=== PATIENT | male | born 1950 | race Caucasian/White ===

== ENCOUNTER 2016-06-05 11:03 | Inpatient (IN) ==
[2016-06-05] MEDS ORDERED: Piperacillin/Tazobactam 3.375 GM in D5% in Water (Mini-Bag+) 100 ML IVPB ONE (11:51)
[2016-06-05] MEDS ORDERED: Vancomycin 1,000 MG in D5% in Water 250 ML IV ONE (11:51)
--- NOTE | 2016-06-05 11:55 | Emergency Department Note ---
Disposition Clinical Impression: Foot ulcer, Cellulitis, Fever Disposition: Admitted As Inpatient Condition: Good Referrals: NO,PCP [Primary Care Provider] - Forms: ED Satisfaction Letter Time of Disposition: 13:36 Lower Extremity Injury HPI - General Chief Complaint: ED Recheck/Abnormal Lab/Rx Stated Complaint: foot wound Time Seen by Provider: 06/05/16 11:40 Source: police Mode of arrival: private vehicle Limitations: no limitations Nursing Notes Reviewed: Yes Vital Signs Reviewed: Yes - History of Present Illness HPI Narrative: This is a 65-year-old male who presents with police with an injury to his right plantar foot with a nail approximately 3 weeks ago. Patient is diabetic. Patient has an ulcer to his plantar right foot and he has redness and swelling of the right foot and streaking going up his right leg. Patient did finish some oral antibiotics through the [facility]. Patient states he has gotten worse no better. Patient's not had any fevers according to him but he is running a fever here. Pt Subjective Complaint: foot injury Injury location: Right foot - Related Data Allergies Allergy/AdvReac Type Severity Reaction Status Date / Time No Known Allergies Allergy Verified 11/30/15 16:37 All systems ED: reviewed and negative except as stated. Constitutional: Reports: fever. Denies: chills, weakness, weight change Eyes: Denies: eye pain, eye discharge, vision change ENT ED: Denies: ear pain, throat pain, dental pain, hearing loss, epistaxis, congestion, dysphagia Cardiovascular: Denies: chest pain, palpitations, dyspnea on exertion, edema, syncope Respiratory: Denies: cough, dyspnea, wheezes, hemoptysis, stridor Gastrointestinal: Denies: abdominal pain, nausea, vomiting, diarrhea, constipation, hematemesis, melena, hematochezia Genitourinary: Denies: urgency, dysuria, frequency, hematuria Musculoskeletal: Reports: arthralgia (R foot pain). Denies: back pain, neck pain, myalgia Integumentary: Reports: other (redness to R foot and R leg, ulcer to R plantar foot). Denies: rash, abrasion, lesions Neurological: Denies: headache, weakness, numbness, paresthesias, confusion, abnormal gait, vertigo Psychiatric: Denies: anxiety, depression, suicidal thoughts, homicidal thoughts , auditory hallucinations, visual hallucinations Endocrine: Denies: fatigue Hematological/Lymphatic: Denies: easy bleeding, easy bruising Allergic/Immunologic: Denies: facial swelling, urticaria Past Medical History - Past Medical History Attestation: Yes The following information was validated with the patient. Source: patient Medical history: Reports: cancer, diabetes, hyperlipidemia, hypertension Psychiatric history: Reports: anxiety, depression - Social History Smoking Status: Current every day smoker Smokeless Tobacco Status: No Alcohol use: Reports: none Drug use: Reports: none Physical Exam - General Limitations: no limitations General appearance: alert, in no apparent distress - Head Head exam: atraumatic, normocephalic, normal inspection - Eye Eye exam: Present: normal appearance, PERRL, EOMI - ENT ENT exam: normal exam, normal oropharynx, mucous membranes moist - Expanded ENT Exam External ear exam: Present: normal external inspection Mouth exam: Present: normal external inspection Teeth exam: Present: normal inspection Throat exam: Present: normal inspection - Neck Neck exam: Present: normal inspection, full ROM, trachea midline - Chest Chest inspection: Present: normal inspection, symmetric chest wall rise - Respiratory Respiratory exam: Present: normal lung sounds bilaterally - Cardiovascular Cardiovascular exam: Present: regular rate, normal rhythm, normal heart sounds - Abdominal Exam Abdominal exam: Present: soft, Non-Tender. Absent: tenderness, distention, guarding, rebound, rigidity - Extremities Exam Extremities exam: Present: normal inspection, full ROM, tenderness (R foot). Absent: pedal edema - Expanded Upper Extremity Exam Shoulder exam: Present: normal inspection, full ROM Arm exam: Present: normal inspection, full ROM Elbow exam: Present: normal inspection, full ROM Forearm/Wrist exam: Present: normal inspection, full ROM Hand exam: Present: normal inspection, full ROM Vascular exam: Normal: capillary refill, radial pulse - Expanded Lower Extremity Exam Hip/Pelvis exam: Present: normal inspection, full ROM Upper leg exam: Present: normal inspection, full ROM Knee exam: Present: normal inspection, full ROM Lower leg exam: Present: normal inspection, full ROM, erythema (R) Ankle exam: Present: normal inspection, full ROM, swelling (R), erythema (R) Foot/toe exam: Present: normal inspection, full ROM, swelling (R foot), erythema (R foot), other (ulcer to plantar foot) Neurovascular/Tendon exam: Absent: motor deficit, sensory deficit, tendon deficit - Back Exam Back exam: Present: normal inspection, full ROM. Absent: tenderness - Neurological Exam Neurological exam: Present: alert, oriented X3 - Expanded Neurological Exam Patient oriented to: Present: person, place, time Coma Scale Eye Opening: Spontaneous Coma Scale Motor Response: Obeys Commands Coma Scale Verbal Response: Oriented Coma Scale Total: 15 - Psychiatric Psychiatric exam: Present: normal affect, normal mood - Skin Skin exam: Present: warm, dry, normal color, other (ulcer to plantar R foot about 2 cm x 3 cm) Course - Consultations Consultation #1: I spoke with Dr. Norah garcia to admit and wants a call to Podiatry. Time: 13:36 Consultation #2: I spoke with Dr. Smith he will consult on the pt. Time: 13:39 Vital Signs Temperature 103.1 F H 06/05/16 11:14 Pulse Rate 84 06/05/16 11:14 Respiratory Rate 16 06/05/16 11:14 Blood Pressure 124/65 06/05/16 11:14 O2 Sat by Pulse Oximetry 98 06/05/16 11:14 Temperature 103.1 F H 06/05/16 11:14 Pulse Rate 84 06/05/16 11:14 Respiratory Rate 16 06/05/16 11:14 Blood Pressure 124/65 06/05/16 11:14 O2 Sat by Pulse Oximetry 98 06/05/16 11:14 Oxygen Delivery Oxygen Delivery Room Air Extremity Injury, Lower - Medical Records Medical records reviewed: Yes I reviewed the patient's medical records. - Lab Data Lab results reviewed: Yes I reviewed the patient's lab results. Result diagrams: 06/05/16 12:26 06/05/16 12:26 Lab Results 06/05/16 06/05/16 06/05/16 Range/Units 12:26 12:26 12:26 WBC 15.5 H (4.3-11.1) K/mcL RBC 3.89 L (4.19-5.50) M/mcL Hgb 12.0 L (12.9-16.9) g/dL Hct 35.5 L (37.5-50.1) % MCV 91.3 (83.0-100.0) fL MCH 30.8 (28.0-33.3) pg MCHC 33.8 (31.6-35.5) g/dL RDW 12.7 (11.5-14.5) % Plt Count 179 (140-400) K/mcL MPV 10.4 (9.4-12.4) fL Immature Gran % 0.7 (0-4) % Seg Neutrophils % 82.5 % Lymphocytes % 8.2 % Monocytes % 8.2 % Eosinophils % 0.3 % Basophils % 0.1 % Neutrophils # 12.8 H (1.6-8.9) K/mcL Lymphocytes # 1.3 (0.6-4.6) K/mcL Monocytes # 1.3 (0.0-1.3) K/mcL Eosinophils # 0.0 (0.0-0.6) K/mcL Basophils # 0.0 (0.0-0.2) K/mcL PT 16.9 H (9.4-12.1) Seconds INR 1.5 Sodium 132 L (136-145) mEq/L Potassium 4.0 (3.5-4.5) mEq/L Chloride 98 (98-109) mEq/L Carbon Dioxide 26 (19-29) mEq/L BUN 15 (8-26) mg/dL Creatinine 1.08 (0.72-1.25) mg/dL Est GFR ( Amer) > 60 (> 60) Est GFR (Non-Af Amer) > 60 (> 60) BUN/Creatinine Ratio 14 (6-26) Glucose 53 L (70-99) mg/dL Calculated Osmolality 272 L (280-300) Calcium 9.4 (8.6-10.8) mg/dL - Radiology Data Radiology results reviewed: Yes I reviewed the patient's radiology results. - EKG Data EKG attestation: Yes I reviewed and interpreted this EKG. EKG shows normal: sinus rhythm Rate: normal Rhythm: NSR Crosby/QRS: left axis deviation Interpretation: no acute changes, normal EKG
[2016-06-05 12:46] LABS: Basophils % 0.1 %; Eosinophils % 0.3 %; Hematocrit 35.5 % (37.5-50.1); Immature Granulocytes % 0.7 % (0-4); Lymphocytes # 1.3 K/mcL (0.6-4.6); Lymphocytes % 8.2 %; Mean Corpuscular HGB Conc 33.8 g/dL (31.6-35.5); Mean Corpuscular Hemoglobin 30.8 pg (28.0-33.3); Mean Corpuscular Volume 91.3 fL (83.0-100.0); Mean Platelet Volume 10.4 fL (9.4-12.4); Monocytes # 1.3 K/mcL (0.0-1.3); Monocytes % 8.2 %; Neutrophils # 12.8 K/mcL (1.6-8.9); Platelet Count 179 K/mcL (140-400); Red Blood Count 3.89 M/mcL (4.19-5.50); Red Cell Distribution Width 12.7 % (11.5-14.5); Segmented Neutrophils % 82.5 %
[2016-06-05 13:34] LABS: BUN/Creatinine Ratio 14 (6-26); Blood Urea Nitrogen 15 mg/dL (8-26); Calcium 9.4 mg/dL (8.6-10.8); Carbon Dioxide 26 mEq/L (19-29); Chloride 98 mEq/L (98-109); Glucose 53 mg/dL (70-99); Osmolality,Calculated 272 (280-300); Sodium 132 mEq/L (136-145); eGFR For African Americans > 60 (> 60); eGFR For Non-African Americans > 60 (> 60)
[2016-06-05 13:36] LABS: INR 1.5; Prothrombin Time 16.9 Seconds (9.4-12.1)
[2016-06-05 13:39] LABS: Activated Partial Thrombo Time 34.6 Seconds (26.0-36.0)
[2016-06-05] MEDS ORDERED: Naloxone 0.4 MG/ML INJ IVP PRN (13:45)
[2016-06-05] MEDS ORDERED: Ondansetron 4 MG/2 ML VIAL IVP PRN (13:45)
[2016-06-05] MEDS: Acetaminophen 325 MG TABLET PO PRN (14:14)
[2016-06-05] MEDS ORDERED: Td (TENIVAC) Vaccine 0.5 ML VIAL IM ONE (14:19)
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
[2016-06-05 14:42] LABS: Alanine Aminotransferase 49 Units/L (0-55); Albumin 2.4 g/dL (3.5-5.0); Albumin/Globulin Ratio 0.5 (1.1-2.2); Alkaline Phosphatase 163 Units/L (38-126); Aspartate Amino Transferase 63 Units/L (5-34); BUN/Creatinine Ratio 13 (6-26); Bilirubin,Total 1.2 mg/dL (0.2-1.2); Blood Urea Nitrogen 14 mg/dL (8-26); Calcium 8.6 mg/dL (8.6-10.8); Carbon Dioxide 26 mEq/L (19-29); Chloride 97 mEq/L (98-109); Globulin 5.2 g/dL (2.4-3.5); Glucose 93 mg/dL (70-99); Osmolality,Calculated 270 (280-300); Potassium 4.1 mEq/L (3.5-4.5); Sodium 130 mEq/L (136-145); Total Protein 7.6 g/dL (6.0-8.3); eGFR For African Americans > 60 (> 60); eGFR For Non-African Americans > 60 (> 60)
--- NOTE | 2016-06-05 15:15 | Event Note ---
Date of Encounter: 06/05/16 Time of Encounter: 14:30 I examined this patient and my medical decision-making was reviewed with Dr. Torres. I agree with the documented findings, disposition and treatment plan as described except to the extent set forth below. 65-year-old male presented [facility] emergency [facility] from [facility] due to swelling of his right foot with redness. Apparently, patient stepped on a nail one month ago before he was arrested and went to the [facility]. He was given 1 week course of by mouth antibiotics. He was incarcerated and states that he has been receiving care of the right foot also by podiatry while he was incarcerated. He states that he is currently on an antibiotic. Complains of 10 /10 pain in his right foot. Examination reveals erythema and edema over the right foot. A 1 cm unstageable ulcers present on the plantar aspect of the head of the second metatarsal. Probe test probes to the bone. Reduced sensation over both the lower extremities up to the knees. Clear to aspiration bilaterally. First and second heart sounds present. Regular rate and rhythm. Labs reviewed. 1. Sepsis due to diabetic foot ulcer-etiology is from stepping on a nail. Exam reveals ulcer which probes to the bone. High suspicion for osteomyelitis. Will obtain MRI. Podiatry consult. Broad-spectrum antibiotics. Intravenous fluids. Blood cultures have been obtained in the emergency room. Further management to depend on the results of MRI and based on recommendations by podiatry. Patient will be admitted to inpatient status. Expect the patient to stay in the hospital at least 2 midnights. Expected discharge disposition is back to the [facility]. High risk due to possible osteomyelitis which will require surgical intervention and possible long-term intravenous antibiotic therapy. 2. Diabetes mellitus type 2 on insulin at home completed by diabetic neuropathy -Hold insulin for now due to hypoglycemia. Sliding scale insulin. Resume gabapentin for his neuropathy. 3. Hypertension-monitor. Resume clonidine at a reduced dose to avoid rebound hypertension. 4. Patient reported history of liver cancer-we will obtain outpatient records for further information on the same. 5. Hyponatremia 6. Chronic anemia GINA Dominguez
[2016-06-05] MEDS: *HR* Heparin 5,000 UNIT/ML VIAL SQ SCH (15:45)
[2016-06-05] MEDS: cloNIDine HCl 0.1 MG TABLET PO SCH (15:55)
[2016-06-05] MEDS: 0.9 % Sodium Chloride 1,000 ML IVC SCH (15:59)
[2016-06-05] MEDS: Gabapentin 400 MG CAPSULE PO SCH (21:21)
[2016-06-05] MEDS: Lactulose Oral Soln 20 GM/30 ML UDC PO SCH (21:21)
[2016-06-05] MEDS: Piperacillin/Tazobactam 3.375 GM in D5% in Water (Mini-Bag+) 100 ML IVPB SCH (21:22)
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
[2016-06-06] MEDS: Acetaminophen 325 MG TABLET PO PRN ×3 (00:17→14:15)
[2016-06-06] MEDS: *HR* Heparin 5,000 UNIT/ML VIAL SQ SCH ×3 (00:18→14:06)
[2016-06-06] MEDS: Vancomycin 1,250 MG in D5% in Water 250 ML IVPB SCH ×2 (00:18→12:31)
[2016-06-06] MEDS ORDERED: Vancomycin 1,250 MG in D5% in Water 250 ML IVPB SCH (03:00)
[2016-06-06] MEDS ORDERED: Albuterol 2.5 MG/3 ML NEBULIZER IH PRN (04:09)
[2016-06-06] MEDS ORDERED: Nicotine 21 MG PATCH.TD24 TD PRN (04:09)
[2016-06-06] MEDS: Ipratropium/Albuterol Neb 3 ML IH SCH ×4 (04:58→21:43)
[2016-06-06 05:24] LABS: ABG Base Excess 5.4 mEq/L (-2.0 to 3.0); ABG HCO3 28.9 mEQ/L (21-27); ABG Oxygen Saturation 98 % (95-98); ABG PCO2 37 mmHg (35-45); ABG PO2 99 mmHg (85-104)
[2016-06-06] MEDS: Piperacillin/Tazobactam 3.375 GM in D5% in Water (Mini-Bag+) 100 ML IVPB SCH (05:25)
[2016-06-06 05:26] LABS: Blood Gas FiO2 28 %; Blood Gas Liter Flow 2 L/MIN
[2016-06-06 06:19] LABS: Hematocrit 30.5 % (37.5-50.1); Lymphocytes # 0.5 K/mcL (0.6-4.6); Mean Corpuscular HGB Conc 32.8 g/dL (31.6-35.5); Mean Corpuscular Hemoglobin 29.9 pg (28.0-33.3); Mean Platelet Volume 10.7 fL (9.4-12.4); Platelet Count 147 K/mcL (140-400); Red Blood Count 3.35 M/mcL (4.19-5.50); Red Cell Distribution Width 12.6 % (11.5-14.5)
[2016-06-06 06:30] LABS: Acinetobacter baumannii by PCR Not Detected (Not Detect); Candida albicans by PCR Not Detected (Not Detect); Candida glabrata by PCR Not Detected (Not Detect); Candida krusei by PCR Not Detected (Not Detect); Candida parapsilosis by PCR Not Detected (Not Detect); Candida tropicalis by PCR Not Detected (Not Detect); Enterococcus by PCR Not Detected (Not Detect); Escherichia coli by PCR Not Detected (Not Detect); Klebsiella oxytoca by PCR Not Detected (Not Detect); Klebsiella pneumoniae by PCR Not Detected (Not Detect); Pseudomonas aeruginosa by PCR Not Detected (Not Detect); Serratia marcescens by PCR Not Detected (Not Detect); Staphylococcus aureus by PCR ***DETECTED*** (Not Detect); Streptococcus agalactiae(B)PCR Not Detected (Not Detect); Streptococcus by PCR Not Detected (Not Detect); Streptococcus pneumoniae PCR Not Detected (Not Detect); Streptococcus pyogenes (A) PCR Not Detected (Not Detect); mecA Methicillin-Resist Gene ***DETECTED*** (Not Detect)
[2016-06-06 06:32] LABS: Alanine Aminotransferase 42 Units/L (0-55); Albumin 2.2 g/dL (3.5-5.0); Albumin/Globulin Ratio 0.4 (1.1-2.2); Alkaline Phosphatase 154 Units/L (38-126); Aspartate Amino Transferase 44 Units/L (5-34); BUN/Creatinine Ratio 18 (6-26); Bilirubin,Total 1.3 mg/dL (0.2-1.2); Blood Urea Nitrogen 20 mg/dL (8-26); Calcium 8.7 mg/dL (8.6-10.8); Carbon Dioxide 25 mEq/L (19-29); Chloride 99 mEq/L (98-109); Globulin 5.3 g/dL (2.4-3.5); Glucose 187 mg/dL (70-99); Osmolality,Calculated 282 (280-300); Potassium 4.2 mEq/L (3.5-4.5); Sodium 132 mEq/L (136-145); Total Protein 7.5 g/dL (6.0-8.3); eGFR For African Americans > 60 (> 60); eGFR For Non-African Americans > 60 (> 60)
[2016-06-06 06:49] LABS: Monocytes # 1.5 K/mcL (0.0-1.3); Neutrophils # 10.4 K/mcL (1.6-8.9); Platelet Estimate Normal (Normal)
[2016-06-06] MEDS: 0.9 % Sodium Chloride 1,000 ML IVC SCH ×4 (07:54→22:06)
[2016-06-06] MEDS: Gabapentin 400 MG CAPSULE PO SCH ×3 (08:06→21:33)
[2016-06-06] MEDS: cloNIDine HCl 0.1 MG TABLET PO SCH ×2 (08:06→08:14)
[2016-06-06] MEDS: Lactulose Oral Soln 20 GM/30 ML UDC PO SCH ×2 (08:06→21:34)
[2016-06-06] MEDS ORDERED: Aspirin Enteric Coated 81 MG Tablet PO SCH (09:00)
[2016-06-06] MEDS: Ampicillin/Sulbactam 3,000 MG in 0.9 % Sodium Chloride Mini Bag 100 ML IVPB SCH ×2 (12:31→21:33)
--- NOTE | 2016-06-06 13:20 | Event Note ---
Date of Encounter: 06/06/16 Time of Encounter: 12:00 I examined this patient and my medical decision-making was reviewed with Dr. Torres. I agree with the documented findings, disposition and treatment plan as described except to the extent set forth below. Patient had MRI performed yesterday. Currently, he is awaiting surgery by podiatry. Reports the pain is better controlled with medications. Examination reveals erythema and swelling over the extremity with dressing over it. Tenderness to palpation. One set of blood cultures positive for gram-positive cocci-PCR positive for MRSA. MRI reveals bony changes consistent with early osteomyelitis. 1. Sepsis on admission-improving. Etiology is osteomyelitis of the right foot. Podiatry on board. Surgical amputation of the second toe today by podiatry. Etiological organism is likely MRSA. Will obtain echocardiogram to evaluate for infective endocarditis as the patient has MRSA septicemia. 2. Diabetes mellitus type 2 on insulin, complicated by diabetic neuropathy- sliding-scale insulin. 3. Hypertension 4. Chronic anemia 5. Hyponatremia Garett Almazan MD
[2016-06-06] MEDS ORDERED: Bupivacaine/Clonidine Syringe 1 EACH SYRINGE ONE (14:55)
--- NOTE | 2016-06-06 15:02 | Anesthesia Evaluation PreOp ---
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 BARBER History: Denies Any Significant HX Other Medical History: Hepatic (liver CA S/P chemo), Diabetes Type II, Other ( anxiety/depression/PTSD) Anesthesia History: No Prior Anesthetic Complications, Past Anesthesia Alcohol Use: none Drug use: none Medications and Allergies Aspirin [Lo-Dose Aspirin EC] 162 mg PO DAILY 06/05/16 [History] CloNIDine HCl [Kapvay] 0.1 mg PO TID 06/05/16 [History] Escitalopram [Lexapro] 20 mg PO DAILY 06/05/16 [History] Gabapentin [Neurontin] 800 mg PO TID 06/05/16 [History] Insulin ASPART [Novolog] 10 unit SQ TIDWM 06/05/16 [History] Insulin Glargine,Hum.rec.anlog [Lantus Solostar] 30 unit SQ HS 06/05/16 [History ] Insulin Glargine,Hum.rec.anlog [Lantus Solostar] 40 unit SQ QAM 06/05/16 [ History] Lactulose 15 ml PO BID 06/05/16 [History] Prazosin [Minipress] 1 mg PO HS 06/05/16 [History] Allergies No Known Allergies Allergy (Verified 11/30/15 16:37) - Meds/Allergy Pre-op Review Medications Reviewed: Yes Allergies Reviewed: Yes Beta Blockers on Current Med List: No Anesthesia Results - Labs 06/06/16 06:01 06/06/16 06:01 Anesthesia Exam Vital Signs/O2 Sat/Glucose, Most Recent Temp Pulse Resp BP Pulse Ox 98.3 F 82 18 132/78 98 06/06/16 14:55 06/06/16 14:55 06/06/16 14:55 06/06/16 14:55 06/06/16 14:55 Blood Glucose* 190 Height: 6'4''/1.93 m Weight: 179 lbs/81.193 kg NPO (# of Hours): 8 Pain Scale: 8 (right foot) Pain Scale Used: Numeric (1 - 10) - HEENT Pupil (Motor): EOMI Mallampati: II Teeth: Edentulous Oral Opening: Greater than 3 - DOG BARBER LOC: Oriented DOG BARBER Motor: Normal RUE, Normal LUE, Normal RLE, Normal LLE, Normal Face DOG BARBER Sensory: Normal: LUE, Face, Deficit: RUE, RLE, LLE - Cardiac Rhythm: Regular Murmur: None - Pulmonary Breath Sounds: bilateral Clear Respiratory Effort: Symmetrical Anesthesia Assess/Plan ASA Score: 3 Modified Tad Scale for Level of Consciousness: Cooperative, oriented, and tranquil Anesthetic Plan: MAC Monitoring Plan: Standard Monitors Recovery Plan: PACU
[2016-06-06] MEDS ORDERED: *HR* Propofol 200 MG/20 ML VIAL IVP ONE ×2 (15:33→15:56)
[2016-06-06] MEDS ORDERED: Lidocaine -MPF 2% 2 ML VIAL ONE (15:34)
--- NOTE | 2016-06-06 15:43 | Electrocardiograph Report ---
[facility] Test Date: 2016-06-05 Pat Name: Clement Mcneil Department: 102 Room: [facility] Gender: M Rn Community: [place] : 1950 Requested By: Edward Arteaga Order Number: [id number] Reading MD: Merary Mckeon Measurements Intervals [place] Rate: 88 P: 71 NV: 168 QRS: -31 QRSD: 90 T: 33 QT: 311 QTc: 357 Interpretive Statements SINUS RHYTHM MARKED LEFT AXIS DEVIATION [QRS AXIS < -30] Electronically Signed On 06-06-16 15:41:58 EST by Merary Mckeon
--- NOTE | 2016-06-06 16:54 | Internal Med Progress Note ---
Date of Encounter: 06/06/16 Time of Encounter: 10:00 - Assessment and plan (1) Sepsis Current Visit: Yes Status: Acute Assessment and plan: Blood cultures positive for MRSA. Will continue Vancomycin. PCR negative for pseudomonas. Will deescalate abx to unaysn. Patient is afebirle and wbc has decreased to 13. Continue IVF. Patient is NPO for surgery. Qualifiers: Sepsis type: methicillin resistant Staphylococcus aureus Qualified Code(s) : A41.02 - Sepsis due to Methicillin resistant Staphylococcus aureus (2) Osteomyelitis Current Visit: Yes Status: Suspected Assessment and plan: MRI is indicative of R. 2nd metatarsal osteomyelitis. Qualifiers: Osteomyelitis location: foot Laterality: right Chronicity: acute Qualified Code(s): M86.171 - Other acute osteomyelitis, right ankle and foot (3) Foot ulcer Current Visit: Yes Status: Acute Qualifiers: Laterality: right Non-pressure ulcer stage: with necrosis of muscle Qualified Code(s): L97.513 - Non-pressure chronic ulcer of other part of right foot with necrosis of muscle (4) Cellulitis Current Visit: Yes Status: Acute Qualifiers: Site of cellulitis: extremity Site of cellulitis of extremity: lower extremity Laterality: right Qualified Code(s): L03.115 - Cellulitis of right lower limb (5) HTN (hypertension) Current Visit: Yes Status: Acute Assessment and plan: BP is under control. Continue clonidine and prazosin. Qualifiers: Hypertension type: essential hypertension Qualified Code(s): I10 - Essential (primary) hypertension (6) Diabetes mellitus Current Visit: Yes Status: Chronic Assessment and plan: Blood glucose 197 in the morning. We will start patient on his night insulin of 30units levamir. NPO for surgery. Q6h accuchecks. Qualifiers: Diabetes mellitus type: type 1 Diabetes mellitus complication status: with skin complications Diabetes mellitus complication detail: with foot ulcer Qualified Code(s): E10.621 - Type 1 diabetes mellitus with foot ulcer; L97.509 - Non-pressure chronic ulcer of other part of unspecified foot with unspecified severity (7) DVT prophylaxis Current Visit: Yes Status: Acute Assessment and plan: heaprin SQ (8) History of liver cancer Current Visit: Yes Status: Chronic Assessment and plan: Records are being requested. Denies abdominal pain, nasuea, vomiting. Patient admits to hx of alcoholism. He states he quit drinking four years back. AST, Alk phos and billirubin are elevated. (9) Abnormal ankle brachial index Current Visit: Yes Status: Acute Assessment and plan: LLE JOEY is .59 and RLE JOEY is .82. This indicates patient does have vascular disease. He denies leg cramps or pain with walking. He will need to be seen outpatient by vascular surgery for further work up for the abnormal results which include initial arterial dopplers of b/l extremities. - Subjective Interval history: Patient continues to have right foot pain. He will undergo surgery today w/ possible amputation of 2nd metatarsal. He denies CP, palpitations, sob, nausea, abdominal pain. - Constitutional Vitals: Temp Pulse Resp BP Pulse Ox 98.3 F 82 18 132/78 98 06/06/16 14:55 06/06/16 14:55 06/06/16 14:55 06/06/16 14:55 06/06/16 14:55 General appearance: Present: mild distress, A&O X 3 - Respiratory Respiratory exam: Present: CTAB. Absent: rales, rhonchi, wheezes - Cardiovascular Cardiovascular exam: Present: RRR, +S1, +S2 - GI/Abdominal GI/Abdominal exam: Present: normal bowel sounds, soft. Absent: distended, tenderness - Extremities Exam Additional comments: Right lower extremity erythema and warmth up to mid calf. Right ankle swollen. Stage IV diabetic foot ulcer on plantar aspect of right foot. Purple discoloration of right 2nd toe. Dorsalis pedis and posterior tibial pulse 2/4 on LLE and difficult to palpate due to swelling on RLE. Internal Medicine: Result - Labs CBC & Chem 7: 06/06/16 06:01 06/06/16 06:01 Labs: Short CBC 06/06/16 Range/Units 06:01 WBC 12.4 H (4.3-11.1) K/mcL Hgb 10.0 L D (12.9-16.9) g/dL Hct 30.5 L (37.5-50.1) % Plt Count 147 (140-400) K/mcL Neutrophils # 10.4 H (1.6-8.9) K/mcL BMP 06/06/16 06:01 Sodium 132 L Potassium 4.2 Chloride 99 Carbon Dioxide 25 BUN 20 Creatinine 1.10 Glucose 187 H Calcium 8.7 Liver Function 06/06/16 Range/Units 06:01 Total Bilirubin 1.3 H (0.2-1.2) mg/dL AST 44 H (5-34) Units/L ALT 42 (0-55) Units/L Alkaline Phosphatase 154 H (38-126) Units/L Albumin 2.2 L (3.5-5.0) g/dL - ABG Interpretation ABG results: ABG ABG pH 7.50 pH Units (7.32-7.45) H 06/06/16 05:14 ABG pCO2 37 mmHg (35-45) 06/06/16 05:14 ABG pO2 99 mmHg (85-104) 06/06/16 05:14 ABG O2 Saturation 98 % (95-98) 06/06/16 05:14 PT/INR, D-dimer PT 16.9 Seconds (9.4-12.1) H 06/05/16 12:26 - Impressions Impressions Foot MRI 06/05/16 15:09 IMPRESSION: 1. Soft tissue ulceration along the base of the 2nd toe with underlying marrow signal abnormality concerning for early osteomyelitis. 2. Diffuse soft tissue and muscular edema with subcutaneous fluid seen focally involving the 2nd toe compatible with blistering. Correlate clinically for cellulitis. D/ / Jesus Avila MD / Jesus Avila MD Interpreting Provider: Jesus Avila MD Chest X-Ray 06/06/16 04:09 IMPRESSION: Negative portable chest. D/ / Osmar Valero MD / Osmar Valero MD Interpreting Provider: Osmar Valero MD Consult Discharge Plan - Plan Referrals: NO,PCP [Primary Care Provider] -
--- NOTE | 2016-06-06 17:40 | Arterial Study Report ---
LE Arterial Physiologic Study Patient Name:Clement Mcneil Order Number:[id number] Procedure Date:06/05/2016 Date:1950ge:65 yrs Gender:Male Lt BP:124 / mmHg Rt.BP:85 / mmHgHeart Rate: Location:[facility] Room #: [facility] Nurse Reviewer:Kierra Flaherty Referring MD:Wesley Torres DO rn tele:None Reading MD:Jordan Solorio MD , FACS Primary Indications:Right Foot Cyanosis Risk Factors Yes/No Hypertension Yes Diabetes Yes Hypercholesterolemia Yes Smoking Current Yes Impressions: 1) Right lower extremity waveform demonstrates mildly diminished hemodynamics. 2) Right Ankle Brachial Index demonstrates mildly occlusive disease. 1) Left lower extremity waveform demonstrates mildly diminished hemodynamics. 2) Left Ankle Brachial Index demonstrates moderately occlusive disease. Recommendations: Preliminary given to Pt RNLudy, at bedside. Test completed on 07/06/2015 at 4:10:00 pm. Findings There was a 39 mmHg difference between the right and left brachial pressures. LE Arterial Physiologic Exam: PVR: Right: The PVR waveforms are mildly diminished in the right ankle. Left: The PVR waveforms are mildly diminished in the left ankle. Prior Study: No prior study available for comparison. Segmental Pressures Side Location Pressure Index Result Right Posterior Tibial 102 0.82 Mildly Diminished Right Dorsalis Pedis 85 0.69 Mildly Diminished Left Posterior Tibial 73 0.59 Moderately Diminished Left Dorsalis Pedis 70 0.56 Moderately Diminished Ankle Brachial Index Right Systolic Diastolic JOEY Brachial 85 0.82 Dorsalis Pedis 85 0.69 Posterior Tibial 102 0.82 Left Systolic Diastolic JOEY Brachial 124 0.59 Dorsalis Pedis 70 0.56 Posterior Tibial 73 0.59 Updated by Jordan Solorio MD, FACS on 06/06/2016 5:35:55 PM with Status of Final Jordan Solorio MD electronically signed on 06/06/2016 5:36:47 PM with status of Final
[2016-06-06] MEDS: Insulin DETEMIR 100 UNIT/ML X5UNITS SQ SCH (21:35)
[2016-06-06] MEDS: *HR* HYDROcodone/Acet 7.5/325 mg TABLET PO PRN (22:06)
[2016-06-07] MEDS: *HR* Heparin 5,000 UNIT/ML VIAL SQ SCH ×3 (00:38→15:47)
[2016-06-07] MEDS: Vancomycin 1,250 MG in D5% in Water 250 ML IVPB SCH ×2 (00:38→13:52)
[2016-06-07] MEDS: *HR* Morphine 2 MG/ML SYRINGE IVP PRN ×4 (00:39→15:47)
[2016-06-07] MEDS: Acetaminophen 325 MG TABLET PO PRN (00:48)
[2016-06-07] MEDS: Ampicillin/Sulbactam 3,000 MG in 0.9 % Sodium Chloride Mini Bag 100 ML IVPB SCH ×4 (01:55→18:48)
[2016-06-07 05:13] LABS: Basophils % 0.2 %; Eosinophils # 0.1 K/mcL (0.0-0.6); Eosinophils % 0.5 %; Hematocrit 30.2 % (37.5-50.1); Hemoglobin 9.7 g/dL (12.9-16.9); Immature Granulocytes % 0.4 % (0-4); Lymphocytes # 0.7 K/mcL (0.6-4.6); Lymphocytes % 6.2 %; Mean Corpuscular HGB Conc 32.1 g/dL (31.6-35.5); Mean Corpuscular Hemoglobin 29.6 pg (28.0-33.3); Mean Corpuscular Volume 92.1 fL (83.0-100.0); Mean Platelet Volume 10.7 fL (9.4-12.4); Monocytes % 9.7 %; Neutrophils # 8.8 K/mcL (1.6-8.9); Platelet Count 158 K/mcL (140-400); Red Blood Count 3.28 M/mcL (4.19-5.50); Red Cell Distribution Width 12.7 % (11.5-14.5)
[2016-06-07 05:44] LABS: BUN/Creatinine Ratio 17 (6-26); Blood Urea Nitrogen 17 mg/dL (8-26); Calcium 8.5 mg/dL (8.6-10.8); Carbon Dioxide 27 mEq/L (19-29); Chloride 98 mEq/L (98-109); Glucose 285 mg/dL (70-99); Magnesium 2.2 mg/dL (1.6-2.6); Osmolality,Calculated 284 (280-300); Sodium 131 mEq/L (136-145); eGFR For African Americans > 60 (> 60); eGFR For Non-African Americans > 60 (> 60)
[2016-06-07] MEDS: *HR* HYDROcodone/Acet 7.5/325 mg TABLET PO PRN ×3 (06:02→20:47)
[2016-06-07] MEDS: Ipratropium/Albuterol Neb 3 ML IH SCH ×3 (06:02→16:32)
--- NOTE | 2016-06-07 07:42 | Operative Note ---
Date of procedure: 06/06/16 Pre-op diagnosis: Right second digit gangrene, right foot infection Post-op diagnosis: same Procedure: Incision and drainage right foot. Amputation of the entire second digit right foot. Excision of ulceration plantar aspect right foot. Partial resection of second metatarsal, right foot. Bone biopsy. Flap advancement right foot. Application of wound VAC. Implants: Wound VAC Complications: None Anesthesia: MAC Surgeon: Pranav Smith Estimated blood loss (cc): 10 Specimen: Second digit right foot, second metatarsal right foot Condition: stable Disposition: PACU Procedure in Detail: Patient was transferred to the operating room and placed on the operating table in the supine position. Following Mac anesthesia with local the patient's foot was scrubbed prepped and draped in the usual aseptic fashion. A timeout was performed. Incision and drainage right foot was performed circumferentially around the significantly malodorous, ischemic, second digit. Purulence was expressed and cultured. Amputation of the entire second digit right foot was then performed by extending the circumferential incision and drainage through deeper layers of tissue and disarticulating the second digit at the metatarsal phalangeal joint. After the second digit was amputated the site was inspected and necrotic tissue was noted around the plantar ulceration. Excision of ulceration plantar aspect right foot was then performed. Skin was excised circumferentially around the ulceration until healthy bleeding borders were noted. Partial resection of second metatarsal, right foot was then performed due to inability to close the site without resection and due to the purulence which tracked up the second metatarsal. A sagittal saw was utilized to partially resect the distal aspect of the second metatarsal. The bone/soft tissue was sent for biopsy. Flap advancement right foot was then performed by advancing flaps on either side of the wound near the great toe and third digit. The flaps allowed for partial closure of the wound. The proximal aspect of the flap advancement was left open slightly to allow for wound VAC placement. A wound VAC was placed in the interspace dorsally and along the proximal most aspect of the incision. Additional dressings consisting of cast padding were applied around the wound VAC. The patient tolerated the procedure well and was transported to the floor. The patient will need at least 6 weeks of antibiotics as well as wound VAC changes on Sunday and Sunday or at least every 72 hours. Patient will need to remain nonweightbearing. Patient will follow-up within a week of discharge.
[2016-06-07] MEDS: cloNIDine HCl 0.1 MG TABLET PO SCH (08:16)
[2016-06-07] MEDS: Gabapentin 400 MG CAPSULE PO SCH ×3 (08:16→20:47)
[2016-06-07] MEDS: Lactulose Oral Soln 20 GM/30 ML UDC PO SCH ×2 (08:17→20:46)
--- NOTE | 2016-06-07 10:05 | ECHO - Doppler Report ---
Echocardiogram Name: Clement Mcneil Date of Study: 06/06/2016 Date: 1950 Ht: 76.0 in Medical Record#: [id number] Age: 65 Wt: 179.0 lb Gender: Male BSA: 2.11 Order #: [id number] Location: [facility] Room #: [facility] Reading Physician: Lila Jon DO Net Developer Software Engineer C: Reena Servin Ordering Physician: Lamont Wallace DO Primary Physician: [facility] Indications: MRSA bacteremia , Evaluate for endocarditis Impressions: LVEF 45%. Mild LV systolic dysfunction with regional wall motion abnormality. There is evidence of mild diastolic dysfunction of the left ventricle. Normal right ventricular size and function. Mild mitral regurgitation. Mild tricuspid regurgitation. Estimated RVSP was 48 mmHg. Mild pulmonary hypertension. No identifiable valvular vegetations on this study. Left Ventricular Wall Motion: Rest Echo Findings The apical septal, mid inferior septal, basal inferior septal, mid anterior septal and basal anterior septal hartman were hypokinetic. All other wall segments showed normal motion. Findings: Study Quality * Technically adequate exam. ECG Findings * Normal sinus rhythm. Probable first degree AVB. Left Ventricle * LVEF 45%. * Normal LV size. * Mild left ventricular diastolic dysfunction. Left Atrium * Mildly dilated left atrium. Mitral Valve * Mild mitral annular calcification * Mild mitral regurgitation. * Mildly calcified mitral valve leaflets. * No mitral stenosis. Aortic Valve * No aortic regurgitation. * Aortic valve not well visualized. * No aortic stenosis. Tricuspid Valve * Normal tricuspid valve structure. * Mild tricuspid regurgitation. * Estimated RA pressure is 3 mmHg. * Estimated RVSP is 48 mmHg. * Mild pulmonary hypertension. Pulmonic Valve * Pulmonic valve is not well visualized. * No pulmonic stenosis. * No pulmonic regurgitation. Pulmonary Artery * Pulmonary artery not well visualized. Right Atrium * Normal right atrial size. Right Ventricle * Normal right ventricular structure and function. Interatrial Septum * No evidence of PFO by color Doppler. IVC * Normal IVC dimensions and inspiratory collapse. Aorta * Normally sized aortic root. Pericardium * There is no pericardial effusion present. History Hypertension Diabetes Years 40 Packs 2 Measurements: BP: 137/ 80 2D Normal Values IVSd: 1.10 cm 0.6 - 1.0 cm LVIDd: 5.20 cm 3.7 - 5.6 cm LVPWd: 1.10 cm 0.6 - 1.1 cm LVIDs: 3.70 cm 1.5 - 3.6 cm AO: 3.30 cm < 4.0 cm LA: 4.80 cm 2.0 - 4.0cm %FS: 28.80 cm >25 % LA volume: 89 Mitral Valve Peak E:1.20 m/sec Peak A:1.20 m/sec E/A Ratio:1 Peak E' Lat Gavin:17.3 cm/s Peak E' Med Gavin:12.7 cm/s Tricuspid Valve TV Regurg Peak Grad: 45.00mmHg Updated by Lila Jon on 06/07/2016 9:55:37 AM electronically signed on 06/07/2016 9:57:03 AM with status of Final Wall Motion Watkins: 1=Normal, 2=Hypokinesis, 3=Akinesis, 4=Dyskinesis, 5=Aneurysmal, 6=Hyperkinetic, X=Not Visualized (Blank)=Missing
[2016-06-07] MEDS: 0.9 % Sodium Chloride 1,000 ML IVC SCH (13:52)
--- NOTE | 2016-06-07 17:26 | Internal Med Progress Note ---
<Wesley Torres - Last Filed: 06/07/16 17:23> Date of Encounter: 06/07/16 Time of Encounter: 11:00 - Assessment and plan (1) Sepsis Current Visit: Yes Status: Acute Assessment and plan: Blood cultures positive for MRSA. Patients would culture is positive for MRSA and strep viridans. Will continue vanc and unaysn. Patient is NPO after midnight for EMELY. Will redraw blood cultures tomorrow to see if mRSA bacteremia is persistent. Patient will need outpatient abx for up to 6 weeks. Will need to be d/c with picc line. Qualifiers: Sepsis type: methicillin resistant Staphylococcus aureus Qualified Code(s) : A41.02 - Sepsis due to Methicillin resistant Staphylococcus aureus (2) Endocarditis Current Visit: Yes Status: Suspected Assessment and plan: Patient has MRSA bacteremia and wound cultures positive for strep viridans. We have ordered a TTE: LVEF 45%, mild LV systolic dysfunction and apical septal, mid inferior septal , basal inferior septal, mid anterior and basal anterior septal wall motion abnormalities. There is also mild tricuspid and mitral regurg. On this study there were no valvular vegetations. He is at high risk for endocarditis so EMELY will be ordered for better evaluation. Continue vancomycin. Qualifiers: Endocarditis type: infective Infective endocarditis organism: bacterial Chronicity: acute Qualified Code(s): I33.0 - Acute and subacute infective endocarditis (3) Osteomyelitis Current Visit: Yes Status: Suspected Assessment and plan: MRI is indicative of R. 2nd metatarsal osteomyelitis. 2nd to MRSA and strep viridans. Qualifiers: Osteomyelitis location: foot Laterality: right Chronicity: acute Qualified Code(s): M86.171 - Other acute osteomyelitis, right ankle and foot (4) Foot ulcer Current Visit: Yes Status: Acute Qualifiers: Laterality: right Non-pressure ulcer stage: with necrosis of muscle Qualified Code(s): L97.513 - Non-pressure chronic ulcer of other part of right foot with necrosis of muscle (5) Cellulitis Current Visit: Yes Status: Acute Qualifiers: Site of cellulitis: extremity Site of cellulitis of extremity: lower extremity Laterality: right Qualified Code(s): L03.115 - Cellulitis of right lower limb (6) HTN (hypertension) Current Visit: Yes Status: Acute Assessment and plan: BP is under control. Continue clonidine and prazosin. Qualifiers: Hypertension type: essential hypertension Qualified Code(s): I10 - Essential (primary) hypertension (7) Diabetes mellitus Current Visit: Yes Status: Chronic Assessment and plan: Blood glucose 197 in the morning. We will start patient on his night insulin of 30units levamir. Have added morning 20units of levamir as he remains hyperglycemic. He is NPO for EMELY. Q6h accuchecks. Qualifiers: Diabetes mellitus type: type 1 Diabetes mellitus complication status: with skin complications Diabetes mellitus complication detail: with foot ulcer Qualified Code(s): E10.621 - Type 1 diabetes mellitus with foot ulcer; L97.509 - Non-pressure chronic ulcer of other part of unspecified foot with unspecified severity (8) DVT prophylaxis Current Visit: Yes Status: Acute Assessment and plan: heaprin SQ (9) History of liver cancer Current Visit: Yes Status: Chronic Assessment and plan: Records are being requested. Denies abdominal pain, nasuea, vomiting. Patient admits to hx of alcoholism. He states he quit drinking four years back. AST, Alk phos and billirubin are elevated. (10) Abnormal ankle brachial index Current Visit: Yes Status: Acute Assessment and plan: LLE JOEY is .59 and RLE JOEY is .82. This indicates patient does have vascular disease. He denies leg cramps or pain with walking. He will need to be seen outpatient by vascular surgery for further work up for the abnormal results which include initial arterial dopplers of b/l extremities. (11) Ischemic cardiomyopathy Current Visit: Yes Status: Chronic Assessment and plan: As noted above in echo patient has low EF and wall motion abnormalities, with LV systolic dysfunction. Patient will need stress test in the future for evaluation of CAD. Have ordered TSH and lipid panel. - Subjective Interval history: POD 1 s/p R. 2nd metatarsal amputation with I&D. Patient's wound is drained with wound vac. He complains of diaphoresis, and right foot pain. He denies chest pain, sob, abdominal pain, dysuria, lower extremity swelling. - Constitutional Vitals: Temp Pulse Resp BP Pulse Ox 98.4 F 97 14 144/75 85 L 06/07/16 15:28 06/07/16 15:28 06/07/16 16:32 06/07/16 15:28 06/07/16 16:32 General appearance: Present: mild distress, A&O X 3 - Respiratory Respiratory exam: Present: CTAB. Absent: rales, rhonchi, wheezes - Cardiovascular Cardiovascular exam: Present: RRR, +S1, +S2 - Extremities Exam Additional comments: R. foot swollen and erythematous. 2nd toe is amputated. There is a wound vac inserted between first and second metatarsal. Patients r. foot is clean dry and bandaged in kerlex. Wound vac is draining minimal purulent fluid of 5cc. - Incison Incision: Present: clean and dry, intact, erythema. Absent: purulent Internal Medicine: Result - Labs CBC & Chem 7: 06/07/16 04:51 06/07/16 04:51 Labs: Short CBC 06/07/16 Range/Units 04:51 WBC 10.6 (4.3-11.1) K/mcL Hgb 9.7 L (12.9-16.9) g/dL Hct 30.2 L (37.5-50.1) % Plt Count 158 (140-400) K/mcL Neutrophils # 8.8 (1.6-8.9) K/mcL BMP 06/07/16 04:51 Sodium 131 L Potassium 4.0 Chloride 98 Carbon Dioxide 27 BUN 17 Creatinine 1.03 Glucose 285 H Calcium 8.5 L - ABG Interpretation ABG results: ABG ABG pH 7.50 pH Units (7.32-7.45) H 06/06/16 05:14 ABG pCO2 37 mmHg (35-45) 06/06/16 05:14 ABG pO2 99 mmHg (85-104) 06/06/16 05:14 ABG O2 Saturation 98 % (95-98) 06/06/16 05:14 PT/INR, D-dimer PT 16.9 Seconds (9.4-12.1) H 06/05/16 12:26 Consult Discharge Plan - Plan Referrals: NO,PCP [Primary Care Provider] - <Garett Almazan - Last Filed: 06/07/16 18:09> - Constitutional Vitals: Temp Pulse Resp BP Pulse Ox 98.4 F 97 14 144/75 85 L 06/07/16 15:28 06/07/16 15:28 06/07/16 16:32 06/07/16 15:28 06/07/16 16:32 Internal Medicine: Result - Labs CBC & Chem 7: 06/07/16 04:51 06/07/16 04:51 Labs: Short CBC 06/07/16 Range/Units 04:51 WBC 10.6 (4.3-11.1) K/mcL Hgb 9.7 L (12.9-16.9) g/dL Hct 30.2 L (37.5-50.1) % Plt Count 158 (140-400) K/mcL Neutrophils # 8.8 (1.6-8.9) K/mcL BMP 06/07/16 04:51 Sodium 131 L Potassium 4.0 Chloride 98 Carbon Dioxide 27 BUN 17 Creatinine 1.03 Glucose 285 H Calcium 8.5 L - ABG Interpretation ABG results: ABG ABG pH 7.50 pH Units (7.32-7.45) H 06/06/16 05:14 ABG pCO2 37 mmHg (35-45) 06/06/16 05:14 ABG pO2 99 mmHg (85-104) 06/06/16 05:14 ABG O2 Saturation 98 % (95-98) 06/06/16 05:14 PT/INR, D-dimer PT 16.9 Seconds (9.4-12.1) H 06/05/16 12:26 - Attending Attestation I examined this patient and my medical decision-making was reviewed with Dr. Torres. I agree with the documented findings, disposition and treatment plan as described except to the extent set forth below. Patient seen today. Reports feeling better and pain well controlled. Denies SOB , cough. Exam reveals wound vac on right LE. CTAB. No new murmurs auscultated. ECHO with 45% EF and multiple WMAs. No vegetations seen. 1. Sepsis on presentation due to MRSA osteomyelitis and septicemia - Continue vanco. S/p surgery with bone biopsy. Follow cultures. ECHO does not show vegetations. Repeat Blood cultures tomorrow for checking for bacterial clearance. DC fluids. Isolation. Will need total 6 weeks antibiotics. Check ESR & CRP. High risk due to osteomyelitis, need for IV abx, new CHF and need for further workup and may require interventions for the same. 2. Diabetic foot ulcer with osteomyelitis - as above 3. DM-2 with neuropathy - Insulin. SSI. 4. Systolic CHF - Chronic. Euvolemic now. New diagnosis. Has multiple WMAs on ECHO. Suspicious for recent cardiac event. Will request cardiology consult. May need eventual LHC. Start BB, statin. ASA when okay per podiatry. DC clonidine. Eventual ACEI/ARB prior to DC. DANNY DominguezBS
[2016-06-07] MEDS: Insulin DETEMIR 100 UNIT/ML X5UNITS SQ SCH (20:49)
[2016-06-07] MEDS ORDERED: D5% in Water 1,000 ML IV PRN (23:56)
[2016-06-07] MEDS ORDERED: Dextrose Gel 15 GM PO PRN ×2 (23:56)
[2016-06-07] MEDS ORDERED: *HR* Dextrose 50 % in Water (Syg) 50 ML SYRINGE IVP PRN (23:56)
[2016-06-08] MEDS: Ipratropium/Albuterol Neb 3 ML IH SCH ×5 (00:22→20:38)
[2016-06-08] MEDS: Ampicillin/Sulbactam 3,000 MG in 0.9 % Sodium Chloride Mini Bag 100 ML IVPB SCH ×2 (00:40→05:05)
[2016-06-08] MEDS: *HR* Heparin 5,000 UNIT/ML VIAL SQ SCH ×3 (00:44→16:02)
[2016-06-08] MEDS: Insulin LISPRO 300 UNITS/3 ML VIAL SQ SCH ×5 (00:53→20:31)
[2016-06-08] MEDS: Acetaminophen 325 MG TABLET PO PRN (00:56)
[2016-06-08] MEDS: Vancomycin 1,250 MG in D5% in Water 250 ML IVPB SCH ×2 (01:15→14:04)
[2016-06-08] MEDS: *HR* Morphine 2 MG/ML SYRINGE IVP PRN ×4 (01:19→23:03)
[2016-06-08 04:53] LABS: Basophils % 0.2 %; Eosinophils # 0.2 K/mcL (0.0-0.6); Eosinophils % 2.5 %; Hematocrit 27.2 % (37.5-50.1); Hemoglobin 8.7 g/dL (12.9-16.9); Immature Granulocytes % 0.6 % (0-4); Lymphocytes % 11.2 %; Mean Corpuscular Hemoglobin 29.4 pg (28.0-33.3); Mean Corpuscular Volume 91.9 fL (83.0-100.0); Mean Platelet Volume 10.7 fL (9.4-12.4); Monocytes # 0.9 K/mcL (0.0-1.3); Monocytes % 9.8 %; Neutrophils # 6.7 K/mcL (1.6-8.9); Platelet Count 162 K/mcL (140-400); Red Blood Count 2.96 M/mcL (4.19-5.50); Red Cell Distribution Width 12.9 % (11.5-14.5); Segmented Neutrophils % 75.7 %
[2016-06-08 05:06] LABS: Chol/HDL Ratio 6.1 (0-4.9)
[2016-06-08 05:09] LABS: BUN/Creatinine Ratio 18 (6-26); Blood Urea Nitrogen 15 mg/dL (8-26); Calcium 8.5 mg/dL (8.6-10.8); Carbon Dioxide 26 mEq/L (19-29); Chloride 106 mEq/L (98-109); Glucose 122 mg/dL (70-99); Osmolality,Calculated 282 (280-300); Potassium 3.6 mEq/L (3.5-4.5); Sodium 135 mEq/L (136-145); eGFR For African Americans > 60 (> 60); eGFR For Non-African Americans > 60 (> 60)
[2016-06-08 05:27] LABS: Thyroid Stimulating Hormone 1.199 mcIU/mL (0.350-4.840)
[2016-06-08 05:36] LABS: C-Reactive Protein 178 mg/L (Less than 5)
[2016-06-08] MEDS: Gabapentin 400 MG CAPSULE PO SCH ×3 (09:25→20:29)
[2016-06-08] MEDS: Metoprolol XL (24 HR) Succ 25 MG TAB.ER.24H PO SCH ×2 (09:25→14:04)
[2016-06-08] MEDS: Insulin DETEMIR 100 UNIT/ML X5UNITS SQ SCH ×2 (09:25→20:30)
[2016-06-08] MEDS: Lactulose Oral Soln 20 GM/30 ML UDC PO SCH ×3 (09:25→20:31)
--- NOTE | 2016-06-08 09:39 | Event Note ---
Date of Encounter: 06/08/16 Time of Encounter: 09:00 I examined this patient and my medical decision-making was reviewed with Dr. Torres. I agree with the documented findings, disposition and treatment plan as described except to the extent set forth below. Patient states he is feeling well. Denies any pain in his legs. Denies shortness of breath, cough or wheezing. Results of the echo. Discussed with him. Possibility of coronary artery disease discussed with him. Patient mentioned that about 6-8 months ago he had left-sided chest pain associated with shortness of breath and dry cough. He also reports that he had left heart catheterization performed at [facility] about one year ago. His admission reveals patient in no acute distress sitting in a chair. Wound VAC connected to right foot. Clear breath sounds bilaterally. First and second heart sounds present. No new murmurs. Echocardiogram reveals ejection fraction that is reduced with wall motion abnormalities. Labs reviewed. Elevated ESR and CRP. 1. Sepsis present on admission due to MRSA osteomyelitis and septicemia- vancomycin. Repeat blood cultures. Needs total of 6 weeks intravenous antibiotics. PICC line placement after repeat blood cultures are negative for MRSA bacteremia. ESR and CRP are elevated. Patient is high risk due to MRSA osteomyelitis and septicemia and need for intravenous antibiotic therapy and need for further cardiac workup for his newly diagnosed systolic CHF. 2. Newly diagnosed systolic CHF-euvolemic. Chronic likely. May be related to a coronary event about 6 or 8 months ago given his history. Cardiac consult. Will obtain records from [facility] regarding his left heart catheterization. 3. Diabetes mellitus type 2 with [id number] insulin. Adjust insulin dose accordingly. Garett Almazan MD
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
--- NOTE | 2016-06-08 09:41 | Podiatry Progress Note ---
Date of Encounter: 06/07/16 Time of Encounter: 09:38 - Assessment and Plan (1) Foot ulcer Current Visit: Yes Status: Acute Due to the severity of the infection the patient will need 6 weeks of IV antibiotic therapy. Due to the culture results vancomycin will likely be needed with pharmacy dosing. PICC line will need to be placed. Patient will need to remain nonweightbearing to the right lower extremity. Dispense a surgical shoe although patient should remain nonweightbearing. Patient will follow-up one week after discharge. Patient will continue the wound VAC. Qualifiers: Qualified Code(s): L97.513 - Non-pressure chronic ulcer of other part of right foot with necrosis of muscle Subjective Principal diagnosis: Osteomyelitis/bacteremia Interval history: Patient relates very little pain. Patient relates that he is feeling better since his surgery. Patient denies any other pedal complaints Objective - Vital Signs Vital Signs: Vital Signs Temp Pulse Resp BP Pulse Ox 06/08/16 06:51 97.6 F 97 17 127/85 96 06/08/16 04:41 17 94 L 06/08/16 01:20 99.9 F H 92 16 134/75 97 06/07/16 22:11 97.4 F L 90 17 183/83 94 L 06/07/16 16:32 14 85 L 06/07/16 15:28 98.4 F 97 17 144/75 95 06/07/16 11:28 16 141/81 96 06/07/16 11:11 98.6 F 89 16 141/81 96 Intake and Output 06/07/16 06/08/16 06/08/16 23:59 07:59 15:59 Intake Total 500 / 500 100 / 100 Output Total 680 / 680 300 / 300 Balance -180 / -180 -200 / -200 Intake: IV Fluids 100 / 100 100 / 100 Unasyn 3,000 MG In 0.9 % 100 / 100 100 / 100 Sodium Chloride (Mini-Bag +) 100 ML @ 200 mls/hr IVPB Q6HR [facility] Rx#: [id number] Oral 400 / 400 Output: Urine 680 / 680 300 / 300 Other: Blood Glucose* 386 93 - Exam Exam: The wound VAC is intact and there are no signs of dehiscence. Decreased erythema is noted. Pedal pulses palpable 1/4 bilaterally. Capillary fill time intact to the remaining digits. Sensation continues to be significantly decreased secondary to peripheral neuropathy. Culture results are back which show resistance to multiple drugs with the exception of vancomycin. Incision: Present: healing Capillary Refill: less than 3 seconds - Lab Result Diagrams: 06/08/16 04:24 06/08/16 04:24 Labs: Abnormal lab results RBC 2.96 M/mcL (4.19-5.50) L 06/08/16 04:24 Hgb 8.7 g/dL (12.9-16.9) L 06/08/16 04:24 Hct 27.2 % (37.5-50.1) L 06/08/16 04:24 Band Neutrophils % 8.0 % (0-4) H 06/06/16 06:01 ESR 107 mm/hr (0-10) H 06/08/16 04:24 PT 16.9 Seconds (9.4-12.1) H 06/05/16 12:26 ABG pH 7.50 pH Units (7.32-7.45) H 06/06/16 05:14 ABG HCO3 28.9 mEQ/L (21-27) H 06/06/16 05:14 ABG Total CO2 30.0 mEq/L (20-26) H 06/06/16 05:14 ABG Base Excess 5.4 mEq/L (-2.0 to 3.0) H 06/06/16 05:14 Sodium 135 mEq/L (136-145) L 06/08/16 04:24 Glucose 122 mg/dL (70-99) H 06/08/16 04:24 POC Glucose 325 (58-89) H 06/08/16 00:50 Calcium 8.5 mg/dL (8.6-10.8) L 06/08/16 04:24 Total Bilirubin 1.3 mg/dL (0.2-1.2) H 06/06/16 06:01 AST 44 Units/L (5-34) H 06/06/16 06:01 Alkaline Phosphatase 154 Units/L (38-126) H 06/06/16 06:01 C-Reactive Protein 178 mg/L (Less than 5) H 06/08/16 04:24 Albumin 2.2 g/dL (3.5-5.0) L 06/06/16 06:01 Globulin 5.3 g/dL (2.4-3.5) H 06/06/16 06:01 Albumin/Globulin Ratio 0.4 (1.1-2.2) L 06/06/16 06:01 HDL Cholesterol 16 mg/dL (40-59) L 06/08/16 04:24 Cholesterol/HDL Ratio 6.1 (0-4.9) H 06/08/16 04:24 Staphylococcus sp PCR DETECTED (Not Detect) A 06/05/16 12:29 Staph aureus (PCR) DETECTED (Not Detect) A 06/05/16 12:29 MRS (TEM-PCR) DETECTED (Not Detect) A 06/05/16 12:29 Microbiology, Last 48 Hours 06/05/16 16:17 Wound Culture - Final Right Foot Methicillin Resistant S.aureus Enterococcus faecalis Streptococcus viridans group Consult Discharge Plan - Plan Referrals: NO,PCP [Primary Care Provider] -
--- NOTE | 2016-06-08 09:59 | Internal Med Progress Note ---
Date of Encounter: 06/08/16 Time of Encounter: 08:00 - Assessment and plan (1) Sepsis Current Visit: Yes Status: Acute Assessment and plan: Blood cultures positive for MRSA. Patients would culture is positive for MRSA and strep viridans. Will continue vanc and d/c unasyn. Awaiting blood cultures to see if mRSA bacteremia is persistent. Once blood cultures are clear will place order or picc line. Patient will need outpatient abx for up to 6 weeks. Qualifiers: Sepsis type: methicillin resistant Staphylococcus aureus Qualified Code(s) : A41.02 - Sepsis due to Methicillin resistant Staphylococcus aureus (2) Ischemic cardiomyopathy Current Visit: Yes Status: Suspected Assessment and plan: As noted above in echo patient has low EF and wall motion abnormalities, with LV systolic dysfunction. Patient will need stress test in the future for evaluation of CAD. Cardiology was consulted for recommendations. As patient had workup in [facility] with [facility], we will request records. Patient is anemic at the moment and cardiology does not recommend further workup until anemia has resolved. He should follow up out patient with [place] cardiology. (3) Anemia Current Visit: Yes Status: Acute Assessment and plan: Patients hgb dropped from 9.7 to 8.7 in the past 24 hours and from 12 on admission. During his visit he has a positive fluid balance of 4000, therefore this can be dilutional however his platelets have not decreased in the same manner. We will order repeat CBC and stool guaiac. Patients MCV and RDW are wnl. Patients vitals are stable. He denies chest pain, sob, light headedness. Qualifiers: Anemia type: unspecified type Qualified Code(s): D64.9 - Anemia, unspecified (4) Endocarditis Current Visit: Yes Status: Suspected Assessment and plan: Patient has MRSA bacteremia and wound cultures positive for strep viridans. We have ordered a TTE: LVEF 45%, mild LV systolic dysfunction and apical septal, mid inferior septal , basal inferior septal, mid anterior and basal anterior septal wall motion abnormalities. There is also mild tricuspid and mitral regurg. On this study there were no valvular vegetations. Continue vancomycin. Awaiting repeat blood cultures. IF blood cultures persistent with MRSA bacteremia than EMELY will be considered. Qualifiers: Endocarditis type: infective Infective endocarditis organism: bacterial Chronicity: acute Qualified Code(s): I33.0 - Acute and subacute infective endocarditis (5) Osteomyelitis Current Visit: Yes Status: Suspected Assessment and plan: MRI is indicative of R. 2nd metatarsal osteomyelitis. 2nd to MRSA, strep viridans, and enterococcus. COntinue vancomycin. Renal function is intact. Qualifiers: Osteomyelitis location: foot Laterality: right Chronicity: acute Qualified Code(s): M86.171 - Other acute osteomyelitis, right ankle and foot (6) Foot ulcer Current Visit: Yes Status: Acute Qualifiers: Laterality: right Non-pressure ulcer stage: with necrosis of muscle Qualified Code(s): L97.513 - Non-pressure chronic ulcer of other part of right foot with necrosis of muscle (7) Cellulitis Current Visit: Yes Status: Acute Qualifiers: Site of cellulitis: extremity Site of cellulitis of extremity: lower extremity Laterality: right Qualified Code(s): L03.115 - Cellulitis of right lower limb (8) HTN (hypertension) Current Visit: Yes Status: Acute Assessment and plan: BP is under control. Continue clonidine and prazosin. Qualifiers: Hypertension type: essential hypertension Qualified Code(s): I10 - Essential (primary) hypertension (9) Diabetes mellitus Current Visit: Yes Status: Chronic Assessment and plan: Blood glucose controlled. Continue insulin regimen. ACHS accuchecks. Qualifiers: Diabetes mellitus type: type 1 Diabetes mellitus complication status: with skin complications Diabetes mellitus complication detail: with foot ulcer Qualified Code(s): E10.621 - Type 1 diabetes mellitus with foot ulcer; L97.509 - Non-pressure chronic ulcer of other part of unspecified foot with unspecified severity (10) DVT prophylaxis Current Visit: Yes Status: Acute Assessment and plan: heaprin SQ. (11) History of liver cancer Current Visit: Yes Status: Chronic Assessment and plan: Records are being requested. Denies abdominal pain, nasuea, vomiting. Patient admits to hx of alcoholism. He states he quit drinking four years back. AST, Alk phos and billirubin are elevated. (12) Abnormal ankle brachial index Current Visit: Yes Status: Acute Assessment and plan: LLE JOEY is .59 and RLE JOEY is .82. This indicates patient does have vascular disease. He denies leg cramps or pain with walking. He will need to be seen outpatient by vascular surgery for further work up for the abnormal results which include initial arterial dopplers of b/l extremities. - Subjective Interval history: POD 2 s/p R. 2nd metatarsal amputation with I&D. Patient states his right foot pain is under control. He was told about his echocardiogram results indicating LV systolic dysfunction and LVEF of 45%. He understands the need of further cardiac workup. - Constitutional Vitals: Temp Pulse Resp BP Pulse Ox 97.6 F 97 17 127/85 96 06/08/16 06:51 06/08/16 06:51 06/08/16 06:51 06/08/16 06:51 06/08/16 06:51 General appearance: Present: mild distress, A&O X 3 - Respiratory Respiratory exam: Present: CTAB. Absent: rales, rhonchi, wheezes - Cardiovascular Cardiovascular exam: Present: RRR, +S1, +S2 - GI/Abdominal GI/Abdominal exam: Present: normal bowel sounds. Absent: distended, tenderness - Extremities Exam Extremities exam: Present: pedal edema (LLE. ). Absent: calf tenderness Additional comments: Lfoot clean and dry. wrapped in kerlex and patients wound is drained with VAC. - Skin Skin exam: Present: dry, intact Additional comments: Erythema of LLE. Internal Medicine: Result - Labs CBC & Chem 7: 06/08/16 04:24 06/08/16 04:24 Labs: Short CBC 06/08/16 Range/Units 04:24 WBC 8.8 (4.3-11.1) K/mcL Hgb 8.7 L (12.9-16.9) g/dL Hct 27.2 L (37.5-50.1) % Plt Count 162 (140-400) K/mcL Neutrophils # 6.7 (1.6-8.9) K/mcL BMP 06/08/16 04:24 Sodium 135 L Potassium 3.6 Chloride 106 Carbon Dioxide 26 BUN 15 Creatinine 0.83 Glucose 122 H Calcium 8.5 L - ABG Interpretation ABG results: ABG ABG pH 7.50 pH Units (7.32-7.45) H 06/06/16 05:14 ABG pCO2 37 mmHg (35-45) 06/06/16 05:14 ABG pO2 99 mmHg (85-104) 06/06/16 05:14 ABG O2 Saturation 98 % (95-98) 06/06/16 05:14 PT/INR, D-dimer PT 16.9 Seconds (9.4-12.1) H 06/05/16 12:26 Consult Discharge Plan - Plan Referrals: NO,PCP [Primary Care Provider] -
[2016-06-08] MEDS: *HR* HYDROcodone/Acet 7.5/325 mg TABLET PO PRN ×2 (14:15→20:30)
[2016-06-09] MEDS: Vancomycin 1,250 MG in D5% in Water 250 ML IVPB SCH ×2 (00:56→13:00)
[2016-06-09] MEDS: *HR* Heparin 5,000 UNIT/ML VIAL SQ SCH ×4 (00:56→23:53)
[2016-06-09] MEDS: *HR* HYDROcodone/Acet 7.5/325 mg TABLET PO PRN ×3 (02:45→17:42)
[2016-06-09] MEDS: Ipratropium/Albuterol Neb 3 ML IH SCH ×4 (04:18→18:34)
[2016-06-09 06:40] LABS: Basophils % 0.4 %; Eosinophils # 0.2 K/mcL (0.0-0.6); Hematocrit 27.5 % (37.5-50.1); Hemoglobin 8.9 g/dL (12.9-16.9); Immature Granulocytes % 1.4 % (0-4); Lymphocytes # 1.1 K/mcL (0.6-4.6); Lymphocytes % 14.4 %; Mean Corpuscular HGB Conc 32.4 g/dL (31.6-35.5); Mean Corpuscular Hemoglobin 29.7 pg (28.0-33.3); Mean Corpuscular Volume 91.7 fL (83.0-100.0); Mean Platelet Volume 10.3 fL (9.4-12.4); Monocytes # 0.8 K/mcL (0.0-1.3); Monocytes % 9.9 %; Neutrophils # 5.6 K/mcL (1.6-8.9); Platelet Count 179 K/mcL (140-400); Red Cell Distribution Width 13.2 % (11.5-14.5); Segmented Neutrophils % 70.9 %
[2016-06-09 06:45] LABS: BUN/Creatinine Ratio 14 (6-26); Blood Urea Nitrogen 11 mg/dL (8-26); Calcium 8.7 mg/dL (8.6-10.8); Carbon Dioxide 27 mEq/L (19-29); Chloride 102 mEq/L (98-109); Glucose 108 mg/dL (70-99); Osmolality,Calculated 276 (280-300); Potassium 3.5 mEq/L (3.5-4.5); Sodium 133 mEq/L (136-145); eGFR For African Americans > 60 (> 60); eGFR For Non-African Americans > 60 (> 60)
[2016-06-09] MEDS: Insulin LISPRO 300 UNITS/3 ML VIAL SQ SCH ×4 (08:26→21:56)
[2016-06-09] MEDS: Lactulose Oral Soln 20 GM/30 ML UDC PO SCH ×2 (09:35→21:48)
[2016-06-09] MEDS: Gabapentin 400 MG CAPSULE PO SCH ×3 (09:36→21:48)
[2016-06-09] MEDS: Insulin DETEMIR 100 UNIT/ML X5UNITS SQ SCH ×2 (09:36→21:48)
[2016-06-09] MEDS: Metoprolol XL (24 HR) Succ 25 MG TAB.ER.24H PO SCH (09:36)
--- NOTE | 2016-06-09 09:58 | Event Note ---
Date of Encounter: 06/09/16 Time of Encounter: 09:15 I examined this patient and my medical decision-making was reviewed with Dr. Torres. I agree with the documented findings, disposition and treatment plan as described except to the extent set forth below. Pt. feeling better today. Exam CTAB. No new murmurs. 1. MRSA osteomyelitis and septicemia - IV vanco. Unasyn DC yesterday. Follow repeat cultures. [facility]3 per note. May not need PICC line if he will get 6 weeks [facility]x [facility] prior to [facility]. High risk due to need for IV vanco for his osteomyelitis. 2. CHF - Systolic; chronic. Appreciate cardio input. ACEI and BB. Eventual out patient CAD work up. Garett Almazan MD
[2016-06-09] MEDS ORDERED: Lidocaine -MPF 1% 5 ML AMPUL INFILT ONE (12:14)
--- NOTE | 2016-06-09 12:57 | Internal Med Progress Note ---
Date of Encounter: 06/09/16 Time of Encounter: 10:00 - Assessment and plan (1) Sepsis Current Visit: Yes Status: Resolved Assessment and plan: 2nd to MRSA osteomylitis Will continue vanc. Dr. Smith has ordered PICC line for patient. Preliminary repeat blood cultures negative for bacteremia. We have discussed with Dr. Smith that patient will need at least 2 weeks of IV vancomycin as bone cultures from surgical procedure were negative. He will be d/ c to [facility] for futher care on Sunday. Patient will follow up with Dr. Smith outpatient. Qualifiers: Sepsis type: methicillin resistant Staphylococcus aureus Qualified Code(s) : A41.02 - Sepsis due to Methicillin resistant Staphylococcus aureus (2) Ischemic cardiomyopathy Current Visit: Yes Status: Suspected Assessment and plan: As noted above in echo patient has low EF and wall motion abnormalities, with LV systolic dysfunction. Patient will need stress test in the future for evaluation of CAD. Cardiology was consulted for recommendations. As patient had workup in [facility] with [facility], we will request records. Patient is anemic at the moment and cardiology does not recommend further workup until anemia has resolved. He should follow up out patient with [place] cardiology. (3) Anemia Current Visit: Yes Status: Suspected Assessment and plan: Patients hgb dropped from 9.7 to 8.7 and from 12 on admission. During his visit he has a positive fluid balance of 4000, therefore this can be dilutional however his platelets have not decreased in the same manner. Hgb stable in the past 24 hours. Qualifiers: Anemia type: unspecified type Qualified Code(s): D64.9 - Anemia, unspecified (4) Endocarditis Current Visit: Yes Status: Suspected Assessment and plan: Patient has MRSA bacteremia and wound cultures positive for strep viridans. We ordered TTE: LVEF 45%, mild LV systolic dysfunction and apical septal, mid inferior septal , basal inferior septal, mid anterior and basal anterior septal wall motion abnormalities. There is also mild tricuspid and mitral regurg. On this study there were no valvular vegetations. Continue vancomycin. Awaiting repeat blood cultures. IF blood cultures persistent with MRSA bacteremia than EMELY will be considered. Qualifiers: Endocarditis type: infective Infective endocarditis organism: bacterial Chronicity: acute Qualified Code(s): I33.0 - Acute and subacute infective endocarditis (5) Osteomyelitis Current Visit: Yes Status: Suspected Assessment and plan: MRI is indicative of R. 2nd metatarsal osteomyelitis. 2nd to MRSA, strep viridans, and enterococcus. COntinue vancomycin. Renal function is intact. Qualifiers: Osteomyelitis location: foot Laterality: right Chronicity: acute Qualified Code(s): M86.171 - Other acute osteomyelitis, right ankle and foot (6) Foot ulcer Current Visit: Yes Status: Acute Qualifiers: Laterality: right Non-pressure ulcer stage: with necrosis of muscle Qualified Code(s): L97.513 - Non-pressure chronic ulcer of other part of right foot with necrosis of muscle (7) Cellulitis Current Visit: Yes Status: Acute Qualifiers: Site of cellulitis: extremity Site of cellulitis of extremity: lower extremity Laterality: right Qualified Code(s): L03.115 - Cellulitis of right lower limb (8) HTN (hypertension) Current Visit: Yes Status: Acute Qualifiers: Hypertension type: essential hypertension Qualified Code(s): I10 - Essential (primary) hypertension (9) Diabetes mellitus Current Visit: Yes Status: Chronic Assessment and plan: Blood glucose controlled. Continue insulin regimen. ACHS accuchecks. Qualifiers: Diabetes mellitus type: type 1 Diabetes mellitus complication status: with skin complications Diabetes mellitus complication detail: with foot ulcer Qualified Code(s): E10.621 - Type 1 diabetes mellitus with foot ulcer; L97.509 - Non-pressure chronic ulcer of other part of unspecified foot with unspecified severity (10) DVT prophylaxis Current Visit: Yes Status: Acute Assessment and plan: heaprin SQ. (11) History of liver cancer Current Visit: Yes Status: Chronic Assessment and plan: Records are being requested. Denies abdominal pain, nasuea, vomiting. Patient admits to hx of alcoholism. He states he quit drinking four years back. AST, Alk phos and billirubin are elevated. (12) Abnormal ankle brachial index Current Visit: Yes Status: Acute Assessment and plan: LLE JOEY is .59 and RLE JOEY is .82. This indicates patient does have vascular disease. He denies leg cramps or pain with walking. He will need to be seen outpatient by vascular surgery for further work up for the abnormal results which include initial arterial dopplers of b/l extremities. - Subjective Interval history: POD 3 s/p R. 2nd metatarsal amputation with I&D. Patient states his right foot pain is under control. Patient will be d/c on sunday to [facility]. - Constitutional Vitals: Temp Pulse Resp BP Pulse Ox 98.7 F 95 18 161/77 97 06/09/16 11:29 06/09/16 11:29 06/09/16 11:29 06/09/16 11:29 06/09/16 11:29 General appearance: Present: mild distress, A&O X 3 - Respiratory Respiratory exam: Present: CTAB. Absent: rales, rhonchi, wheezes - Cardiovascular Cardiovascular exam: Present: RRR, +S1, +S2 - GI/Abdominal GI/Abdominal exam: Present: normal bowel sounds, soft, no peritoneal signs. Absent: distended, tenderness - Extremities Exam Extremities exam: Present: tenderness (r. leg), radial pulses palpable and symetrical Additional comments: Decrease R. Leg swelling compared to yesterday. Wound vacc draining serosanguinous fluid. Internal Medicine: Result - Labs CBC & Chem 7: 06/09/16 06:06 06/09/16 06:06 Labs: Short CBC 06/09/16 Range/Units 06:06 WBC 7.9 (4.3-11.1) K/mcL Hgb 8.9 L (12.9-16.9) g/dL Hct 27.5 L (37.5-50.1) % Plt Count 179 (140-400) K/mcL Neutrophils # 5.6 (1.6-8.9) K/mcL BMP 06/09/16 06:06 Sodium 133 L Potassium 3.5 Chloride 102 Carbon Dioxide 27 BUN 11 Creatinine 0.81 Glucose 108 H Calcium 8.7 - ABG Interpretation ABG results: ABG ABG pH 7.50 pH Units (7.32-7.45) H 06/06/16 05:14 ABG pCO2 37 mmHg (35-45) 06/06/16 05:14 ABG pO2 99 mmHg (85-104) 06/06/16 05:14 ABG O2 Saturation 98 % (95-98) 06/06/16 05:14 PT/INR, D-dimer PT 16.9 Seconds (9.4-12.1) H 06/05/16 12:26 Consult Discharge Plan - Plan Referrals: NO,PCP [Primary Care Provider] -
[2016-06-09] MEDS: *HR* Morphine 2 MG/ML SYRINGE IVP PRN (21:57)
[2016-06-10] MEDS: Vancomycin 1,250 MG in D5% in Water 250 ML IVPB SCH ×2 (01:59→12:13)
[2016-06-10] MEDS: *HR* HYDROcodone/Acet 7.5/325 mg TABLET PO PRN ×3 (02:08→15:33)
[2016-06-10] MEDS: Ipratropium/Albuterol Neb 3 ML IH SCH ×2 (04:26)
[2016-06-10] MEDS: *HR* Morphine 2 MG/ML SYRINGE IVP PRN ×3 (05:54→19:27)
[2016-06-10 06:15] LABS: Basophils % 0.3 %; Eosinophils # 0.3 K/mcL (0.0-0.6); Eosinophils % 3.7 %; Hemoglobin 8.9 g/dL (12.9-16.9); Immature Granulocytes % 1.8 % (0-4); Lymphocytes # 1.1 K/mcL (0.6-4.6); Lymphocytes % 15.8 %; Mean Corpuscular Hemoglobin 30.7 pg (28.0-33.3); Mean Corpuscular Volume 93.1 fL (83.0-100.0); Mean Platelet Volume 10.2 fL (9.4-12.4); Monocytes # 0.8 K/mcL (0.0-1.3); Monocytes % 10.6 %; Neutrophils # 4.8 K/mcL (1.6-8.9); Platelet Count 189 K/mcL (140-400); Red Cell Distribution Width 13.3 % (11.5-14.5); Segmented Neutrophils % 67.8 %
[2016-06-10 06:24] LABS: BUN/Creatinine Ratio 14 (6-26); Blood Urea Nitrogen 11 mg/dL (8-26); Calcium 8.7 mg/dL (8.6-10.8); Carbon Dioxide 29 mEq/L (19-29); Chloride 99 mEq/L (98-109); Glucose 256 mg/dL (70-99); Osmolality,Calculated 284 (280-300); Potassium 3.6 mEq/L (3.5-4.5); Sodium 133 mEq/L (136-145); eGFR For African Americans > 60 (> 60); eGFR For Non-African Americans > 60 (> 60)
[2016-06-10] MEDS: Insulin LISPRO 300 UNITS/3 ML VIAL SQ SCH ×4 (08:56→21:03)
[2016-06-10] MEDS: *HR* Heparin 5,000 UNIT/ML VIAL SQ SCH ×2 (08:58→15:33)
[2016-06-10] MEDS: Metoprolol XL (24 HR) Succ 25 MG TAB.ER.24H PO SCH (09:00)
[2016-06-10] MEDS: Lactulose Oral Soln 20 GM/30 ML UDC PO SCH ×2 (09:01→21:02)
[2016-06-10] MEDS: Gabapentin 400 MG CAPSULE PO SCH ×3 (09:02→21:02)
[2016-06-10] MEDS: Insulin DETEMIR 100 UNIT/ML X5UNITS SQ SCH ×2 (09:10→21:02)
--- NOTE | 2016-06-10 13:08 | Internal Med Progress Note ---
Date of Encounter: 06/10/16 Time of Encounter: 10:30 (0) - Assessment and plan (1) Sepsis Current Visit: Yes Status: Acute Assessment and plan: 2nd to MRSA osteomylitis s/p amputation of the infected bone Will continue vanc. PICC line placed yesterday Will need at least 2 weeks of antibiotics from the date of surgery with a tentative end date of June 21, 2016. Rifampin started today. 1 month of rifampin. He will follow up with Dr. Smith in 2 weeks at which time IV vancomycin may be prolonged depending on his clinical progression. Repeat blood cultures obtained on 06/08/2016. Awaiting final cultures to determine bacterial clearance. If repeat blood cultures are negative, he can be discharged home (as he will not need to go to long-term as the is dropping charges) with vancomycin set up at home through the [place]. Patient is currently high risk due to need for intravenous vancomycin which requires level monitoring and is at risk of acute tubular necrosis from vancomycin. Outpatient weekly CBC, BMP, ESR and CRP. Qualifiers: Sepsis type: methicillin resistant Staphylococcus aureus Qualified Code(s) : A41.02 - Sepsis due to Methicillin resistant Staphylococcus aureus (2) HTN (hypertension) Current Visit: Yes Status: Chronic Assessment and plan: BP is under control. Continue current medications. Qualifiers: Hypertension type: essential hypertension Qualified Code(s): I10 - Essential (primary) hypertension (3) Diabetes mellitus Current Visit: Yes Status: Chronic Assessment and plan: Blood glucose controlled. Continue the current insulin regimen. ACHS accuchecks. Management of diabetic foot ulcer by podiatry. Status post amputation of right second toe and part of the second metatarsal. Wound VAC in place that needs to be changed 3 times a week. Outpatient follow-up with podiatry in 2 weeks of discharge. Qualifiers: Diabetes mellitus type: type 2 Diabetes mellitus complication status: with skin complications Diabetes mellitus complication detail: with foot ulcer Diabetes mellitus mcc insulin use: with terminal supervisor use Qualified Code(s) : E11.621 - Type 2 diabetes mellitus with foot ulcer; L97.509 - Non-pressure chronic ulcer of other part of unspecified foot with unspecified severity; Z79.4 - senior living (current) use of insulin (4) CHF (congestive heart failure) Current Visit: Yes Status: Chronic Assessment and plan: Cardiomyopathy with ejection fraction of 45%. Unknown if this is new or old. Patient apparently has had a left heart catheterization and since I deviate over a year ago. [facility]. Appreciate cardiology input. No further acute inpatient cardiac workup according to cardiology. Patient is on Toprol-XL and SILVIA inhibitor Qualifiers: Congestive heart failure type: combined Congestive heart failure chronicity : chronic Qualified Code(s): I50.42 - Chronic combined systolic (congestive) and diastolic (congestive) heart failure (5) Ischemic cardiomyopathy Current Visit: Yes Status: Chronic Assessment and plan: As above - Subjective Interval history: Patient denies any pain. States that he will not need to go back to the long-term. He states that he was in long-term due to complaint 5 by his . However, the is currently complaining the patient states that she would drop the charges on Sunday when she will go to court. The patient had a PICC line placed yesterday. He is currently receiving vancomycin. He has a wound VAC in place. He denies any difficulty breathing, chest pain or cough or wheezing. - Constitutional Vitals: Temp Pulse Resp BP Pulse Ox 98.1 F 91 16 148/76 97 06/10/16 10:19 06/10/16 10:19 06/10/16 10:19 06/10/16 10:19 06/10/16 10:19 Exam: Gen.: Lying in bed. No acute distress. Chest: Clear to auscultation bilaterally. No adventitious sounds present. CVS: First and second heart sounds present. No murmurs, rubs or gallops. Abdomen: Soft, nontender, nondistended. Bowel sounds present. Internal Medicine: Result - Labs CBC & Chem 7: 06/10/16 05:50 06/10/16 05:50 Labs: Short CBC 06/10/16 Range/Units 05:50 WBC 7.1 (4.3-11.1) K/mcL Hgb 8.9 L (12.9-16.9) g/dL Hct 27.0 L (37.5-50.1) % Plt Count 189 (140-400) K/mcL Neutrophils # 4.8 (1.6-8.9) K/mcL BMP 06/10/16 05:50 Sodium 133 L Potassium 3.6 Chloride 99 Carbon Dioxide 29 BUN 11 Creatinine 0.79 Glucose 256 H Calcium 8.7 - ABG Interpretation ABG results: ABG ABG pH 7.50 pH Units (7.32-7.45) H 06/06/16 05:14 ABG pCO2 37 mmHg (35-45) 06/06/16 05:14 ABG pO2 99 mmHg (85-104) 06/06/16 05:14 ABG O2 Saturation 98 % (95-98) 06/06/16 05:14 PT/INR, D-dimer PT 16.9 Seconds (9.4-12.1) H 06/05/16 12:26 Consult Discharge Plan - Plan Referrals: NO,PCP [Primary Care Provider] -
[2016-06-10] MEDS: rifAMPin 150 MG CAPSULE PO SCH (15:34)
[2016-06-10] MEDS: Ipratropium/Albuterol Neb 3 ML IH PRN (20:23)
[2016-06-11] MEDS: Vancomycin 1,250 MG in D5% in Water 250 ML IVPB SCH ×2 (00:31→11:55)
[2016-06-11] MEDS: *HR* Heparin 5,000 UNIT/ML VIAL SQ SCH ×3 (00:32→16:23)
[2016-06-11] MEDS: *HR* Morphine 2 MG/ML SYRINGE IVP PRN ×4 (01:42→22:42)
[2016-06-11] MEDS: Ipratropium/Albuterol Neb 3 ML IH PRN ×2 (04:27→21:04)
[2016-06-11] MEDS: rifAMPin 150 MG CAPSULE PO SCH ×2 (08:27→16:24)
[2016-06-11] MEDS: Gabapentin 400 MG CAPSULE PO SCH ×3 (08:28→22:40)
[2016-06-11] MEDS: Lactulose Oral Soln 20 GM/30 ML UDC PO SCH ×2 (08:28→22:40)
[2016-06-11] MEDS: Insulin LISPRO 300 UNITS/3 ML VIAL SQ SCH ×4 (08:34→22:38)
[2016-06-11] MEDS: Insulin DETEMIR 100 UNIT/ML X5UNITS SQ SCH ×2 (08:38→22:47)
[2016-06-11] MEDS ORDERED: Metoprolol XL (24 HR) Succ 25 MG TAB.ER.24H PO SCH (09:00)
[2016-06-11 15:48] LABS: Hematocrit 32.6 % (37.5-50.1); Hemoglobin 10.4 g/dL (12.9-16.9)
[2016-06-11 16:02] LABS: Magnesium 1.7 mg/dL (1.6-2.6); Phosphorous 4.7 mg/dL (2.3-4.7)
--- NOTE | 2016-06-11 17:23 | Event Note ---
Date of Encounter: 06/11/16 Time of Encounter: 03:15 Internal medicine Progress note - Assessment and plan (1) Cellulitis Current Visit: Yes Status: Acute Qualifiers: Site of cellulitis: extremity Site of cellulitis of extremity: lower extremity Laterality: right Qualified Code(s): L03.115 - Cellulitis of right lower limb (2) Foot ulcer Current Visit: Yes Status: Acute Assessment and plan: Continue current antibiotic , Podiatry on board Qualifiers: Laterality: right Non-pressure ulcer stage: with necrosis of muscle Qualified Code(s): L97.513 - Non-pressure chronic ulcer of other part of right foot with necrosis of muscle (3) Sepsis Current Visit: Yes Status: Acute Assessment and plan: 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 need at least 2 weeks of antibiotics from the date of surgery with a tentative end date of June 21, 2016.Rifampin started today. 1 month of rifampin.He will follow up with Dr. Smith in 2 weeks at which time IV vancomycin may be prolonged depending on his clinical progression.Repeat blood cultures obtained on 06/08/2016. Awaiting final cultures to determine bacterial clearance. If repeat blood cultures are negative, he can be discharged home Qualifiers: Sepsis type: methicillin resistant Staphylococcus aureus Qualified Code(s) : A41.02 - Sepsis due to Methicillin resistant Staphylococcus aureus (4) Anemia Current Visit: Yes Status: Suspected Assessment and plan: We will check iron study, check B12, recheck albumin. Monitor H&H Qualifiers: Anemia type: unspecified type Qualified Code(s): D64.9 - Anemia, unspecified (5) Osteomyelitis Current Visit: Yes Status: Suspected Assessment and plan: MRI is indicative of R. 2nd metatarsal osteomyelitis. 2nd to MRSA, strep viridans, and enterococcus. COntinue vancomycin. Renal function is intact. Qualifiers: Osteomyelitis location: foot Laterality: right Chronicity: acute Qualified Code(s): M86.171 - Other acute osteomyelitis, right ankle and foot (6) Hypoalbuminemia Current Visit: Yes Status: Acute Assessment and plan: Check albumin and prealbumin nutritional consult dietary supplement counseling patient about nutrition discussed with staff about supplement with meals (7) Atelectasis Current Visit: Yes Status: Acute Assessment and plan: Consent Duonep aersol treatment - Time Spent With Patient Greater than 35 minutes - Subjective Interval history: Patient denies any fever or chills, patient denies any nausea or vomiting. Complaining of shortness of breath, dry cough. - Constitutional Vitals: Temp Pulse Resp BP Pulse Ox 99.1 F 82 16 155/82 94 L 06/11/16 10:45 06/11/16 10:45 06/11/16 10:45 06/11/16 10:45 06/11/16 10:45 General appearance: Present: mild distress, A&O X 3 - Head Head exam: Present: atraumatic, normocephalic - Neck Neck exam general surgery: Present: supple, trachea midline. Absent: lymphadenopathy - Respiratory Respiratory exam: Present: decreased breath sounds, prolonged expiratory phase. Absent: accessory muscle use, rales, rhonchi, wheezes - Cardiovascular Cardiovascular exam: Present: RRR, +S1, +S2. Absent: diastolic murmur, gallop, rubs, systolic murmur - GI/Abdominal GI/Abdominal exam: Present: normal bowel sounds, soft, no peritoneal signs. Absent: distended, tenderness - Extremities Exam Extremities exam: Present: warm. Absent: cyanotic, pedal edema Internal Medicine: Result - Labs CBC & Chem 7: 06/11/16 15:38 06/10/16 05:50 - ABG Interpretation ABG results: ABG ABG pH 7.50 pH Units (7.32-7.45) H 06/06/16 05:14 ABG pCO2 37 mmHg (35-45) 06/06/16 05:14 ABG pO2 99 mmHg (85-104) 06/06/16 05:14 ABG O2 Saturation 98 % (95-98) 06/06/16 05:14 PT/INR, D-dimer PT 16.9 Seconds (9.4-12.1) H 06/05/16 12:26 Consult Discharge Plan - Plan Referrals: NO,PCP [Primary Care Provider] -
[2016-06-11] MEDS ORDERED: Nitroglycerin 0.4 MG TAB.SUBL SL PRN (18:45)
[2016-06-11] MEDS ORDERED: Aspirin 81 MG TAB.CHEW PO SCH (19:00)
[2016-06-11] MEDS ORDERED: Aspirin 81 MG TAB.CHEW PO ONE (19:00)
[2016-06-11] MEDS ORDERED: cloNIDine HCl 0.1 MG TABLET PO ONE (23:51)
[2016-06-12] MEDS: *HR* Heparin 5,000 UNIT/ML VIAL SQ SCH ×2 (00:21→10:02)
[2016-06-12] MEDS: Vancomycin 1,250 MG in D5% in Water 250 ML IVPB SCH ×2 (00:22→13:29)
[2016-06-12] MEDS: *HR* HYDROcodone/Acet 7.5/325 mg TABLET PO PRN ×3 (00:22→16:41)
[2016-06-12] MEDS: Insulin LISPRO 300 UNITS/3 ML VIAL SQ SCH ×4 (07:36→21:54)
[2016-06-12] MEDS: Ipratropium/Albuterol Neb 3 ML IH PRN (08:05)
--- NOTE | 2016-06-12 08:37 | Internal Med Progress Note ---
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 need at least 2 weeks of antibiotics from the date of surgery with a tentative end date of June 21, 2016.Rifampin started today. 1 month of rifampin.He will follow up with Dr. Smith in 2 weeks at which time IV vancomycin may be prolonged depending on his clinical progression.Repeat blood cultures obtained on 06/08/2016. Awaiting final cultures to determine bacterial clearance. If repeat blood cultures are negative, he can be discharged home. So far preliminary report for blood culture is negative. If blood culture is positive again consider transesophageal echo Qualifiers: Sepsis type: methicillin resistant Staphylococcus aureus Qualified Code(s) : A41.02 - Sepsis due to Methicillin resistant Staphylococcus aureus (4) Anemia Current Visit: Yes Status: Suspected Assessment and plan: Anemia workup reviewed consistent with iron deficiency anemia will add iron therapy Qualifiers: Anemia type: iron deficiency Iron deficiency anemia type: unspecified iron deficiency Qualified Code(s): D50.9 - Iron deficiency anemia, unspecified (5) Osteomyelitis Current Visit: Yes Status: Suspected Assessment and plan: MRI is indicative of R. 2nd metatarsal osteomyelitis. 2nd to MRSA, strep viridans, and enterococcus. Continue vancomycin Qualifiers: Osteomyelitis location: foot Laterality: right Chronicity: acute Qualified Code(s): M86.171 - Other acute osteomyelitis, right ankle and foot (6) Hypoalbuminemia Current Visit: Yes Status: Acute Assessment and plan: Albumin and prealbumin are low nutritional consult on board .Continue dietary supplement (7) Atelectasis Current Visit: Yes Status: Acute Assessment and plan: Continue Duonep aersol treatment (8) Chest pain Current Visit: Yes Status: Acute Assessment and plan: His chest pain is reproducible. Currently continue aspirin 325 continue beta kayley. His elevated troponin possibly secondary to cardiomyopathy. I called cardiology awaiting for his call back. Recheck EKG. add Nitropaste. If not better consider nitro drip. Was possible costochondritis will add steroid, check chest x-ray rule out pneumonia and pruritus (9) Cardiomyopathy Current Visit: Yes Status: Acute Assessment and plan: Continue current medication. per Cardiology recommendation Qualifiers: Cardiomyopathy type: unspecified Qualified Code(s): I42.9 - Cardiomyopathy , unspecified - Time Spent With Patient Greater than 35 minutes - Subjective Interval history: Patient denies any fever or chills, patient denies any nausea or vomiting. Patient had complaint of left-sided chest pain last night resolved with 1 dose of morphine. Cardiac enzymes done by him two. Patient stated still has left sided chest pain pressure-like sensation 8 out of 10 in severity increases with taking deep breaths or lying on his left side - Constitutional Vitals: Temp Pulse Resp BP Pulse Ox 98.4 F 76 18 142/89 96 06/12/16 07:16 06/12/16 07:16 06/12/16 07:16 06/12/16 07:16 06/12/16 07:16 General appearance: Present: A&O X 3. Absent: no acute distress - Head Head exam: Present: atraumatic, normocephalic - Respiratory Respiratory exam: Present: chest wall tenderness (Left side chest wall tenderness), decreased breath sounds, prolonged expiratory phase. Absent: accessory muscle use, rales, rhonchi, wheezes - Cardiovascular Cardiovascular exam: Present: RRR, +S1, +S2. Absent: diastolic murmur, gallop, rubs, systolic murmur - GI/Abdominal GI/Abdominal exam: Present: normal bowel sounds, soft, no peritoneal signs. Absent: distended, tenderness - Extremities Exam Extremities exam: Present: warm (Intact dressing right feet. No evidence of cyanosis). Absent: calf tenderness, cyanotic, pedal edema Internal Medicine: Result - Labs CBC & Chem 7: 06/11/16 15:38 06/10/16 05:50 Labs: Short CBC 06/11/16 Range/Units 15:38 Hgb 10.4 L D (12.9-16.9) g/dL Hct 32.6 L (37.5-50.1) % Cardiac Enzymes 06/11/16 06/12/16 Range/Units 20:30 03:30 Troponin I 0.44 H* 0.52 H* (0-0.03) ng/mL Liver Function 06/11/16 Range/Units 15:38 Albumin 2.0 L (3.5-5.0) g/dL - ABG Interpretation ABG results: ABG ABG pH 7.50 pH Units (7.32-7.45) H 06/06/16 05:14 ABG pCO2 37 mmHg (35-45) 06/06/16 05:14 ABG pO2 99 mmHg (85-104) 06/06/16 05:14 ABG O2 Saturation 98 % (95-98) 06/06/16 05:14 PT/INR, D-dimer PT 16.9 Seconds (9.4-12.1) H 06/05/16 12:26 Consult Discharge Plan - Plan Referrals: NO,PCP [Primary Care Provider] -
[2016-06-12] MEDS ORDERED: MethylPREDNISolone 40 MG/ML VIAL IVP ONE (08:50)
[2016-06-12] MEDS ORDERED: Nitroglycerin 1 INCH/GM PACKET TP SCH (09:00)
[2016-06-12] MEDS ORDERED: *HR* Heparin 5,000 UNIT/ML VIAL IVP ONE (09:37)
[2016-06-12] MEDS ORDERED: *HR* Heparin 5,000 UNIT/ML VIAL IVP PRN ×2 (09:37)
[2016-06-12] MEDS: Insulin DETEMIR 100 UNIT/ML X5UNITS SQ SCH ×2 (09:41→21:47)
[2016-06-12] MEDS: Lactulose Oral Soln 20 GM/30 ML UDC PO SCH ×2 (09:41→21:46)
[2016-06-12] MEDS: Gabapentin 400 MG CAPSULE PO SCH ×3 (09:41→21:46)
[2016-06-12] MEDS: rifAMPin 150 MG CAPSULE PO SCH ×2 (09:41→16:41)
[2016-06-12] MEDS: Metoprolol XL (24 HR) Succ 25 MG TAB.ER.24H PO SCH (09:42)
[2016-06-12] MEDS ORDERED: Heparin 25,000 UNIT/500 ML D5W 25,000 UNIT/500 ML MLS IVC SCH (09:45)
[2016-06-12 10:11] LABS: Hematocrit 31.3 % (37.5-50.1); Hemoglobin 10.1 g/dL (12.9-16.9); Immature Platelets 3.5 % (1.1-6.1); Mean Corpuscular HGB Conc 32.3 g/dL (31.6-35.5); Mean Corpuscular Hemoglobin 30.1 pg (28.0-33.3); Mean Corpuscular Volume 93.2 fL (83.0-100.0); Mean Platelet Volume 10.3 fL (9.4-12.4); Red Blood Count 3.36 M/mcL (4.19-5.50); Red Cell Distribution Width 13.8 % (11.5-14.5)
[2016-06-12 10:17] LABS: INR 1.3; Prothrombin Time 14.3 Seconds (9.4-12.1)
[2016-06-12 10:19] LABS: Activated Partial Thrombo Time 43.4 Seconds (26.0-36.0)
[2016-06-12] MEDS: *HR* Morphine 2 MG/ML SYRINGE IVP PRN ×2 (13:28→21:48)
--- NOTE | 2016-06-12 13:58 | Cardiology Progress Note ---
Date of Encounter: 06/12/16 Time of Encounter: 13:46 Assessment and Plan (1) Acute systolic CHF (congestive heart failure) Current Visit: Yes Status: Acute TTE showed mildly reduced EF at 45%. Mild systolic dysfunction with regional wall motion abnormality. There is evidence of mild diastolic dysfunction. Mild mitral regurgitation, mild tricuspid regurgitation. There is mild pulmonary hypertension, RVSP was 48 mmHg. No identifiable valvular vegetations noted. reports he had a cardiomyopathy previously and underwent LHC. Records ordered from [facility]. CXR shows pulmonary edema. Add IV lasix. CHF education. Continue toprol and lisinopril. (2) Elevated troponin Current Visit: Yes Status: Acute Mild adynamic troponin elevation, 0.44,0.52,0.49 in the setting of sepsis, bacteremia, and CHF. Atypicalchest pain. LHC one year ago with no intervention. We will order records. Continue medical management with heparin gtt for now. Start asa 81 mg daily. Continue statin and beta-kayley. (3) Chest pain Current Visit: Yes Status: Acute Atypical chest pain. Describes pleuritic pain. Mild troponin elevation in the setting of CHF. We will order records from [facility]. Qualifiers: Chest pain type: chest pain on breathing Qualified Code(s): R07.1 - Chest pain on breathing (4) Osteomyelitis Current Visit: Yes Status: Suspected S/p I&D and amputation of right second toe. Foot cultures positive for MRSA. Final blood culture pending. Qualifiers: Osteomyelitis location: foot Laterality: right Chronicity: acute Qualified Code(s): M86.171 - Other acute osteomyelitis, right ankle and foot Discussion w patient/family: The assessment and plan as outlined above was discussed with the patient and/or family members who expressed understanding and agreement. All questions were answered. Thank you for involving us in the care of your patient. Please call with any questions. Subjective Principal diagnosis: Osteomyelitis/bacteremia, chest pain Interval history: Mr. Mcneil was originally admitted for osteomyelitis and sepsis. He was treated with I&D and amputation of his 2nd toe right foot and IV antibiotics. An echocardiogram was completed to r/o endocarditis. His EF was seen to be low, 45% , with wall motion abnormalities, no evidence of vegitation. Cardiology evaluated and signed off. Pt had history of cardiomyopathy and was not having symptoms at that time. Cardiology re-consulted today for chest pain and elevated troponin. He c/o left mid flank pain that increased with palpation. He is now pain free. His is at his bedside. She reports he had pain since Thanksgiving when he was put in the [facility] senior living. He reports not being treated well and not receiving his medications. His said she had to tell the nursing staff about his pain since he was hiding it from us. He underwent LHC for a "weakened heart" one year ago at the [facility]. He required no intervention at that time. His troponin was found to be elevated at 0.44, 0.49. Objective Vital Signs, Last 4 Hours Temp Pulse Resp BP Pulse Ox 06/12/16 11:17 98.3 F 87 16 154/98 95 General: Conversant, No Apparent Distress HEENT: Atraumatic, Normocephaly, Mucus Membranes Moist Neck: No JVD, Normal carotid pulses Cardiac: Reg Rate and Rhythm, Normal S1 and S2, No Murmur Lungs: Normal Breath Sounds, No Wheeze, Rales, Rhonchi Neuro: Alert and responsive, No focal deficits noted Abdomen: Soft, Non-Tender Skin: No rashes noted on visualized skin Musculoskeletal: Other (reproducible left flank pain.) Extremities: No Clubbing, No Cyanosis, No Edema, Normal Pulses Results 06/12/16 09:45 06/10/16 05:50 Lab Results 06/11/16 06/11/16 06/11/16 15:38 15:38 20:30 WBC Hgb 10.4 L D Hct 32.6 L Plt Count INR APTT Magnesium 1.7 Troponin I 0.44 H* 06/12/16 06/12/16 06/12/16 03:30 09:45 09:45 WBC 10.1 Hgb 10.1 L Hct 31.3 L Plt Count 281 INR 1.3 APTT 43.4 H Magnesium Troponin I 0.52 H* 06/12/16 09:52 WBC Hgb Hct Plt Count INR APTT Magnesium Troponin I 0.49 H* Foot X-Ray 06/05/16 11:50 IMPRESSION: 1. Ulceration along the plantar aspect of the right foot, near the metatarsal heads. No evidence of a fracture, retained radiopaque foreign body or osteomyelitis. D/ / 06/05/2016 12:11:19 Jose Rodriguez MD / Deandra Stern Interpreting Provider: Jose Rodriguez MD Foot MRI 06/05/16 15:09 IMPRESSION: 1. Soft tissue ulceration along the base of the 2nd toe with underlying marrow signal abnormality concerning for early osteomyelitis. 2. Diffuse soft tissue and muscular edema with subcutaneous fluid seen focally involving the 2nd toe compatible with blistering. Correlate clinically for cellulitis. D/ / Jesus Avila MD / Jesus Avila MD Interpreting Provider: Jesus Avila MD Chest X-Ray 06/12/16 08:51 IMPRESSION: 1. Pulmonary edema with bilateral pleural effusions and bibasilar atelectasis, left side greater than right, increased. D/ / Jose Rodriguez MD / Jose Rodriguez MD Interpreting Provider: Jose Rodriguez MD - Imaging and Cardiology Echo: report reviewed - EKG Interpretation EKG results cardiology: personally reviewed (SR with no ST changes) Consult Discharge Plan - Plan Referrals: NO,PCP [Primary Care Provider] -
--- NOTE | 2016-06-12 14:44 | Electrocardiograph Report ---
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
--- NOTE | 2016-06-12 15:23 | Podiatry Progress Note ---
Date of Encounter: 06/12/16 Time of Encounter: 15:00 - Assessment and Plan (1) Cellulitis Current Visit: Yes Status: Acute Continue current antibiotic therapy Patient will go home with 6 weeks IV antibiotic therapy Qualifiers: Site of cellulitis: extremity Site of cellulitis of extremity: lower extremity Laterality: right Qualified Code(s): L03.115 - Cellulitis of right lower limb (2) Foot ulcer Current Visit: Yes Status: Acute Assessed and examined Wound vac intact and running Nurse to secure dressing Continue MWF vac changes Discussed in length with patient that he would be going home on IV antibiotics PICC in place to RUE. Patient does not want to go home at this time Patient will be non weight bearing to right foot Call with any concerns, surgical site issues or worsening of infection. Qualifiers: Laterality: right Non-pressure ulcer stage: with necrosis of muscle Qualified Code(s): L97.513 - Non-pressure chronic ulcer of other part of right foot with necrosis of muscle (3) Diabetes mellitus Current Visit: Yes Status: Chronic Qualifiers: Diabetes mellitus type: type 2 Diabetes mellitus complication status: with skin complications Diabetes mellitus complication detail: with foot ulcer Diabetes mellitus jail insulin use: with advanced seal delivery system use Qualified Code(s) : E11.621 - Type 2 diabetes mellitus with foot ulcer; L97.509 - Non-pressure chronic ulcer of other part of unspecified foot with unspecified severity; Z79.4 - prison (current) use of insulin Subjective Principal diagnosis: Osteomyelitis/bacteremia, chest pain Interval history: Patient s/p Incision and drainage right foot. Amputation of the entire second digit right foot. Excision of ulceration plantar aspect right foot. Partial resection of second metatarsal, right foot. Bone biopsy. Flap advancement right foot. Application of wound VAC. Patient resting comfortably on arrival in bed. Patient denies any current issues or concerns. Patient denies any pain. Patient states he did have some chills during the night. Patient denies any sob, calf pain or chest pain. Patient requesting not to go home at this time, states he does not feel ready. Family at bedside. Wound vac intact and running, leak noted. Objective - Vital Signs Vital Signs: Vital Signs Temp Pulse Resp BP Pulse Ox 06/12/16 11:17 98.3 F 87 16 154/98 95 06/12/16 07:16 98.4 F 76 18 142/89 96 06/12/16 05:06 98.4 F 81 16 143/74 95 06/12/16 00:36 98.1 F 75 16 160/71 95 06/11/16 21:04 18 93 L 06/11/16 20:27 97.9 F 101 16 192/94 92 L Intake and Output 06/11/16 06/12/16 06/12/16 23:59 07:59 15:59 Intake Total 1270 / 1270 300 / 300 250 / 250 Output Total 1949 3050 / 3050 5 / 5 Balance -680 / -680 -2750 / -2750 245 / 245 Intake: IV Fluids 250 / 250 Vancocin 1,250 MG In 250 / 250 Dextrose 5% 250 ML @ 166. 67 mls/hr IVPB Q12H MALLIKA Rx#:[id number] Oral 1270 / 1270 300 / 300 Output: Urine 1949 1550 / 1550 Raysa 750 / 750 Output, Autotransfusion 750 / 750 Amount Wound Drainage 5 / 5 Right Foot 5 / 5 Other: # Voids 1 # Bowel Movements 1 Weight 85.729 kg Blood Glucose* 244 100 186 Patient Weight 06/12/16 23:59 Weight 85.729 kg - Exam Exam: The wound VAC is intact and there are no signs of dehiscence, nurse just placed new VAC dressing and there is noted to be a leak at this time, states she is awaiting new dressing from sterile and will secure dressing. Decreased erythema is noted. Pedal pulses palpable 1/4 bilaterally. Capillary fill time intact to the remaining digits. Sensation continues to be significantly decreased secondary to peripheral neuropathy. Patient denies any pain with palpation. Culture results are back which show resistance to multiple drugs with the exception of vancomycin. No cyanosis or pallor. BLE warm from toes to tibia. Sutures intact to plantar aspect of foot. Appears to be healing without issue. - Lab Result Diagrams: 06/12/16 09:45 06/10/16 05:50 Labs: Abnormal lab results RBC 3.36 M/mcL (4.19-5.50) L 06/12/16 09:45 Hgb 10.1 g/dL (12.9-16.9) L 06/12/16 09:45 Hct 31.3 % (37.5-50.1) L 06/12/16 09:45 Band Neutrophils % 8.0 % (0-4) H 06/06/16 06:01 ESR 107 mm/hr (0-10) H 06/08/16 04:24 PT 14.3 Seconds (9.4-12.1) H 06/12/16 09:45 APTT 43.4 Seconds (26.0-36.0) H 06/12/16 09:45 ABG pH 7.50 pH Units (7.32-7.45) H 06/06/16 05:14 ABG HCO3 28.9 mEQ/L (21-27) H 06/06/16 05:14 ABG Total CO2 30.0 mEq/L (20-26) H 06/06/16 05:14 ABG Base Excess 5.4 mEq/L (-2.0 to 3.0) H 06/06/16 05:14 Sodium 133 mEq/L (136-145) L 06/10/16 05:50 Glucose 256 mg/dL (70-99) H 06/10/16 05:50 POC Glucose 152 (58-89) H 06/11/16 11:33 Iron 32 mcg/dL (65-175) L 06/11/16 15:38 % Saturation 13 % (20-55) L 06/11/16 15:38 Total Bilirubin 1.3 mg/dL (0.2-1.2) H 06/06/16 06:01 AST 44 Units/L (5-34) H 06/06/16 06:01 Alkaline Phosphatase 154 Units/L (38-126) H 06/06/16 06:01 Troponin I 0.49 ng/mL (0-0.03) H* 06/12/16 09:52 C-Reactive Protein 178 mg/L (Less than 5) H 06/08/16 04:24 Albumin 2.0 g/dL (3.5-5.0) L 06/11/16 15:38 Globulin 5.3 g/dL (2.4-3.5) H 06/06/16 06:01 Albumin/Globulin Ratio 0.4 (1.1-2.2) L 06/06/16 06:01 Prealbumin 5.0 mg/dL (18.0-45.0) L 06/11/16 15:38 HDL Cholesterol 16 mg/dL (40-59) L 06/08/16 04:24 Cholesterol/HDL Ratio 6.1 (0-4.9) H 06/08/16 04:24 Vitamin B12 1056 pg/mL (213-816) H 06/11/16 15:38 Staphylococcus sp PCR DETECTED (Not Detect) A 06/05/16 12:29 Staph aureus (PCR) DETECTED (Not Detect) A 06/05/16 12:29 MRS (TEM-PCR) DETECTED (Not Detect) A 06/05/16 12:29 Consult Discharge Plan - Plan Referrals: NO,PCP [Primary Care Provider] -
[2016-06-12] MEDS: Furosemide 20 MG/2 ML VIAL IVP SCH ×2 (16:42→16:48)
[2016-06-12] MEDS: Aspirin 81 MG TAB.CHEW PO SCH (16:43)
[2016-06-12 17:47] LABS: Activated Partial Thrombo Time 242.9 Seconds (26.0-36.0)
[2016-06-12 17:55] LABS: Heparin anti-factor XA UFH 0.23 IU/mL (0.30-0.70)
[2016-06-12] MEDS: Tiotropium 18 MCG inhalation IH SCH (18:10)
[2016-06-13] MEDS: *HR* HYDROcodone/Acet 7.5/325 mg TABLET PO PRN ×2 (01:28→21:42)
[2016-06-13] MEDS: Vancomycin 1,250 MG in D5% in Water 250 ML IVPB SCH ×2 (01:28→12:12)
[2016-06-13] MEDS: *HR* Morphine 2 MG/ML SYRINGE IVP PRN ×2 (03:50→22:33)
[2016-06-13] MEDS: Insulin LISPRO 300 UNITS/3 ML VIAL SQ SCH ×4 (09:25→23:29)
[2016-06-13] MEDS: Insulin DETEMIR 100 UNIT/ML X5UNITS SQ SCH ×2 (09:26→21:32)
[2016-06-13] MEDS: Aspirin 81 MG TAB.CHEW PO SCH (09:26)
[2016-06-13] MEDS: Furosemide 20 MG/2 ML VIAL IVP SCH ×2 (09:26→16:59)
[2016-06-13] MEDS: Lactulose Oral Soln 20 GM/30 ML UDC PO SCH ×2 (09:26→21:32)
[2016-06-13] MEDS: Gabapentin 400 MG CAPSULE PO SCH ×3 (09:27→21:32)
[2016-06-13] MEDS: Metoprolol XL (24 HR) Succ 25 MG TAB.ER.24H PO SCH (09:27)
[2016-06-13] MEDS: rifAMPin 150 MG CAPSULE PO SCH ×2 (09:27→16:59)
--- NOTE | 2016-06-13 09:55 | Electrocardiograph Report ---
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
[2016-06-13] MEDS: Ipratropium/Albuterol Neb 3 ML IH PRN ×2 (10:32→18:55)
[2016-06-13] MEDS: Tiotropium 18 MCG inhalation IH SCH (10:32)
--- NOTE | 2016-06-13 13:12 | Cardiology Progress Note ---
Date of Encounter: 06/13/15 Time of Encounter: 13:10 Assessment and Plan (1) Elevated troponin Current Visit: Yes Status: Acute Mild adynamic troponin elevation, 0.44,0.52,0.49 in the setting of sepsis, bacteremia, and CHF. Atypical chest pain now resolved. Stress test 05/1016 at the [facility] was negative. EF mildly reduced, EF 45%, with WMA on echo. Not a good candidate for LHC at this time in the setting of bacteremia. Continue asa, statin, and beta-kayley. Out-pt f/u in one week with [facility]. OK to stop heparin gtt. Cardiology will sign off. Call with questions. (2) Acute systolic CHF (congestive heart failure) Current Visit: Yes Status: Acute TTE showed mildly reduced EF at 45%. Mild systolic dysfunction with regional wall motion abnormality. There is evidence of mild diastolic dysfunction. Mild mitral regurgitation, mild tricuspid regurgitation. There is mild pulmonary hypertension, RVSP was 48 mmHg. No identifiable valvular vegetations noted. reports he had a cardiomyopathy previously and underwent LHC. [facility] has no report of LHC or echo in the past 3- 4 years. Stress test report received and EF seen to be 63% at that time. Stress negative. CXR shows pulmonary edema on 06/12/15. IV lasix added. Continue IV lasix as tolerated. Net negative 4825. Symptoms improved. CHF education. Continue toprol and lisinopril. Check BMP. (3) Chest pain Current Visit: Yes Status: Acute Atypical chest pain. Describes pleuritic pain. Denies recurrent pain. Mild troponin elevation in the setting of CHF. See plan above. Qualifiers: Chest pain type: chest pain on breathing Qualified Code(s): R07.1 - Chest pain on breathing (4) Osteomyelitis Current Visit: Yes Status: Suspected S/p I&D and amputation of right second toe. Foot cultures positive for MRSA. Final blood culture pending. Qualifiers: Osteomyelitis location: foot Laterality: right Chronicity: acute Qualified Code(s): M86.171 - Other acute osteomyelitis, right ankle and foot Discussion w patient/family: The assessment and plan as outlined above was discussed with the patient and/or family members who expressed understanding and agreement. All questions were answered. Thank you for involving us in the care of your patient. Please call with any questions. Subjective Principal diagnosis: Osteomyelitis/bacteremia, chest pain Interval history: Mr. Mcneil was originally admitted for osteomyelitis and sepsis. He was treated with I&D and amputation of his 2nd toe right foot and IV antibiotics. An echocardiogram was completed to r/o endocarditis. His EF was seen to be low, 45% , with wall motion abnormalities, no evidence of vegitation. Cardiology evaluated and signed off. Pt had history of cardiomyopathy and was not having symptoms at that time. Cardiology re-consulted yesterday for chest pain and elevated troponin. He c/o left mid flank pain that increased with palpation. He is now pain free. Objective Vital Signs, Last 4 Hours Pulse Resp BP Pulse Ox 06/13/16 11:01 86 20 162/83 95 General: Conversant, No Apparent Distress HEENT: Atraumatic, Normocephaly, Mucus Membranes Moist Neck: No JVD, Normal carotid pulses Cardiac: Reg Rate and Rhythm, Normal S1 and S2, No Murmur Lungs: Normal Breath Sounds, No Wheeze, Rales, Rhonchi Neuro: Alert and responsive, No focal deficits noted Abdomen: Soft, Non-Tender Skin: No rashes noted on visualized skin Musculoskeletal: No Chest Wall Tenderness Extremities: No Clubbing, No Cyanosis, No Edema, Normal Pulses Results 06/12/16 09:45 06/10/16 05:50 Lab Results 06/12/16 06/13/16 06/13/16 17:00 01:35 08:59 APTT 242.9 H* D 56.4 H D 67.5 H - Imaging and Cardiology Stress Test: report reviewed (EF 63%n negative for ischemia.) - EKG Interpretation EKG results cardiology: personally reviewed Consult Discharge Plan - Plan Referrals: NO,PCP [Primary Care Provider] -
[2016-06-13 14:31] LABS: BUN/Creatinine Ratio 13 (6-26); Blood Urea Nitrogen 13 mg/dL (8-26); Calcium 8.9 mg/dL (8.6-10.8); Carbon Dioxide 30 mEq/L (19-29); Chloride 96 mEq/L (98-109); Glucose 182 mg/dL (70-99); Osmolality,Calculated 283 (280-300); Potassium 3.8 mEq/L (3.5-4.5); Sodium 134 mEq/L (136-145); eGFR For African Americans > 60 (> 60); eGFR For Non-African Americans > 60 (> 60)
[2016-06-13] MEDS: *HR* Heparin 5,000 UNIT/ML VIAL SQ SCH (16:59)
--- NOTE | 2016-06-13 18:12 | Internal Med Progress Note ---
Date of Encounter: 06/13/16 Time of Encounter: 18:05 - Assessment and plan (1) Cellulitis Current Visit: Yes Status: Acute Qualifiers: Site of cellulitis: extremity Site of cellulitis of extremity: lower extremity Laterality: right Qualified Code(s): L03.115 - Cellulitis of right lower limb (2) Foot ulcer Current Visit: Yes Status: Acute Assessment and plan: Continue current antibiotic , Podiatry on board. Blood culture finding and is negative. I do not think he will need EMELY. Possible discharge tomorrow . 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 need at least 2 weeks of antibiotics from the date of surgery with a tentative end date of June 21, 2016.Rifampin started today. 1 month of rifampin.He will follow up with Dr. Smith in 2 weeks at which time IV vancomycin may be prolonged depending on his clinical progression.Repeat blood cultures obtained on 06/08/2016. Awaiting final cultures to determine bacterial clearance. repeat blood cultures are negative . Qualifiers: Sepsis type: methicillin resistant Staphylococcus aureus Qualified Code(s) : A41.02 - Sepsis due to Methicillin resistant Staphylococcus aureus (4) Anemia Current Visit: Yes Status: Suspected Assessment and plan: Continue iron therapy Qualifiers: Anemia type: iron deficiency Iron deficiency anemia type: unspecified iron deficiency Qualified Code(s): D50.9 - Iron deficiency anemia, unspecified (5) Osteomyelitis Current Visit: Yes Status: Suspected Assessment and plan: MRI is indicative of R. 2nd metatarsal osteomyelitis. 2nd to MRSA, strep viridans, and enterococcus. Continue vancomycin. We discussed with podiatry tomorrow about discharged Qualifiers: Osteomyelitis location: foot Laterality: right Chronicity: acute Qualified Code(s): M86.171 - Other acute osteomyelitis, right ankle and foot (6) Hypoalbuminemia Current Visit: Yes Status: Acute (7) Atelectasis Current Visit: Yes Status: Acute (8) Chest pain Current Visit: Yes Status: Acute Assessment and plan: Continue current medication need to follow up as an outpatient was cardiology. Appreciate cardiology input Qualifiers: Chest pain type: chest pain on breathing Qualified Code(s): R07.1 - Chest pain on breathing (9) Cardiomyopathy Current Visit: Yes Status: Acute Assessment and plan: Continue current medication. per Cardiology recommendation. May change Lasix to oral tomorrow morning Qualifiers: Cardiomyopathy type: unspecified Qualified Code(s): I42.9 - Cardiomyopathy , unspecified - Time Spent With Patient 25 - 35 minutes (Possible discharge tomorrow morning on oral Lasix IV antibiotic ) - Subjective Interval history: Patient denies any chest pain ,shortness of breath is improving - Constitutional Vitals: Temp Pulse Resp BP Pulse Ox 98 F 90 18 155/96 94 L 06/13/16 17:07 06/13/16 17:07 06/13/16 17:07 06/13/16 17:07 06/13/16 17:07 General appearance: Absent: no acute distress - Head Head exam: Present: atraumatic, normocephalic - Eye Eye exam: Present: conjuntiva pink, sclera anicteric - Neck Neck exam general surgery: Present: supple, trachea midline. Absent: lymphadenopathy - Respiratory Respiratory exam: Present: decreased breath sounds. Absent: accessory muscle use, rales, rhonchi, wheezes - Cardiovascular Cardiovascular exam: Present: RRR, +S1, +S2. Absent: gallop, rubs - GI/Abdominal GI/Abdominal exam: Present: normal bowel sounds, soft, no peritoneal signs. Absent: distended, tenderness - Extremities Exam Extremities exam: Present: pedal edema, warm, radial pulses palpable and symetrical. Absent: calf tenderness, cyanotic - Neurological Exam Neurological exam: Present: CN II-XII intact, no focal deficits. Absent: pronater drift, facial droop, speech deficit - Skin Skin exam: Present: dry Internal Medicine: Result - Labs CBC & Chem 7: 06/12/16 09:45 06/13/16 14:17 Labs: BMP 06/13/16 14:17 Sodium 134 L Potassium 3.8 Chloride 96 L Carbon Dioxide 30 H BUN 13 Creatinine 0.97 Glucose 182 H Calcium 8.9 - ABG Interpretation ABG results: ABG ABG pH 7.50 pH Units (7.32-7.45) H 06/06/16 05:14 ABG pCO2 37 mmHg (35-45) 06/06/16 05:14 ABG pO2 99 mmHg (85-104) 06/06/16 05:14 ABG O2 Saturation 98 % (95-98) 06/06/16 05:14 PT/INR, D-dimer PT 14.3 Seconds (9.4-12.1) H 06/12/16 09:45 Consult Discharge Plan - Plan Referrals: NO,PCP [Primary Care Provider] -
[2016-06-14] MEDS: Vancomycin 1,250 MG in D5% in Water 250 ML IVPB SCH ×2 (01:01→13:00)
[2016-06-14] MEDS: *HR* Morphine 2 MG/ML SYRINGE IVP PRN ×3 (04:35→20:32)
[2016-06-14] MEDS: *HR* Heparin 5,000 UNIT/ML VIAL SQ SCH ×2 (06:46→17:16)
[2016-06-14] MEDS: Tiotropium 18 MCG inhalation IH SCH (08:21)
[2016-06-14] MEDS: Insulin DETEMIR 100 UNIT/ML X5UNITS SQ SCH ×2 (09:32→20:32)
[2016-06-14] MEDS: Gabapentin 400 MG CAPSULE PO SCH ×3 (09:33→20:32)
[2016-06-14] MEDS: rifAMPin 150 MG CAPSULE PO SCH ×2 (09:33→17:16)
[2016-06-14] MEDS: Furosemide 20 MG/2 ML VIAL IVP SCH ×2 (09:33→17:16)
[2016-06-14] MEDS: Aspirin 81 MG TAB.CHEW PO SCH (09:33)
[2016-06-14] MEDS: Lactulose Oral Soln 20 GM/30 ML UDC PO SCH ×2 (09:35→20:29)
[2016-06-14] MEDS: Metoprolol XL (24 HR) Succ 25 MG TAB.ER.24H PO SCH (09:35)
[2016-06-14] MEDS: Insulin LISPRO 300 UNITS/3 ML VIAL SQ SCH ×4 (09:36→22:10)
--- NOTE | 2016-06-14 19:55 | Internal Med Progress Note ---
Date of Encounter: 06/14/16 Time of Encounter: 14:00 - Assessment and plan (1) Cellulitis Current Visit: Yes Status: Acute Qualifiers: Site of cellulitis: extremity Site of cellulitis of extremity: lower extremity Laterality: right Qualified Code(s): L03.115 - Cellulitis of right lower limb (2) Foot ulcer Current Visit: Yes Status: Acute Assessment and plan: Continue current antibiotic , Podiatry on board. repeated Blood culture reviewed and is negative. I do not think he will need EMELY. Possible discharge to Rehab , Discussed with staff , still awaiting placement . 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 need at least 2 weeks of antibiotics from the date of surgery with a tentative end date of June 21, 2016.Rifampin started today. 1 month of rifampin.He will follow up with Dr. Smith in 2 weeks at which time IV vancomycin may be prolonged depending on his clinical progression.Repeat blood cultures obtained on 06/08/2016 negative . awaiting Rehab . No family social support at all Qualifiers: Sepsis type: methicillin resistant Staphylococcus aureus Qualified Code(s) : A41.02 - Sepsis due to Methicillin resistant Staphylococcus aureus (4) Anemia Current Visit: Yes Status: Suspected Assessment and plan: Monitor H/H Qualifiers: Anemia type: iron deficiency Iron deficiency anemia type: unspecified iron deficiency Qualified Code(s): D50.9 - Iron deficiency anemia, unspecified (5) Osteomyelitis Current Visit: Yes Status: Suspected Qualifiers: Osteomyelitis location: foot Laterality: right Chronicity: acute Qualified Code(s): M86.171 - Other acute osteomyelitis, right ankle and foot (6) Hypoalbuminemia Current Visit: Yes Status: Acute Assessment and plan: Counselling again on high protien diet (7) Atelectasis Current Visit: Yes Status: Acute (8) Cardiomyopathy Current Visit: Yes Status: Acute Assessment and plan: Stable Qualifiers: Cardiomyopathy type: unspecified Qualified Code(s): I42.9 - Cardiomyopathy , unspecified - Subjective Interval history: Patient denies any chest pain . C/o generalized weakness, Poor social support . discussed with staff no home, need agressive wound care IV antibiotics . - Constitutional Vitals: Temp Pulse Resp BP Pulse Ox 97.5 F L 92 16 149/88 95 06/14/16 16:57 06/14/16 16:57 06/14/16 16:57 06/14/16 16:57 06/14/16 16:57 General appearance: Absent: no acute distress - Head Head exam: Present: atraumatic, normocephalic - Respiratory Respiratory exam: Present: CTAB. Absent: accessory muscle use, rales, rhonchi, wheezes - GI/Abdominal GI/Abdominal exam: Present: normal bowel sounds, soft, no peritoneal signs. Absent: distended, tenderness Internal Medicine: Result - Labs CBC & Chem 7: 06/12/16 09:45 06/13/16 14:17 - ABG Interpretation ABG results: ABG ABG pH 7.50 pH Units (7.32-7.45) H 06/06/16 05:14 ABG pCO2 37 mmHg (35-45) 06/06/16 05:14 ABG pO2 99 mmHg (85-104) 06/06/16 05:14 ABG O2 Saturation 98 % (95-98) 06/06/16 05:14 PT/INR, D-dimer PT 14.3 Seconds (9.4-12.1) H 06/12/16 09:45 Consult Discharge Plan - Plan Instructions: Heart Failure (DC), Chest Pain (DC), Pacemaker (DC), Methicillin Resistant Staphylococcus Aureus (DC), Methicillin Resistant Staphylococcus Aureus (GEN), Diabetes Mellitus Type 2 in Adults (DC), Chronic Wound Care (DC), Chronic Wound Care (GEN), Negative Pressure Wound Therapy (DC), Negative Pressure Wound Therapy (GEN) Referrals: NO,PCP [Primary Care Provider] -
[2016-06-15] MEDS: Vancomycin 1,250 MG in D5% in Water 250 ML IVPB SCH ×2 (00:57→12:04)
[2016-06-15] MEDS: *HR* Morphine 2 MG/ML SYRINGE IVP PRN ×3 (01:05→21:40)
[2016-06-15] MEDS: *HR* Heparin 5,000 UNIT/ML VIAL SQ SCH ×2 (05:48→16:49)
[2016-06-15] MEDS: Gabapentin 400 MG CAPSULE PO SCH ×3 (08:06→21:40)
[2016-06-15] MEDS: Metoprolol XL (24 HR) Succ 25 MG TAB.ER.24H PO SCH (08:06)
[2016-06-15] MEDS: Furosemide 20 MG/2 ML VIAL IVP SCH ×2 (08:06→16:49)
[2016-06-15] MEDS: Lactulose Oral Soln 20 GM/30 ML UDC PO SCH ×2 (08:07→21:40)
[2016-06-15] MEDS: Insulin DETEMIR 100 UNIT/ML X5UNITS SQ SCH (08:07)
[2016-06-15] MEDS: Aspirin 81 MG TAB.CHEW PO SCH (08:07)
[2016-06-15] MEDS: rifAMPin 150 MG CAPSULE PO SCH ×2 (08:07→16:50)
[2016-06-15] MEDS: Insulin LISPRO 300 UNITS/3 ML VIAL SQ SCH ×4 (08:07→21:39)
[2016-06-15] MEDS: Tiotropium 18 MCG inhalation IH SCH (10:58)
[2016-06-15] MEDS: Acetaminophen 325 MG TABLET PO PRN (14:10)
[2016-06-15] MEDS: *HR* HYDROcodone/Acet 7.5/325 mg TABLET PO PRN (16:50)
--- NOTE | 2016-06-15 17:51 | Internal Med Progress Note ---
Date of Encounter: 06/15/16 Time of Encounter: 03:00 - Assessment and plan (1) Cellulitis Current Visit: Yes Status: Acute Qualifiers: Site of cellulitis: extremity Site of cellulitis of extremity: lower extremity Laterality: right Qualified Code(s): L03.115 - Cellulitis of right lower limb (2) Foot ulcer Current Visit: Yes Status: Acute Assessment and plan: Continue current antibiotic , repeated Blood culture reviewed and is negative. Possible discharge to Rehab , Discussed with staff , still awaiting placement . 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 need at least 2 weeks of antibiotics from the date of surgery with a tentative end date of June 21, 2016.Rifampin started today. 1 month of rifampin.He will follow up with Dr. Smith in 2 weeks at which time IV vancomycin may be prolonged depending on his clinical progression.Repeat blood cultures obtained on 06/08/2016 negative . awaiting Rehab . No family social support at all . Reported to social work lecturer patient is ready for rehabilitation Qualifiers: Sepsis type: methicillin resistant Staphylococcus aureus Qualified Code(s) : A41.02 - Sepsis due to Methicillin resistant Staphylococcus aureus (4) Anemia Current Visit: Yes Status: Suspected Qualifiers: Anemia type: iron deficiency Iron deficiency anemia type: unspecified iron deficiency Qualified Code(s): D50.9 - Iron deficiency anemia, unspecified (5) Osteomyelitis Current Visit: Yes Status: Suspected Assessment and plan: MRI is indicative of R. 2nd metatarsal osteomyelitis. 2nd to MRSA, strep viridans, and enterococcus. Continue vancomycin. Need long-term antibiotics as discussed above Qualifiers: Osteomyelitis location: foot Laterality: right Chronicity: acute Qualified Code(s): M86.171 - Other acute osteomyelitis, right ankle and foot (6) Hypoalbuminemia Current Visit: Yes Status: Acute (7) Atelectasis Current Visit: Yes Status: Acute Assessment and plan: Improving continue aerosol treatment and deep breathing (8) Cardiomyopathy Current Visit: Yes Status: Acute Assessment and plan: Stable Qualifiers: Cardiomyopathy type: unspecified Qualified Code(s): I42.9 - Cardiomyopathy , unspecified (9) Diabetes mellitus Current Visit: Yes Status: Chronic Assessment and plan: Blood glucose UNcontrolled. increase current insulin regimen. ACHS accuchecks. Status post amputation of right second toe and part of the second metatarsal.Wound VAC in place that needs to be changed 3 times a week. Outpatient follow-up with podiatry in 2 weeks of discharge. Qualifiers: Diabetes mellitus type: type 2 Diabetes mellitus complication status: with skin complications Diabetes mellitus complication detail: with foot ulcer Diabetes mellitus termination clerk insulin use: with termination clerk use Qualified Code(s) : E11.621 - Type 2 diabetes mellitus with foot ulcer; L97.509 - Non-pressure chronic ulcer of other part of unspecified foot with unspecified severity; Z79.4 - termination clerk (current) use of insulin - Subjective Interval history: Patient denies any chest pain . C/o generalized weakness, no home to go to after discharge. need agressive wound care IV antibiotics . Patient still complain of right feet pain controlled with current pain medication. Discussed with the RN no change in drainage with changing wound VAC - Constitutional Vitals: Temp Pulse Resp BP Pulse Ox 98.1 F 79 16 163/88 98 06/15/16 16:44 06/15/16 16:44 06/15/16 16:44 06/15/16 16:44 06/15/16 12:12 General appearance: Absent: no acute distress - Respiratory Respiratory exam: Present: CTAB. Absent: accessory muscle use, rales, rhonchi, wheezes - Cardiovascular Cardiovascular exam: Present: RRR, +S1, +S2. Absent: diastolic murmur, gallop, rubs, systolic murmur - GI/Abdominal GI/Abdominal exam: Present: normal bowel sounds, soft, no peritoneal signs. Absent: distended, tenderness - Extremities Exam Extremities exam: Present: warm. Absent: calf tenderness, cyanotic Internal Medicine: Result - Labs CBC & Chem 7: 06/12/16 09:45 06/13/16 14:17 - ABG Interpretation ABG results: ABG ABG pH 7.50 pH Units (7.32-7.45) H 06/06/16 05:14 ABG pCO2 37 mmHg (35-45) 06/06/16 05:14 ABG pO2 99 mmHg (85-104) 06/06/16 05:14 ABG O2 Saturation 98 % (95-98) 06/06/16 05:14 PT/INR, D-dimer PT 14.3 Seconds (9.4-12.1) H 06/12/16 09:45 Consult Discharge Plan - Plan Instructions: Heart Failure (DC), Chest Pain (DC), Pacemaker (DC), Methicillin Resistant Staphylococcus Aureus (DC), Methicillin Resistant Staphylococcus Aureus (GEN), Diabetes Mellitus Type 2 in Adults (DC), Chronic Wound Care (DC), Chronic Wound Care (GEN), Negative Pressure Wound Therapy (DC), Negative Pressure Wound Therapy (GEN) Referrals: NO,PCP [Primary Care Provider] -
[2016-06-15] MEDS ORDERED: Insulin DETEMIR 100 UNIT/ML X5UNITS SQ SCH (17:58)
[2016-06-16] MEDS: Vancomycin 1,250 MG in D5% in Water 250 ML IVPB SCH ×2 (00:16→15:47)
[2016-06-16] MEDS: *HR* Heparin 5,000 UNIT/ML VIAL SQ SCH ×2 (05:22→18:16)
[2016-06-16] MEDS: *HR* Morphine 2 MG/ML SYRINGE IVP PRN ×3 (05:22→21:41)
[2016-06-16] MEDS: Tiotropium 18 MCG inhalation IH SCH (07:50)
[2016-06-16] MEDS: *HR* HYDROcodone/Acet 7.5/325 mg TABLET PO PRN (08:32)
[2016-06-16] MEDS: Metoprolol XL (24 HR) Succ 25 MG TAB.ER.24H PO SCH (08:33)
[2016-06-16] MEDS: Lactulose Oral Soln 20 GM/30 ML UDC PO SCH ×2 (08:33→21:41)
[2016-06-16] MEDS: Furosemide 20 MG/2 ML VIAL IVP SCH ×2 (08:33→15:45)
[2016-06-16] MEDS: Aspirin 81 MG TAB.CHEW PO SCH (08:33)
[2016-06-16] MEDS: Gabapentin 400 MG CAPSULE PO SCH ×3 (08:34→21:42)
[2016-06-16] MEDS: Insulin DETEMIR 100 UNIT/ML X5UNITS SQ SCH ×2 (08:34→21:42)
[2016-06-16] MEDS: rifAMPin 150 MG CAPSULE PO SCH ×2 (08:34→15:45)
[2016-06-16] MEDS: Insulin LISPRO 300 UNITS/3 ML VIAL SQ SCH ×5 (08:35→21:39)
--- NOTE | 2016-06-16 13:59 | Internal Med Progress Note ---
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 need at least 2 weeks of antibiotics from the date of surgery with a tentative end date of June 21, 2016. Rifampin started on 06/10/2016. 1 month of rifampin. He will follow up with Dr. Smith in 2 weeks at which time IV vancomycin may be prolonged depending on his clinical progression. Repeat blood cultures obtained on 06/08/2016 negative . awaiting Rehab . No family social support at all . Reported to social contact worker patient is ready for rehabilitation Was rejected by the [facility] rehabilitation Anaerobic gram-negative rods growing on culture as well consider adding clindamycin if worse Qualifiers: Sepsis type: methicillin resistant Staphylococcus aureus Qualified Code(s) : A41.02 - Sepsis due to Methicillin resistant Staphylococcus aureus (2) Cardiomyopathy Current Visit: Yes Status: Acute Assessment and plan: Stable ejection fraction of 45% with diastolic dysfunction Stable no systolic CHF exacerbation at the moment Continue metoprolol and aspirin Qualifiers: Cardiomyopathy type: unspecified Qualified Code(s): I42.9 - Cardiomyopathy , unspecified (3) Elevated troponin Current Visit: Yes Status: Acute Assessment and plan: Elevated troponins (adynamic) Secondary to demand ischemia Cardiology signed off (4) Diabetes mellitus Current Visit: Yes Status: Chronic Assessment and plan: Blood glucose UNcontrolled. Modifydoses to Levemir 25 units twice a day and start lispro 12 units 3 times a day plus sliding scale Outpatient follow-up with podiatry in 2 weeks of discharge. Qualifiers: Diabetes mellitus type: type 2 Diabetes mellitus complication status: with skin complications Diabetes mellitus complication detail: with foot ulcer Diabetes mellitus bed bug exterminator insulin use: with bed bug exterminator use Qualified Code(s) : E11.621 - Type 2 diabetes mellitus with foot ulcer; L97.509 - Non-pressure chronic ulcer of other part of unspecified foot with unspecified severity; Z79.4 - bed bug exterminator (current) use of insulin (5) HTN (hypertension) Current Visit: Yes Status: Chronic Assessment and plan: BP is under control. Continue current medications. Qualifiers: Hypertension type: essential hypertension Qualified Code(s): I10 - Essential (primary) hypertension (6) Ischemic cardiomyopathy Current Visit: Yes Status: Chronic Assessment and plan: As above (7) Osteomyelitis Current Visit: Yes Status: Suspected Assessment and plan: MRI is indicative of R. 2nd metatarsal osteomyelitis. 2nd to MRSA, strep viridans, and enterococcus. Continue vancomycin. Need long-term antibiotics as discussed above High risk due to severe infection Qualifiers: Osteomyelitis location: foot Laterality: right Chronicity: acute Qualified Code(s): M86.171 - Other acute osteomyelitis, right ankle and foot - Time Spent With Patient Greater than 35 minutes - Subjective Interval history: Complaining of some pain in the right foot, denies any shortness of breath, no abdominal pain, no fevers, no dysuria, no diarrhea. No chest pain - Constitutional Vitals: Temp Pulse Resp BP Pulse Ox 98.7 F 82 16 145/79 98 06/16/16 11:39 06/16/16 11:39 06/16/16 11:39 06/16/16 11:39 06/16/16 11:39 General appearance: Absent: no acute distress - Head Head exam: Present: atraumatic, normocephalic - Eye Eye exam: Present: PERRL, conjuntiva pink, sclera anicteric Pupils: Present: PERRL - Neck Neck exam general surgery: Present: supple, trachea midline. Absent: lymphadenopathy - Respiratory Respiratory exam: Present: decreased breath sounds, CTAB. Absent: accessory muscle use, rales, rhonchi, wheezes - Cardiovascular Cardiovascular exam: Present: RRR, +S1, +S2. Absent: diastolic murmur, gallop, rubs, systolic murmur - GI/Abdominal GI/Abdominal exam: Present: normal bowel sounds, soft, no peritoneal signs. Absent: distended, tenderness - Extremities Exam Extremities exam: Present: warm, radial pulses palpable and symetrical. Absent : calf tenderness, cyanotic, pedal edema Additional comments: Right second toe amputation wound covered by wound VAC - Neurological Exam Neurological exam: Present: CN II-XII intact, oriented X3, no focal deficits. Absent: pronater drift, facial droop, speech deficit - Skin Skin exam: Present: dry, intact Internal Medicine: Result - Labs CBC & Chem 7: 06/12/16 09:45 06/13/16 14:17 - ABG Interpretation ABG results: ABG ABG pH 7.50 pH Units (7.32-7.45) H 06/06/16 05:14 ABG pCO2 37 mmHg (35-45) 06/06/16 05:14 ABG pO2 99 mmHg (85-104) 06/06/16 05:14 ABG O2 Saturation 98 % (95-98) 06/06/16 05:14 PT/INR, D-dimer PT 14.3 Seconds (9.4-12.1) H 06/12/16 09:45 Consult Discharge Plan - Plan Instructions: Heart Failure (DC), Chest Pain (DC), Pacemaker (DC), Methicillin Resistant Staphylococcus Aureus (DC), Methicillin Resistant Staphylococcus Aureus (GEN), Diabetes Mellitus Type 2 in Adults (DC), Chronic Wound Care (DC), Chronic Wound Care (GEN), Negative Pressure Wound Therapy (DC), Negative Pressure Wound Therapy (GEN) Referrals: NO,PCP [Primary Care Provider] -
[2016-06-17] MEDS: Vancomycin 1,250 MG in D5% in Water 250 ML IVPB SCH ×3 (00:12→22:48)
[2016-06-17] MEDS: *HR* Morphine 2 MG/ML SYRINGE IVP PRN ×3 (03:25→21:02)
[2016-06-17 04:23] LABS: BUN/Creatinine Ratio 24 (6-26); Blood Urea Nitrogen 25 mg/dL (8-26); Calcium 8.7 mg/dL (8.6-10.8); Carbon Dioxide 27 mEq/L (19-29); Chloride 94 mEq/L (98-109); Glucose 381 mg/dL (70-99); Osmolality,Calculated 284 (280-300); Potassium 4.4 mEq/L (3.5-4.5); Sodium 127 mEq/L (136-145); eGFR For African Americans > 60 (> 60); eGFR For Non-African Americans > 60 (> 60)
[2016-06-17 04:24] LABS: BUN/Creatinine Ratio 24 (6-26); Blood Urea Nitrogen 25 mg/dL (8-26); eGFR For African Americans > 60 (> 60); eGFR For Non-African Americans > 60 (> 60)
[2016-06-17] MEDS: *HR* Heparin 5,000 UNIT/ML VIAL SQ SCH ×2 (05:59→17:26)
[2016-06-17] MEDS: Furosemide 20 MG/2 ML VIAL IVP SCH ×2 (08:38→17:24)
[2016-06-17] MEDS: rifAMPin 150 MG CAPSULE PO SCH ×2 (08:38→17:24)
[2016-06-17] MEDS: Metoprolol XL (24 HR) Succ 25 MG TAB.ER.24H PO SCH (08:38)
[2016-06-17] MEDS: Gabapentin 400 MG CAPSULE PO SCH ×3 (08:39→21:02)
[2016-06-17] MEDS: Insulin LISPRO 300 UNITS/3 ML VIAL SQ SCH ×7 (08:39→22:03)
[2016-06-17] MEDS: Aspirin 81 MG TAB.CHEW PO SCH (08:39)
[2016-06-17] MEDS: Insulin DETEMIR 100 UNIT/ML X5UNITS SQ SCH ×2 (08:39→21:02)
[2016-06-17] MEDS: Lactulose Oral Soln 20 GM/30 ML UDC PO SCH ×2 (08:39→21:02)
[2016-06-17] MEDS: Tiotropium 18 MCG inhalation IH SCH (10:49)
--- NOTE | 2016-06-17 16:10 | Internal Med Progress Note ---
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 need at least 2 weeks of antibiotics from the date of surgery with a tentative end date of June 21, 2016. Rifampin started on 06/10/2016. 1 month of rifampin. start metronidazole as one of the cultures shows growthof anaerobic gram- negative rods He will follow up with Dr. Smith in 2 weeks at which time IV vancomycin may be prolonged depending on his clinical progression. Repeat blood cultures obtained on 06/08/2016 negative . awaiting Rehab . No family social support at all . Reported to long term care social worker patient is ready for rehabilitation Was rejected by the [place] rehabilitation Qualifiers: Sepsis type: methicillin resistant Staphylococcus aureus Qualified Code(s) : A41.02 - Sepsis due to Methicillin resistant Staphylococcus aureus (2) Cardiomyopathy Current Visit: Yes Status: Acute Assessment and plan: Stable ejection fraction of 45% with diastolic dysfunction Stable no systolic CHF exacerbation at the moment Continue metoprolol and aspirin Qualifiers: Cardiomyopathy type: unspecified Qualified Code(s): I42.9 - Cardiomyopathy , unspecified (3) Elevated troponin Current Visit: Yes Status: Acute Assessment and plan: Elevated troponins (adynamic) Secondary to demand ischemia Cardiology signed off (4) Diabetes mellitus Current Visit: Yes Status: Chronic Assessment and plan: Blood glucose UNcontrolled. Modified doses to Levemir 25 units twice a day and increase lispro up to 15 units 3 times a day plus sliding scale Outpatient follow-up with podiatry in 2 weeks of discharge. 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 Continue current medications. Qualifiers: Hypertension type: essential hypertension Qualified Code(s): I10 - Essential (primary) hypertension (6) Ischemic cardiomyopathy Current Visit: Yes Status: Chronic Assessment and plan: As above (7) Osteomyelitis Current Visit: Yes Status: Suspected Assessment and plan: MRI is indicative of R. 2nd metatarsal osteomyelitis. 2nd to MRSA, strep viridans, and enterococcus. Continue vancomycin. Need long-term antibiotics as discussed above High risk due to severe infection Qualifiers: Osteomyelitis location: foot Laterality: right Chronicity: acute Qualified Code(s): M86.171 - Other acute osteomyelitis, right ankle and foot - Time Spent With Patient Greater than 35 minutes - Subjective Interval history: Complaining of increased pain in the right foot 8 out of 10 in intensity, denies any shortness of breath, no abdominal pain, no fevers, no dysuria, no diarrhea. No chest pain - Constitutional Vitals: Temp Pulse Resp BP Pulse Ox 98.4 F 86 16 122/65 95 06/17/16 07:51 06/17/16 07:51 06/17/16 10:52 06/17/16 07:51 06/17/16 10:52 General appearance: Present: A&O X 3. Absent: no acute distress - Head Head exam: Present: atraumatic, normocephalic - Eye Eye exam: Present: PERRL, conjuntiva pink, sclera anicteric Pupils: Present: PERRL - Neck Neck exam general surgery: Present: supple, trachea midline. Absent: lymphadenopathy - Respiratory Respiratory exam: Present: CTAB. Absent: accessory muscle use, rales, rhonchi, wheezes - Cardiovascular Cardiovascular exam: Present: RRR, +S1, +S2. Absent: diastolic murmur, gallop, rubs, systolic murmur - GI/Abdominal GI/Abdominal exam: Present: normal bowel sounds, soft, no peritoneal signs. Absent: distended, tenderness - Extremities Exam Extremities exam: Present: warm, radial pulses palpable and symetrical. Absent : calf tenderness, cyanotic, pedal edema Additional comments: Right second toe amputation wound covered by wound VAC ound appears necrotic, is more inflamed - Neurological Exam Neurological exam: Present: CN II-XII intact, oriented X3, no focal deficits. Absent: pronater drift, facial droop, speech deficit - Skin Skin exam: Present: dry, intact Internal Medicine: Result - Labs CBC & Chem 7: 06/12/16 09:45 06/17/16 03:40 Labs: BMP 06/17/16 06/17/16 03:40 03:40 Sodium 127 L Potassium 4.4 Chloride 94 L Carbon Dioxide 27 BUN 25 25 Creatinine 1.06 1.05 Glucose 381 H Calcium 8.7 - ABG Interpretation ABG results: ABG ABG pH 7.50 pH Units (7.32-7.45) H 06/06/16 05:14 ABG pCO2 37 mmHg (35-45) 06/06/16 05:14 ABG pO2 99 mmHg (85-104) 06/06/16 05:14 ABG O2 Saturation 98 % (95-98) 06/06/16 05:14 PT/INR, D-dimer PT 14.3 Seconds (9.4-12.1) H 06/12/16 09:45 Consult Discharge Plan - Plan Instructions: Heart Failure (DC), Chest Pain (DC), Pacemaker (DC), Methicillin Resistant Staphylococcus Aureus (DC), Methicillin Resistant Staphylococcus Aureus (GEN), Diabetes Mellitus Type 2 in Adults (DC), Chronic Wound Care (DC), Chronic Wound Care (GEN), Negative Pressure Wound Therapy (DC), Negative Pressure Wound Therapy (GEN) Referrals: NO,PCP [Primary Care Provider] -
[2016-06-17] MEDS: MetroNIDAZOLE 500 MG/100 ML 500 MG/100 ML BAG IVPB SCH ×2 (17:21→22:49)
[2016-06-17] MEDS: *HR* HYDROcodone/Acet 7.5/325 mg TABLET PO PRN (17:24)
[2016-06-18] MEDS: *HR* HYDROcodone/Acet 7.5/325 mg TABLET PO PRN ×3 (00:49→21:11)
[2016-06-18] MEDS: *HR* Heparin 5,000 UNIT/ML VIAL SQ SCH ×2 (04:46→17:01)
[2016-06-18 05:00] LABS: Hematocrit 31.7 % (37.5-50.1); Hemoglobin 10.5 g/dL (12.9-16.9); Mean Corpuscular HGB Conc 33.1 g/dL (31.6-35.5); Mean Corpuscular Hemoglobin 30.3 pg (28.0-33.3); Mean Corpuscular Volume 91.4 fL (83.0-100.0); Platelet Count 285 K/mcL (140-400); Red Blood Count 3.47 M/mcL (4.19-5.50); Red Cell Distribution Width 13.6 % (11.5-14.5)
[2016-06-18 05:08] LABS: BUN/Creatinine Ratio 25 (6-26); Blood Urea Nitrogen 20 mg/dL (8-26); Calcium 9.1 mg/dL (8.6-10.8); Carbon Dioxide 26 mEq/L (19-29); Chloride 99 mEq/L (98-109); Glucose 176 mg/dL (70-99); Osmolality,Calculated 281 (280-300); Potassium 4.1 mEq/L (3.5-4.5); Sodium 132 mEq/L (136-145); eGFR For African Americans > 60 (> 60); eGFR For Non-African Americans > 60 (> 60)
[2016-06-18] MEDS: Lactulose Oral Soln 20 GM/30 ML UDC PO SCH ×2 (08:37→21:06)
[2016-06-18] MEDS: Gabapentin 400 MG CAPSULE PO SCH ×3 (08:37→21:06)
[2016-06-18] MEDS: rifAMPin 150 MG CAPSULE PO SCH ×2 (08:37→17:00)
[2016-06-18] MEDS: Aspirin 81 MG TAB.CHEW PO SCH (08:37)
[2016-06-18] MEDS: Metoprolol XL (24 HR) Succ 25 MG TAB.ER.24H PO SCH (08:37)
[2016-06-18] MEDS: Insulin LISPRO 300 UNITS/3 ML VIAL SQ SCH ×7 (08:38→22:13)
[2016-06-18] MEDS: MetroNIDAZOLE 500 MG/100 ML 500 MG/100 ML BAG IVPB SCH ×3 (08:38→23:39)
[2016-06-18] MEDS: Furosemide 20 MG/2 ML VIAL IVP SCH ×2 (08:38→17:01)
[2016-06-18] MEDS: Insulin DETEMIR 100 UNIT/ML X5UNITS SQ SCH ×2 (08:42→21:06)
[2016-06-18] MEDS: *HR* Morphine 2 MG/ML SYRINGE IVP PRN ×3 (10:15→23:38)
[2016-06-18] MEDS: Tiotropium 18 MCG inhalation IH SCH (10:23)
[2016-06-18] MEDS: Vancomycin 1,000 MG in D5% in Water 250 ML IVPB SCH ×2 (13:30→23:38)
--- NOTE | 2016-06-18 14:59 | Internal Med Progress Note ---
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 need at least 2 weeks of antibiotics from the date of surgery with a tentative end date of June 21, 2016. Rifampin started on 06/10/2016. 1 month of rifampin. metronidazole day 2, as one of the cultures showed growth of anaerobic gram- negative rods JOEY right 0.95 , left 0.76 He will follow up with Dr. Smith in 2 weeks at which time IV vancomycin may be prolonged depending on his clinical progression. Repeat blood cultures obtained on 06/08/2016 negative . awaiting Rehab . No family social support at all . Reported to social services aide patient is ready for rehabilitation Was rejected by the [place] rehabilitation Qualifiers: Sepsis type: methicillin resistant Staphylococcus aureus Qualified Code(s) : A41.02 - Sepsis due to Methicillin resistant Staphylococcus aureus (2) Cardiomyopathy Current Visit: Yes Status: Acute Assessment and plan: Stable ejection fraction of 45% with diastolic dysfunction Stable no systolic CHF exacerbation at the moment Continue metoprolol and aspirin Qualifiers: Cardiomyopathy type: unspecified Qualified Code(s): I42.9 - Cardiomyopathy , unspecified (3) Elevated troponin Current Visit: Yes Status: Acute Assessment and plan: Elevated troponins (adynamic) Secondary to demand ischemia Cardiology signed off (4) Diabetes mellitus Current Visit: Yes Status: Chronic Assessment and plan: Blood glucose UNcontrolled. Modified doses to Levemir 25 units twice a day and increased lispro up to 15 units 3 times a day plus sliding scale Outpatient follow-up with podiatry in 2 weeks of discharge. 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 Continue current medications. Qualifiers: Hypertension type: essential hypertension Qualified Code(s): I10 - Essential (primary) hypertension (6) Ischemic cardiomyopathy Current Visit: Yes Status: Chronic Assessment and plan: As above (7) Osteomyelitis Current Visit: Yes Status: Suspected Assessment and plan: MRI is indicative of R. 2nd metatarsal osteomyelitis. 2nd to MRSA, strep viridans, and enterococcus. Continue vancomycin. Need long-term antibiotics as discussed above High risk due to severe infection Qualifiers: Osteomyelitis location: foot Laterality: right Chronicity: acute Qualified Code(s): M86.171 - Other acute osteomyelitis, right ankle and foot - Time Spent With Patient Greater than 35 minutes - Subjective Interval history: Swelling has improved slightly on the right foot wound Complaining of pain in the right foot 8 out of 10 in intensity, denies any shortness of breath, no abdominal pain, no fevers, no dysuria, no diarrhea. No chest pain - Constitutional Vitals: Temp Pulse Resp BP Pulse Ox 97.9 F 86 18 138/73 97 06/18/16 04:53 06/18/16 08:00 06/18/16 10:23 06/18/16 08:00 06/18/16 10:23 General appearance: Present: A&O X 3. Absent: no acute distress - Head Head exam: Present: atraumatic, normocephalic - Eye Eye exam: Present: PERRL, conjuntiva pink, sclera anicteric Pupils: Present: PERRL - Neck Neck exam general surgery: Present: supple, trachea midline. Absent: lymphadenopathy - Respiratory Respiratory exam: Present: CTAB. Absent: accessory muscle use, rales, rhonchi, wheezes - Cardiovascular Cardiovascular exam: Present: RRR, +S1, +S2. Absent: diastolic murmur, gallop, rubs, systolic murmur - GI/Abdominal GI/Abdominal exam: Present: normal bowel sounds, soft, no peritoneal signs. Absent: distended, tenderness - Extremities Exam Extremities exam: Present: pedal edema, warm, radial pulses palpable and symetrical. Absent: calf tenderness, cyanotic Additional comments: Right second toe amputation wound covered by wound VAC wound appears necrotic, less inflamed - Neurological Exam Neurological exam: Present: CN II-XII intact, oriented X3, no focal deficits. Absent: pronater drift, facial droop, speech deficit - Skin Skin exam: Present: dry, intact Internal Medicine: Result - Labs CBC & Chem 7: 06/18/16 04:45 06/18/16 04:45 Labs: Short CBC 06/18/16 Range/Units 04:45 WBC 10.4 (4.3-11.1) K/mcL Hgb 10.5 L (12.9-16.9) g/dL Hct 31.7 L (37.5-50.1) % Plt Count 285 (140-400) K/mcL BMP 06/18/16 04:45 Sodium 132 L Potassium 4.1 Chloride 99 Carbon Dioxide 26 BUN 20 Creatinine 0.81 Glucose 176 H Calcium 9.1 - ABG Interpretation ABG results: ABG ABG pH 7.50 pH Units (7.32-7.45) H 06/06/16 05:14 ABG pCO2 37 mmHg (35-45) 06/06/16 05:14 ABG pO2 99 mmHg (85-104) 06/06/16 05:14 ABG O2 Saturation 98 % (95-98) 06/06/16 05:14 PT/INR, D-dimer PT 14.3 Seconds (9.4-12.1) H 06/12/16 09:45 Consult Discharge Plan - Plan Instructions: Heart Failure (DC), Chest Pain (DC), Pacemaker (DC), Methicillin Resistant Staphylococcus Aureus (DC), Methicillin Resistant Staphylococcus Aureus (GEN), Diabetes Mellitus Type 2 in Adults (DC), Chronic Wound Care (DC), Chronic Wound Care (GEN), Negative Pressure Wound Therapy (DC), Negative Pressure Wound Therapy (GEN) Referrals: NO,PCP [Primary Care Provider] -
--- NOTE | 2016-06-18 21:20 | Podiatry Progress Note ---
Date of Encounter: 06/18/16 Time of Encounter: : - Assessment and Plan (1) Foot ulcer Current Visit: Yes Status: Acute Due to the severity of the infection the patient will need 6 weeks of IV antibiotic therapy. Due to the culture results vancomycin will likely be needed with pharmacy dosing. PICC line will need to be placed. Patient will need to remain nonweightbearing to the right lower extremity. Dispense a surgical shoe although patient should remain nonweightbearing. Patient will follow-up one week after discharge. Patient will continue the wound VAC. Qualifiers: Laterality: right Non-pressure ulcer stage: with necrosis of muscle Qualified Code(s): L97.513 - Non-pressure chronic ulcer of other part of right foot with necrosis of muscle Subjective Principal diagnosis: Osteomyelitis/bacteremia, chest pain Interval history: Patient relates very little pain. Patient relates that he is feeling better since his surgery. Patient denies any other pedal complaints Objective - Vital Signs Vital Signs: Vital Signs Temp Pulse Resp BP Pulse Ox 06/18/16 16:00 98.2 F 80 18 141/88 97 06/18/16 10:23 18 97 06/18/16 08:00 86 18 138/73 97 06/18/16 04:53 97.9 F 84 15 141/73 94 L 06/17/16 22:01 98.0 F 87 17 127/66 96 Intake and Output 06/18/16 06/18/16 06/18/16 07:59 15:59 23:59 Intake Total 460 / 460 240 / 240 Output Total 650 / 650 450 / 450 400 / 400 Balance -650 / -650 -160 / -160 Intake: IV Fluids 100 / 100 Flagyl 500 MG/100 ML 500 100 / 100 mg In 100 ml @ 100 mls/hr IVPB Q8HR [facility] Rx#: [id number] Oral 360 / 360 240 / 240 Output: Urine 650 / 650 450 / 450 400 / 400 Other: Meal Lunch Dinner Percent of Meal Consumed 100% 100% Stool Size Moderate Stool Consistency formed Blood Glucose* 71 139 - Exam Exam: healing well, wound VAC intact. Pedal pulses are weakly palpable. Decreased sensation to bilateral lower extremity's. There is noted to be a new small skin abrasion along the third digit of the right foot. - Lab Result Diagrams: 06/18/16 04:45 06/18/16 04:45 Labs: Abnormal lab results RBC 3.47 M/mcL (4.19-5.50) L 06/18/16 04:45 Hgb 10.5 g/dL (12.9-16.9) L 06/18/16 04:45 Hct 31.7 % (37.5-50.1) L 06/18/16 04:45 Band Neutrophils % 8.0 % (0-4) H 06/06/16 06:01 ESR 107 mm/hr (0-10) H 06/08/16 04:24 PT 14.3 Seconds (9.4-12.1) H 06/12/16 09:45 APTT 54.8 Seconds (26.0-36.0) H 06/13/16 14:17 Heparin Anti-Xa, Unfract 0.23 IU/mL (0.30-0.70) L 06/12/16 17:00 ABG pH 7.50 pH Units (7.32-7.45) H 06/06/16 05:14 ABG HCO3 28.9 mEQ/L (21-27) H 06/06/16 05:14 ABG Total CO2 30.0 mEq/L (20-26) H 06/06/16 05:14 ABG Base Excess 5.4 mEq/L (-2.0 to 3.0) H 06/06/16 05:14 Sodium 132 mEq/L (136-145) L 06/18/16 04:45 Glucose 176 mg/dL (70-99) H 06/18/16 04:45 Iron 32 mcg/dL (65-175) L 06/11/16 15:38 % Saturation 13 % (20-55) L 06/11/16 15:38 Total Bilirubin 1.3 mg/dL (0.2-1.2) H 06/06/16 06:01 AST 44 Units/L (5-34) H 06/06/16 06:01 Alkaline Phosphatase 154 Units/L (38-126) H 06/06/16 06:01 Troponin I 0.49 ng/mL (0-0.03) H* 06/12/16 09:52 C-Reactive Protein 178 mg/L (Less than 5) H 06/08/16 04:24 Albumin 2.0 g/dL (3.5-5.0) L 06/11/16 15:38 Globulin 5.3 g/dL (2.4-3.5) H 06/06/16 06:01 Albumin/Globulin Ratio 0.4 (1.1-2.2) L 06/06/16 06:01 Prealbumin 5.0 mg/dL (18.0-45.0) L 06/11/16 15:38 HDL Cholesterol 16 mg/dL (40-59) L 06/08/16 04:24 Cholesterol/HDL Ratio 6.1 (0-4.9) H 06/08/16 04:24 Vitamin B12 1056 pg/mL (213-816) H 06/11/16 15:38 Staphylococcus sp PCR DETECTED (Not Detect) A 06/05/16 12:29 Staph aureus (PCR) DETECTED (Not Detect) A 06/05/16 12:29 MRS (TEM-PCR) DETECTED (Not Detect) A 06/05/16 12:29 Consult Discharge Plan - Plan Instructions: Heart Failure (DC), Chest Pain (DC), Pacemaker (DC), Methicillin Resistant Staphylococcus Aureus (DC), Methicillin Resistant Staphylococcus Aureus (GEN), Diabetes Mellitus Type 2 in Adults (DC), Chronic Wound Care (DC), Chronic Wound Care (GEN), Negative Pressure Wound Therapy (DC), Negative Pressure Wound Therapy (GEN) Referrals: NO,PCP [Primary Care Provider] -
[2016-06-19] MEDS: *HR* Heparin 5,000 UNIT/ML VIAL SQ SCH ×2 (05:12→17:38)
[2016-06-19] MEDS: *HR* Morphine 2 MG/ML SYRINGE IVP PRN ×3 (05:16→17:45)
[2016-06-19] MEDS: Insulin LISPRO 300 UNITS/3 ML VIAL SQ SCH ×7 (08:48→23:13)
[2016-06-19] MEDS: rifAMPin 150 MG CAPSULE PO SCH ×2 (08:57→17:38)
[2016-06-19] MEDS: Aspirin 81 MG TAB.CHEW PO SCH (08:57)
[2016-06-19] MEDS: Furosemide 20 MG/2 ML VIAL IVP SCH ×2 (08:57→17:38)
[2016-06-19] MEDS: Metoprolol XL (24 HR) Succ 25 MG TAB.ER.24H PO SCH (08:58)
[2016-06-19] MEDS: Gabapentin 400 MG CAPSULE PO SCH ×3 (08:58→23:14)
[2016-06-19] MEDS: *HR* HYDROcodone/Acet 7.5/325 mg TABLET PO PRN ×2 (08:58→15:05)
[2016-06-19] MEDS: Lactulose Oral Soln 20 GM/30 ML UDC PO SCH ×2 (08:59→23:13)
[2016-06-19] MEDS: Insulin DETEMIR 100 UNIT/ML X5UNITS SQ SCH ×2 (08:59→23:13)
[2016-06-19] MEDS: MetroNIDAZOLE 500 MG/100 ML 500 MG/100 ML BAG IVPB SCH ×3 (08:59→23:14)
--- NOTE | 2016-06-19 08:59 | Electrocardiograph Report ---
[facility] Test Date: 2016-06-16 Pat Name: DEMETRI JAMES Department: 111 Room: 2NE25 Gender: M Intermediate Manager: : [id number] Requested By: Klever Alvarez Order Number: [id number] Reading MD: Nain Rose MD Measurements Intervals [place] Rate: 78 P: 89 VA: 213 QRS: -42 QRSD: 93 T: 60 QT: 362 QTc: 395 Interpretive Statements SINUS RHYTHM WITH FIRST DEGREE AV BLOCK MARKED LEFT AXIS DEVIATION SEPTAL MYOCARDIAL INFARCTION, OF INDETERMINATE AGE BASELINE ARTIFACT Electronically Signed On 06-19-16 08:58:57 EST by Nain Rose MD
[2016-06-19] MEDS: Tiotropium 18 MCG inhalation IH SCH (11:21)
[2016-06-19] MEDS ORDERED: Ketorolac 15 MG/ML VIAL IVP PRN (14:51)
--- NOTE | 2016-06-19 14:55 | Internal Med Progress Note ---
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 Smith in 2 weeks at which time IV vancomycin may be prolonged depending on his clinical progression. Repeat blood cultures obtained on 06/08/2016 negative . awaiting Rehab . No family social support at all . Reported to outreach and education social worker patient is ready for rehabilitation Was rejected by the [place] rehabilitation Culture was positive for MRSA, Enterococcus faecalis, Streptococcus viridans and anaerobic gram-negative rods Qualifiers: Sepsis type: methicillin resistant Staphylococcus aureus Qualified Code(s) : A41.02 - Sepsis due to Methicillin resistant Staphylococcus aureus (2) Cardiomyopathy Current Visit: Yes Status: Acute Assessment and plan: Stable ejection fraction of 45% with diastolic dysfunction Stable no systolic CHF exacerbation at the moment Continue metoprolol and aspirin Qualifiers: Cardiomyopathy type: unspecified Qualified Code(s): I42.9 - Cardiomyopathy , unspecified (3) Elevated troponin Current Visit: Yes Status: Acute Assessment and plan: Elevated troponins (adynamic) Secondary to demand ischemia Cardiology signed off (4) Diabetes mellitus Current Visit: Yes Status: Chronic Assessment and plan: Blood glucose UNcontrolled. Modified doses to Levemir 25 units twice a day and increased lispro up to 15 units 3 times a day plus sliding scale Outpatient follow-up with podiatry in 2 weeks of discharge. 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 Continue current medications. Qualifiers: Hypertension type: essential hypertension Qualified Code(s): I10 - Essential (primary) hypertension (6) Ischemic cardiomyopathy Current Visit: Yes Status: Chronic Assessment and plan: As above (7) Osteomyelitis Current Visit: Yes Status: Suspected Assessment and plan: MRI is indicative of R. 2nd metatarsal osteomyelitis. 2nd to MRSA, strep viridans, and enterococcus. Continue vancomycin. Need long-term antibiotics as discussed above High risk due to severe infection Qualifiers: Osteomyelitis location: foot Laterality: right Chronicity: acute Qualified Code(s): M86.171 - Other acute osteomyelitis, right ankle and foot - Time Spent With Patient Greater than 35 minutes - Subjective Interval history: Complaining of pain in the right foot 7 out of 10 in intensity. Swelling has improved slightly on the right foot wound Denies any shortness of breath, no abdominal pain, no fevers, no dysuria, no diarrhea. No chest pain - Constitutional Vitals: Temp Pulse Resp BP Pulse Ox 97.8 F 91 18 134/81 94 L 06/19/16 08:08 06/19/16 08:08 06/19/16 11:22 06/19/16 08:08 06/19/16 11:22 General appearance: Present: A&O X 3. Absent: no acute distress - Head Head exam: Present: atraumatic, normocephalic - Eye Eye exam: Present: PERRL, conjuntiva pink, sclera anicteric Pupils: Present: PERRL - Neck Neck exam general surgery: Present: supple, trachea midline. Absent: lymphadenopathy - Respiratory Respiratory exam: Present: decreased breath sounds, CTAB. Absent: accessory muscle use, rales, rhonchi, wheezes - Cardiovascular Cardiovascular exam: Present: RRR, +S1, +S2. Absent: diastolic murmur, gallop, rubs, systolic murmur - GI/Abdominal GI/Abdominal exam: Present: normal bowel sounds, soft, no peritoneal signs. Absent: distended, tenderness - Extremities Exam Extremities exam: Present: warm, radial pulses palpable and symetrical. Absent : calf tenderness, cyanotic, pedal edema Additional comments: Right second toe amputation covered by drssing, oozing serosanguineous fluid wound appears necrotic, less inflamed - Neurological Exam Neurological exam: Present: CN II-XII intact, oriented X3, no focal deficits. Absent: pronater drift, facial droop, speech deficit - Skin Skin exam: Present: dry, intact Internal Medicine: Result - Labs CBC & Chem 7: 06/18/16 04:45 06/18/16 04:45 - ABG Interpretation ABG results: ABG ABG pH 7.50 pH Units (7.32-7.45) H 06/06/16 05:14 ABG pCO2 37 mmHg (35-45) 06/06/16 05:14 ABG pO2 99 mmHg (85-104) 06/06/16 05:14 ABG O2 Saturation 98 % (95-98) 06/06/16 05:14 PT/INR, D-dimer PT 14.3 Seconds (9.4-12.1) H 06/12/16 09:45 Consult Discharge Plan - Plan Instructions: Heart Failure (DC), Chest Pain (DC), Pacemaker (DC), Methicillin Resistant Staphylococcus Aureus (DC), Methicillin Resistant Staphylococcus Aureus (GEN), Diabetes Mellitus Type 2 in Adults (DC), Chronic Wound Care (DC), Chronic Wound Care (GEN), Negative Pressure Wound Therapy (DC), Negative Pressure Wound Therapy (GEN) Referrals: NO,PCP [Primary Care Provider] -
[2016-06-19] MEDS: Vancomycin 1,000 MG in D5% in Water 250 ML IVPB SCH (15:06)
[2016-06-19] MEDS: Famotidine 20 MG TABLET PO SCH (23:14)
[2016-06-20] MEDS: *HR* Morphine 2 MG/ML SYRINGE IVP PRN ×4 (00:30→20:13)
[2016-06-20] MEDS: Vancomycin 1,000 MG in D5% in Water 250 ML IVPB SCH ×2 (02:46→12:55)
[2016-06-20] MEDS: *HR* Heparin 5,000 UNIT/ML VIAL SQ SCH ×2 (06:32→18:01)
[2016-06-20 06:52] LABS: Hematocrit 33.3 % (37.5-50.1); Hemoglobin 10.7 g/dL (12.9-16.9); Mean Corpuscular HGB Conc 32.1 g/dL (31.6-35.5); Mean Corpuscular Hemoglobin 29.2 pg (28.0-33.3); Mean Platelet Volume 10.4 fL (9.4-12.4); Platelet Count 324 K/mcL (140-400); Red Blood Count 3.66 M/mcL (4.19-5.50); Red Cell Distribution Width 13.6 % (11.5-14.5)
[2016-06-20 07:05] LABS: BUN/Creatinine Ratio 29 (6-26); Blood Urea Nitrogen 27 mg/dL (8-26); Calcium 9.3 mg/dL (8.6-10.8); Carbon Dioxide 28 mEq/L (19-29); Chloride 100 mEq/L (98-109); Glucose 124 mg/dL (70-99); Osmolality,Calculated 281 (280-300); Potassium 4.5 mEq/L (3.5-4.5); Sodium 132 mEq/L (136-145); eGFR For African Americans > 60 (> 60); eGFR For Non-African Americans > 60 (> 60)
--- NOTE | 2016-06-20 08:27 | Podiatry Progress Note ---
Date of Encounter: 06/19/16 Time of Encounter: 08:19 - Assessment and Plan (1) Foot ulcer Current Visit: Yes Status: Acute Patient will need to remain nonweightbearing to the right lower extremity. Dispense a surgical shoe although patient should remain nonweightbearing. Patient will follow-up one week- 2weeks after discharge. Patient will discontinue the wound VAC. Daily dressing changes will be performed consisting of Adaptic and Kerlix. 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 Patient relates that he is feeling better since his surgery. Patient denies any other pedal complaints Objective - Vital Signs Vital Signs: Vital Signs Temp Pulse Resp BP Pulse Ox 06/20/16 05:23 98.2 F 87 15 117/79 95 06/19/16 20:50 98.7 F 93 18 145/86 98 06/19/16 16:53 98.4 F 87 18 122/61 95 06/19/16 11:22 18 94 L Intake and Output 06/19/16 06/20/16 06/20/16 23:59 07:59 15:59 Intake Total 250 / 250 Balance 250 / 250 Intake: IV Fluids 250 / 250 Vancocin 1,000 MG In 250 / 250 Dextrose 5% 250 ML @ 167 mls/hr IVPB Q12H [facility] Rx#: [id number] Other: Blood Glucose* 161 - Exam Exam: Decreased erythema and significant improvement noted. The wound VAC was removed and the incision site appears to be healing well within the normal limits. Patient continues to have decreased sensation consistent with peripheral neuropathy. No new signs or symptoms of infection. No deep ulceration or tunneling. - Lab Result Diagrams: 06/20/16 06:40 06/20/16 06:40 Labs: Abnormal lab results RBC 3.66 M/mcL (4.19-5.50) L 06/20/16 06:40 Hgb 10.7 g/dL (12.9-16.9) L 06/20/16 06:40 Hct 33.3 % (37.5-50.1) L 06/20/16 06:40 Band Neutrophils % 8.0 % (0-4) H 06/06/16 06:01 ESR 112 mm/hr (0-10) H 06/18/16 04:45 PT 14.3 Seconds (9.4-12.1) H 06/12/16 09:45 APTT 54.8 Seconds (26.0-36.0) H 06/13/16 14:17 Heparin Anti-Xa, Unfract 0.23 IU/mL (0.30-0.70) L 06/12/16 17:00 ABG pH 7.50 pH Units (7.32-7.45) H 06/06/16 05:14 ABG HCO3 28.9 mEQ/L (21-27) H 06/06/16 05:14 ABG Total CO2 30.0 mEq/L (20-26) H 06/06/16 05:14 ABG Base Excess 5.4 mEq/L (-2.0 to 3.0) H 06/06/16 05:14 Sodium 132 mEq/L (136-145) L 06/20/16 06:40 BUN 27 mg/dL (8-26) H 06/20/16 06:40 BUN/Creatinine Ratio 29 (6-26) H 06/20/16 06:40 Glucose 124 mg/dL (70-99) H 06/20/16 06:40 POC Glucose 122 (58-89) H 06/19/16 20:56 Iron 32 mcg/dL (65-175) L 06/11/16 15:38 % Saturation 13 % (20-55) L 06/11/16 15:38 Total Bilirubin 1.3 mg/dL (0.2-1.2) H 06/06/16 06:01 AST 44 Units/L (5-34) H 06/06/16 06:01 Alkaline Phosphatase 154 Units/L (38-126) H 06/06/16 06:01 Troponin I 0.49 ng/mL (0-0.03) H* 06/12/16 09:52 C-Reactive Protein 23 mg/L (Less than 5) H 06/18/16 11:50 Albumin 2.0 g/dL (3.5-5.0) L 06/11/16 15:38 Globulin 5.3 g/dL (2.4-3.5) H 06/06/16 06:01 Albumin/Globulin Ratio 0.4 (1.1-2.2) L 06/06/16 06:01 Prealbumin 5.0 mg/dL (18.0-45.0) L 06/11/16 15:38 HDL Cholesterol 16 mg/dL (40-59) L 06/08/16 04:24 Cholesterol/HDL Ratio 6.1 (0-4.9) H 06/08/16 04:24 Vitamin B12 1056 pg/mL (213-816) H 06/11/16 15:38 Staphylococcus sp PCR DETECTED (Not Detect) A 06/05/16 12:29 Staph aureus (PCR) DETECTED (Not Detect) A 06/05/16 12:29 MRS (TEM-PCR) DETECTED (Not Detect) A 06/05/16 12:29 Consult Discharge Plan - Plan Instructions: Heart Failure (DC), Chest Pain (DC), Pacemaker (DC), Methicillin Resistant Staphylococcus Aureus (DC), Methicillin Resistant Staphylococcus Aureus (GEN), Diabetes Mellitus Type 2 in Adults (DC), Chronic Wound Care (DC), Chronic Wound Care (GEN), Negative Pressure Wound Therapy (DC), Negative Pressure Wound Therapy (GEN) Referrals: NO,PCP [Primary Care Provider] -
[2016-06-20] MEDS: Insulin LISPRO 300 UNITS/3 ML VIAL SQ SCH ×7 (08:28→22:10)
[2016-06-20] MEDS: Furosemide 20 MG/2 ML VIAL IVP SCH ×2 (08:30→18:01)
[2016-06-20] MEDS: Aspirin 81 MG TAB.CHEW PO SCH (08:31)
[2016-06-20] MEDS: Gabapentin 400 MG CAPSULE PO SCH ×3 (08:31→20:14)
[2016-06-20] MEDS: Lactulose Oral Soln 20 GM/30 ML UDC PO SCH ×2 (08:31→20:14)
[2016-06-20] MEDS: Metoprolol XL (24 HR) Succ 25 MG TAB.ER.24H PO SCH (08:31)
[2016-06-20] MEDS: rifAMPin 150 MG CAPSULE PO SCH ×2 (08:31→18:03)
[2016-06-20] MEDS: Famotidine 20 MG TABLET PO SCH ×2 (08:31→20:14)
[2016-06-20] MEDS: MetroNIDAZOLE 500 MG/100 ML 500 MG/100 ML BAG IVPB SCH ×2 (08:32→15:01)
[2016-06-20] MEDS: Insulin DETEMIR 100 UNIT/ML X5UNITS SQ SCH ×2 (08:34→20:16)
--- NOTE | 2016-06-20 09:39 | Internal Med Progress Note ---
Date of Encounter: 06/20/16 Time of Encounter: 09:38 - Assessment and plan (1) Bacteremia due to methicillin resistant Staphylococcus aureus Current Visit: Yes Status: Acute (2) Cellulitis Current Visit: Yes Status: Acute Qualifiers: Site of cellulitis: extremity Site of cellulitis of extremity: lower extremity Laterality: right Qualified Code(s): L03.115 - Cellulitis of right lower limb (3) Sepsis Current Visit: Yes Status: Acute Qualifiers: Sepsis type: methicillin resistant Staphylococcus aureus Qualified Code(s) : A41.02 - Sepsis due to Methicillin resistant Staphylococcus aureus (4) HTN (hypertension) Current Visit: Yes Status: Chronic Qualifiers: Hypertension type: essential hypertension Qualified Code(s): I10 - Essential (primary) hypertension (5) Osteomyelitis Current Visit: Yes Status: Acute Qualifiers: Osteomyelitis location: foot Laterality: right Chronicity: acute Qualified Code(s): M86.171 - Other acute osteomyelitis, right ankle and foot (6) Ischemic cardiomyopathy Current Visit: Yes Status: Chronic Assessment and plan: continue iv vancomycin and flagyl podiatry notes reviewed. echo reviewed, no cardiac vegetations repeat blood culture negative daily dressing changes social service following for placement assistance when stable for discharge. - Subjective Interval history: f/u for osteo and bacteremia, pt reports some improvement. - Constitutional Vitals: Temp Pulse Resp BP Pulse Ox 97.8 F 93 18 121/75 95 06/20/16 08:27 06/20/16 08:27 06/20/16 08:27 06/20/16 08:27 06/20/16 08:27 General appearance: Present: A&O X 3. Absent: no acute distress - Head Head exam: Present: atraumatic, normocephalic - Eye Eye exam: Present: PERRL, conjuntiva pink, sclera anicteric Pupils: Present: PERRL - Neck Neck exam general surgery: Present: supple, trachea midline. Absent: lymphadenopathy - Respiratory Respiratory exam: Present: CTAB. Absent: accessory muscle use, rales, rhonchi, wheezes - Cardiovascular Cardiovascular exam: Present: RRR, +S1, +S2. Absent: diastolic murmur, gallop, rubs, systolic murmur - GI/Abdominal GI/Abdominal exam: Present: normal bowel sounds, soft, no peritoneal signs. Absent: distended, tenderness - Extremities Exam Extremities exam: Present: warm, radial pulses palpable and symetrical. Absent : calf tenderness, cyanotic, pedal edema Additional comments: right foot dressing clean and intact. - Neurological Exam Neurological exam: Present: CN II-XII intact, oriented X3, no focal deficits. Absent: pronater drift, facial droop, speech deficit - Skin Skin exam: Present: dry, intact Internal Medicine: Result - Labs CBC & Chem 7: 06/20/16 06:40 06/20/16 06:40 Labs: Short CBC 06/20/16 Range/Units 06:40 WBC 8.7 (4.3-11.1) K/mcL Hgb 10.7 L (12.9-16.9) g/dL Hct 33.3 L (37.5-50.1) % Plt Count 324 (140-400) K/mcL BMP 06/20/16 06:40 Sodium 132 L Potassium 4.5 Chloride 100 Carbon Dioxide 28 BUN 27 H Creatinine 0.92 Glucose 124 H Calcium 9.3 - ABG Interpretation ABG results: ABG ABG pH 7.50 pH Units (7.32-7.45) H 06/06/16 05:14 ABG pCO2 37 mmHg (35-45) 06/06/16 05:14 ABG pO2 99 mmHg (85-104) 06/06/16 05:14 ABG O2 Saturation 98 % (95-98) 06/06/16 05:14 PT/INR, D-dimer PT 14.3 Seconds (9.4-12.1) H 06/12/16 09:45 - Impressions Impressions Head CT 06/19/16 21:02 IMPRESSION: No acute intracranial abnormality. D/ / Carlos Lawler MD / Carlos Lawler MD Interpreting Provider: Carlos Lawler MD Consult Discharge Plan - Plan Instructions: Heart Failure (DC), Chest Pain (DC), Pacemaker (DC), Methicillin Resistant Staphylococcus Aureus (DC), Methicillin Resistant Staphylococcus Aureus (GEN), Diabetes Mellitus Type 2 in Adults (DC), Chronic Wound Care (DC), Chronic Wound Care (GEN), Negative Pressure Wound Therapy (DC), Negative Pressure Wound Therapy (GEN) Referrals: NO,PCP [Primary Care Provider] -
[2016-06-20] MEDS: Tiotropium 18 MCG inhalation IH SCH (10:50)
[2016-06-20] MEDS: *HR* HYDROcodone/Acet 7.5/325 mg TABLET PO PRN (15:01)
[2016-06-21] MEDS: Vancomycin 1,000 MG in D5% in Water 250 ML IVPB SCH ×2 (00:16→14:21)
[2016-06-21] MEDS: MetroNIDAZOLE 500 MG/100 ML 500 MG/100 ML BAG IVPB SCH ×3 (00:16→17:51)
[2016-06-21 04:50] LABS: BUN/Creatinine Ratio 27 (6-26); Blood Urea Nitrogen 25 mg/dL (8-26); Calcium 9.2 mg/dL (8.6-10.8); Carbon Dioxide 25 mEq/L (19-29); Chloride 98 mEq/L (98-109); Glucose 285 mg/dL (70-99); Osmolality,Calculated 287 (280-300); Potassium 4.6 mEq/L (3.5-4.5); Sodium 131 mEq/L (136-145); eGFR For African Americans > 60 (> 60); eGFR For Non-African Americans > 60 (> 60)
[2016-06-21] MEDS: *HR* Heparin 5,000 UNIT/ML VIAL SQ SCH ×2 (05:41→17:50)
[2016-06-21] MEDS: Tiotropium 18 MCG inhalation IH SCH (08:18)
--- NOTE | 2016-06-21 08:57 | Internal Med Progress Note ---
Date of Encounter: 06/21/16 Time of Encounter: 08:56 - Assessment and plan (1) Bacteremia due to methicillin resistant Staphylococcus aureus Current Visit: Yes Status: Acute (2) Cellulitis Current Visit: Yes Status: Acute Qualifiers: Site of cellulitis: extremity Site of cellulitis of extremity: lower extremity Laterality: right Qualified Code(s): L03.115 - Cellulitis of right lower limb (3) Sepsis Current Visit: Yes Status: Acute Qualifiers: Sepsis type: methicillin resistant Staphylococcus aureus Qualified Code(s) : A41.02 - Sepsis due to Methicillin resistant Staphylococcus aureus (4) HTN (hypertension) Current Visit: Yes Status: Chronic Qualifiers: Hypertension type: essential hypertension Qualified Code(s): I10 - Essential (primary) hypertension (5) Osteomyelitis Current Visit: Yes Status: Acute Qualifiers: Osteomyelitis location: foot Laterality: right Chronicity: acute Qualified Code(s): M86.171 - Other acute osteomyelitis, right ankle and foot (6) Ischemic cardiomyopathy Current Visit: Yes Status: Chronic Assessment and plan: continue iv vancomycin and flagyl appreciate podiatry input echo reviewed, no cardiac vegetations repeat blood culture negative daily dressing changes social service following for placement assistance when stable for discharge. - Subjective Interval history: f/u for osteo and bacteremia, pt reports some improvement. - Constitutional Vitals: Temp Pulse Resp BP Pulse Ox 98.4 F 90 17 138/79 95 06/21/16 08:16 06/21/16 08:16 06/21/16 08:21 06/21/16 08:16 06/21/16 08:21 General appearance: Present: A&O X 3. Absent: no acute distress - Head Head exam: Present: atraumatic, normocephalic - Eye Eye exam: Present: PERRL, conjuntiva pink, sclera anicteric Pupils: Present: PERRL - Neck Neck exam general surgery: Present: supple, trachea midline. Absent: lymphadenopathy - Respiratory Respiratory exam: Present: CTAB. Absent: accessory muscle use, rales, rhonchi, wheezes - Cardiovascular Cardiovascular exam: Present: RRR, +S1, +S2. Absent: diastolic murmur, gallop, rubs, systolic murmur - GI/Abdominal GI/Abdominal exam: Present: normal bowel sounds, soft, no peritoneal signs. Absent: distended, tenderness - Extremities Exam Extremities exam: Present: normal inspection, warm, radial pulses palpable and symetrical. Absent: calf tenderness, cyanotic, pedal edema Additional comments: right foot dressing clean and intact. - Neurological Exam Neurological exam: Present: CN II-XII intact, oriented X3, no focal deficits. Absent: pronater drift, facial droop, speech deficit - Skin Skin exam: Present: dry, intact Internal Medicine: Result - Labs CBC & Chem 7: 06/20/16 06:40 06/21/16 04:00 Labs: BMP 06/21/16 04:00 Sodium 131 L Potassium 4.6 H Chloride 98 Carbon Dioxide 25 BUN 25 Creatinine 0.93 Glucose 285 H Calcium 9.2 - ABG Interpretation ABG results: ABG ABG pH 7.50 pH Units (7.32-7.45) H 06/06/16 05:14 ABG pCO2 37 mmHg (35-45) 06/06/16 05:14 ABG pO2 99 mmHg (85-104) 06/06/16 05:14 ABG O2 Saturation 98 % (95-98) 06/06/16 05:14 PT/INR, D-dimer PT 14.3 Seconds (9.4-12.1) H 06/12/16 09:45 Consult Discharge Plan - Plan Instructions: Heart Failure (DC), Chest Pain (DC), Pacemaker (DC), Methicillin Resistant Staphylococcus Aureus (DC), Methicillin Resistant Staphylococcus Aureus (GEN), Diabetes Mellitus Type 2 in Adults (DC), Chronic Wound Care (DC), Chronic Wound Care (GEN), Negative Pressure Wound Therapy (DC), Negative Pressure Wound Therapy (GEN) Referrals: NO,PCP [Primary Care Provider] -
[2016-06-21] MEDS: Insulin LISPRO 300 UNITS/3 ML VIAL SQ SCH ×6 (09:53→17:51)
[2016-06-21] MEDS: Lactulose Oral Soln 20 GM/30 ML UDC PO SCH ×2 (09:54→20:53)
[2016-06-21] MEDS: Furosemide 20 MG/2 ML VIAL IVP SCH ×2 (09:54→17:50)
[2016-06-21] MEDS: rifAMPin 150 MG CAPSULE PO SCH ×2 (09:55→17:51)
[2016-06-21] MEDS: Metoprolol XL (24 HR) Succ 25 MG TAB.ER.24H PO SCH (09:55)
[2016-06-21] MEDS: Aspirin 81 MG TAB.CHEW PO SCH (09:56)
[2016-06-21] MEDS: Famotidine 20 MG TABLET PO SCH ×2 (09:56→20:46)
[2016-06-21] MEDS: Gabapentin 400 MG CAPSULE PO SCH ×3 (09:56→20:46)
[2016-06-21] MEDS: Insulin DETEMIR 100 UNIT/ML X5UNITS SQ SCH ×2 (09:57→20:53)
--- NOTE | 2016-06-21 12:33 | Podiatry Progress Note ---
Date of Encounter: 06/21/16 Time of Encounter: 11:30 - Assessment and Plan (1) Cellulitis Current Visit: Yes Status: Acute Continue current antibiotic therapy Patient will go home with 6 weeks IV antibiotic therapy Qualifiers: Site of cellulitis: extremity Site of cellulitis of extremity: lower extremity Laterality: right Qualified Code(s): L03.115 - Cellulitis of right lower limb (2) Foot ulcer Current Visit: Yes Status: Acute Assessed and examined cleansed with saline, 4x4 and kerlex applied at bedside Change dressing changes to BID- Betadine, adaptic, 4x4 and kerlex Continue to monitor for clinical signs of infection Monitor maceration, call if worsening is noted PICC line in place at this time Patient to go home with post op shoe and limited weight bearing Patient does not have home- awaiting SW decision for ECF placement Follow up 1 week after discharge Qualifiers: Laterality: right Non-pressure ulcer stage: with necrosis of muscle Qualified Code(s): L97.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 - Non-pressure chronic ulcer of other part of right foot with necrosis of muscle (3) Diabetes mellitus Current Visit: Yes Status: Chronic Qualifiers: Diabetes mellitus type: type 2 Diabetes mellitus complication status: with skin complications Diabetes mellitus complication detail: with foot ulcer 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 Amputation of the entire second digit right foot. Excision of ulceration plantar aspect right foot. Partial resection of second metatarsal, right foot. Bone biopsy. Flap advancement right foot. Application of wound VAC- since removed Patient resting in bed on arrival. Complains of pain to RLE. Patient denies any current issues or concerns Patient states he did have some chills during the night. Patient denies any sob, calf pain or chest pain. Patient states he does not have a home at this time because he and his gf split up. Family at bedside. Dressing to surgical site has been removed at this time. Objective - Vital Signs Vital Signs: Vital Signs Temp Pulse Resp BP Pulse Ox 06/21/16 11:59 98.8 F 91 16 128/71 98 06/21/16 08:21 17 95 06/21/16 08:16 98.4 F 90 16 138/79 98 06/21/16 04:08 86 15 134/74 06/20/16 20:28 97.6 F 87 16 154/81 95 06/20/16 17:00 97.6 F 86 18 132/78 94 L Intake and Output 06/20/16 06/21/16 06/21/16 23:59 07:59 15:59 Intake Total 220 / 220 340 / 340 240 / 240 Output Total 6850 / 6850 600 / 600 375 / 375 Balance -6630 / -6630 -260 / -260 -135 / -135 Intake: IV Fluids 100 / 100 100 / 100 Flagyl 500 MG/100 ML 500 100 / 100 100 / 100 mg In 100 ml @ 100 mls/hr IVPB Q8HR [facility] Rx#: [id number] Oral 120 / 120 240 / 240 240 / 240 Output: Urine 850 / 850 600 / 600 375 / 375 Urine/Stool Mix 6000 / 6000 Other: Meal Dinner Breakfast Percent of Meal Consumed 75% 45% Weight 90.2 kg Blood Glucose* 172 212 Patient Weight 06/21/16 23:59 Weight 90.2 kg - Exam Exam: Patient awake alert and oriented Incision site inspected, appears to be healing without complication No clinical signs of infection. No warmth, edema, erythema, drainage or odor No pain with palpation Sutures and suture line intact Mild maceration noted to webspace of toes and to plantar aspect of incision to right foot. Patient has loss of protective sensation and very limited sensation to touch Pulses +1/4 Cap refill time <3 seconds No edema No calf pain - Lab Result Diagrams: 06/20/16 06:40 06/21/16 04:00 Labs: Abnormal lab results RBC 3.66 M/mcL (4.19-5.50) L 06/20/16 06:40 Hgb 10.7 g/dL (12.9-16.9) L 06/20/16 06:40 Hct 33.3 % (37.5-50.1) L 06/20/16 06:40 Band Neutrophils % 8.0 % (0-4) H 06/06/16 06:01 ESR 112 mm/hr (0-10) H 06/18/16 04:45 PT 14.3 Seconds (9.4-12.1) H 06/12/16 09:45 APTT 54.8 Seconds (26.0-36.0) H 06/13/16 14:17 Heparin Anti-Xa, Unfract 0.23 IU/mL (0.30-0.70) L 06/12/16 17:00 ABG pH 7.50 pH Units (7.32-7.45) H 06/06/16 05:14 ABG HCO3 28.9 mEQ/L (21-27) H 06/06/16 05:14 ABG Total CO2 30.0 mEq/L (20-26) H 06/06/16 05:14 ABG Base Excess 5.4 mEq/L (-2.0 to 3.0) H 06/06/16 05:14 Sodium 131 mEq/L (136-145) L 06/21/16 04:00 Potassium 4.6 mEq/L (3.5-4.5) H 06/21/16 04:00 BUN/Creatinine Ratio 27 (6-26) H 06/21/16 04:00 Glucose 285 mg/dL (70-99) H 06/21/16 04:00 POC Glucose 172 (58-89) H 06/20/16 21:48 Iron 32 mcg/dL (65-175) L 06/11/16 15:38 % Saturation 13 % (20-55) L 06/11/16 15:38 Total Bilirubin 1.3 mg/dL (0.2-1.2) H 06/06/16 06:01 AST 44 Units/L (5-34) H 06/06/16 06:01 Alkaline Phosphatase 154 Units/L (38-126) H 06/06/16 06:01 Troponin I 0.49 ng/mL (0-0.03) H* 06/12/16 09:52 C-Reactive Protein 23 mg/L (Less than 5) H 06/18/16 11:50 Albumin 2.0 g/dL (3.5-5.0) L 06/11/16 15:38 Globulin 5.3 g/dL (2.4-3.5) H 06/06/16 06:01 Albumin/Globulin Ratio 0.4 (1.1-2.2) L 06/06/16 06:01 Prealbumin 5.0 mg/dL (18.0-45.0) L 06/11/16 15:38 HDL Cholesterol 16 mg/dL (40-59) L 06/08/16 04:24 Cholesterol/HDL Ratio 6.1 (0-4.9) H 06/08/16 04:24 Vitamin B12 1056 pg/mL (213-816) H 06/11/16 15:38 Staphylococcus sp PCR DETECTED (Not Detect) A 06/05/16 12:29 Staph aureus (PCR) DETECTED (Not Detect) A 06/05/16 12:29 MRS (TEM-PCR) DETECTED (Not Detect) A 06/05/16 12:29 Consult Discharge Plan - Plan Instructions: Heart Failure (DC), Chest Pain (DC), Pacemaker (DC), Methicillin Resistant Staphylococcus Aureus (DC), Methicillin Resistant Staphylococcus Aureus (GEN), Diabetes Mellitus Type 2 in Adults (DC), Chronic Wound Care (DC), Chronic Wound Care (GEN), Negative Pressure Wound Therapy (DC), Negative Pressure Wound Therapy (GEN) Referrals: NO,PCP [Primary Care Provider] -
[2016-06-21] MEDS: *HR* HYDROcodone/Acet 7.5/325 mg TABLET PO PRN ×2 (12:41→20:46)
[2016-06-22] MEDS: Insulin LISPRO 300 UNITS/3 ML VIAL SQ SCH ×5 (00:04→12:27)
[2016-06-22] MEDS: MetroNIDAZOLE 500 MG/100 ML 500 MG/100 ML BAG IVPB SCH ×3 (00:08→16:05)
[2016-06-22] MEDS: Vancomycin 1,000 MG in D5% in Water 250 ML IVPB SCH ×2 (00:09→12:27)
[2016-06-22] MEDS: *HR* HYDROcodone/Acet 7.5/325 mg TABLET PO PRN ×2 (02:41→10:54)
[2016-06-22 04:39] LABS: BUN/Creatinine Ratio 30 (6-26); Blood Urea Nitrogen 29 mg/dL (8-26); Calcium 9.2 mg/dL (8.6-10.8); Carbon Dioxide 24 mEq/L (19-29); Chloride 100 mEq/L (98-109); Glucose 247 mg/dL (70-99); Osmolality,Calculated 286 (280-300); Potassium 4.8 mEq/L (3.5-4.5); Sodium 131 mEq/L (136-145); eGFR For African Americans > 60 (> 60); eGFR For Non-African Americans > 60 (> 60)
[2016-06-22] MEDS: *HR* Heparin 5,000 UNIT/ML VIAL SQ SCH (05:32)
[2016-06-22 08:12] VITALS: BP 126/80
--- NOTE | 2016-06-22 09:12 | Internal Med Progress Note ---
Date of Encounter: 06/22/16 Time of Encounter: 09:10 - Assessment and plan (1) Bacteremia due to methicillin resistant Staphylococcus aureus Current Visit: Yes Status: Acute (2) Cellulitis Current Visit: Yes Status: Acute Qualifiers: Site of cellulitis: extremity Site of cellulitis of extremity: lower extremity Laterality: right Qualified Code(s): L03.115 - Cellulitis of right lower limb (3) Sepsis Current Visit: Yes Status: Acute Qualifiers: Sepsis type: methicillin resistant Staphylococcus aureus Qualified Code(s) : A41.02 - Sepsis due to Methicillin resistant Staphylococcus aureus (4) HTN (hypertension) Current Visit: Yes Status: Chronic Qualifiers: Hypertension type: essential hypertension Qualified Code(s): I10 - Essential (primary) hypertension (5) Osteomyelitis Current Visit: Yes Status: Acute Qualifiers: Osteomyelitis location: foot Laterality: right Chronicity: acute Qualified Code(s): M86.171 - Other acute osteomyelitis, right ankle and foot (6) Ischemic cardiomyopathy Current Visit: Yes Status: Chronic Assessment and plan: continue iv vancomycin. Stop flagyl, will need for total of 6 weeks. echo reviewed, no cardiac vegetations repeat blood culture negative daily dressing changes social service following for placement assistance when stable for discharge. analgesics prn for ankle sprain. - Subjective Interval history: f/u for osteo and bacteremia, pt reports accidental fall today with ankle sprain. - Constitutional Vitals: Temp Pulse Resp BP Pulse Ox 97.9 F 89 18 126/80 95 06/22/16 08:00 06/22/16 08:00 06/22/16 08:00 06/22/16 08:00 06/22/16 08:00 General appearance: Present: A&O X 3. Absent: no acute distress - Head Head exam: Present: atraumatic, normocephalic - Eye Eye exam: Present: PERRL, conjuntiva pink, sclera anicteric Pupils: Present: PERRL - Neck Neck exam general surgery: Present: supple, trachea midline. Absent: lymphadenopathy - Respiratory Respiratory exam: Present: CTAB. Absent: accessory muscle use, rales, rhonchi, wheezes - Cardiovascular Cardiovascular exam: Present: RRR, +S1, +S2. Absent: diastolic murmur, gallop, rubs, systolic murmur - GI/Abdominal GI/Abdominal exam: Present: normal bowel sounds, soft, no peritoneal signs. Absent: distended, tenderness - Extremities Exam Extremities exam: Present: warm, radial pulses palpable and symetrical. Absent : calf tenderness, cyanotic, pedal edema Additional comments: right foot dressing clean and intact. - Neurological Exam Neurological exam: Present: CN II-XII intact, oriented X3, no focal deficits. Absent: pronater drift, facial droop, speech deficit - Skin Skin exam: Present: dry, intact Internal Medicine: Result - Labs CBC & Chem 7: 06/20/16 06:40 06/22/16 04:24 Labs: BMP 06/22/16 04:24 Sodium 131 L Potassium 4.8 H Chloride 100 Carbon Dioxide 24 BUN 29 H Creatinine 0.96 Glucose 247 H Calcium 9.2 - ABG Interpretation ABG results: ABG ABG pH 7.50 pH Units (7.32-7.45) H 06/06/16 05:14 ABG pCO2 37 mmHg (35-45) 06/06/16 05:14 ABG pO2 99 mmHg (85-104) 06/06/16 05:14 ABG O2 Saturation 98 % (95-98) 06/06/16 05:14 PT/INR, D-dimer PT 14.3 Seconds (9.4-12.1) H 06/12/16 09:45 Consult Discharge Plan - Plan Instructions: Heart Failure (DC), Chest Pain (DC), Pacemaker (DC), Methicillin Resistant Staphylococcus Aureus (DC), Methicillin Resistant Staphylococcus Aureus (GEN), Diabetes Mellitus Type 2 in Adults (DC), Chronic Wound Care (DC), Chronic Wound Care (GEN), Negative Pressure Wound Therapy (DC), Negative Pressure Wound Therapy (GEN) Referrals: NO,PCP [Primary Care Provider] -
[2016-06-22] MEDS: Lactulose Oral Soln 20 GM/30 ML UDC PO SCH (10:53)
[2016-06-22] MEDS: Aspirin 81 MG TAB.CHEW PO SCH (10:54)
[2016-06-22] MEDS: Metoprolol XL (24 HR) Succ 25 MG TAB.ER.24H PO SCH (10:54)
[2016-06-22] MEDS: Gabapentin 400 MG CAPSULE PO SCH ×2 (10:54→16:04)
[2016-06-22] MEDS: rifAMPin 150 MG CAPSULE PO SCH ×2 (10:55→16:05)
[2016-06-22] MEDS: Famotidine 20 MG TABLET PO SCH (10:55)
[2016-06-22] MEDS: Furosemide 20 MG TABLET PO SCH ×2 (10:56→16:05)
[2016-06-22] MEDS: Insulin DETEMIR 100 UNIT/ML X5UNITS SQ SCH (10:56)
[2016-06-22] MEDS: Tiotropium 18 MCG inhalation IH SCH (10:57)
[2016-06-22] MEDS ORDERED: FLU VACC QS2016-17 36MOS UP/PF 0.5 ML SYRINGE IM ONE (14:38)
--- NOTE | 2016-06-22 17:13 | Discharge Summary ---
Date of Encounter: 06/22/16 Time of Encounter: 17:10 - Discharge Diagnosis (1) Bacteremia due to methicillin resistant Staphylococcus aureus Priority: Primary Status: Acute (2) Cellulitis Priority: Primary Status: Acute Qualifiers: Site of cellulitis: extremity Site of cellulitis of extremity: lower extremity Laterality: right Qualified Code(s): L03.115 - Cellulitis of right lower limb (3) Sepsis Priority: Primary Status: Acute Qualifiers: Sepsis type: methicillin resistant Staphylococcus aureus Qualified Code(s) : A41.02 - Sepsis due to Methicillin resistant Staphylococcus aureus (4) HTN (hypertension) Priority: Secondary Status: Chronic Qualifiers: Hypertension type: essential hypertension Qualified Code(s): I10 - Essential (primary) hypertension (5) Osteomyelitis Priority: Primary Status: Acute Qualifiers: Osteomyelitis location: foot Laterality: right Chronicity: acute Qualified Code(s): M86.171 - Other acute osteomyelitis, right ankle and foot (6) Ischemic cardiomyopathy Priority: Secondary Status: Chronic - Discharge Medications Prescriptions: HYDROcodone/Acet 7.5/325 mg [[place] 7.5-325 mg] 1 tab PO Q6HR PRN #20 tablet PRN Reason: Pain Vancomycin HCl in Dextrose 5 % [Vancomycin-D5w 1 G/250 ml] 1 gm IV Q12HR 22 Days Home Medications: Aspirin [Lo-Dose Aspirin EC] 162 mg PO DAILY 06/05/16 [History] Escitalopram [Lexapro] 20 mg PO DAILY 06/05/16 [History] Gabapentin [Neurontin] 800 mg PO TID 06/05/16 [History] Lactulose 15 ml PO BID 06/05/16 [History] Prazosin [Minipress] 1 mg PO HS 06/05/16 [History] Atorvastatin [Lipitor] 80 mg PO HS tablet 06/22/16 [Rx] Furosemide [Lasix] 20 mg PO BIDDIURETIC tablet 06/22/16 [Rx] HYDROcodone/Acet 7.5/325 mg [[place] 7.5-325 mg] 1 tab PO Q6HR PRN #20 tablet 05/27 [Rx] Insulin DETEMIR [Levemir] 25 unit SQ BID [id number] 06/22/16 [Rx] Insulin LISPRO [HumaLOG] 15 units SQ TIDAC vial 06/22/16 [Rx] Lisinopril [Zestril] 5 mg PO DAILY tablet 06/22/16 [Rx] Metoprolol XL (24 HR) Succ [Toprol Xl] 50 mg PO DAILY tab.er.24h 06/22/16 [Rx] Nicotine Patch [Nicoderm] 21 mg TD DAILY PRN #0 patch.td24 06/22/16 [Rx] Rifampin [Rifadin] 300 mg PO BIDAC capsule 06/22/16 [Rx] Tiotropium [Spiriva] 18 mcg IH DAILYR inh 06/22/16 [Rx] Vancomycin HCl in Dextrose 5 % [Vancomycin-D5w 1 G/250 ml] 1 gm IV Q12HR 22 Days 06/22/16 [Rx] Allergies/Adverse Reactions: Allergies No Known Allergies Allergy (Verified 11/30/15 16:37) Procedures/tests Complete & Pending: Procedures Performed prior 72 hours Category Date Time Status CT head/brain wo con [CT] Routine Cat Scan 06/19/16 21:02 Completed Date of admission: 06/05/16 13:51 Primary care physician: PCP NO Consults: 06/06/16 04:09 Consult to Nurse Navigator [CONS] Routine Comment: 06/07/16 14:26 Consult to Home Visitor [employer] [CONS] Routine Reason for SW Consult: will need 6 weeks iv atb and wound vac verified with sessions. 06/07/16 17:52 Consult to Cardiology [CONS] Routine Comment: Consulting Provider: Sharyn Hernadez Reason for Consult: New onset CHF; 2/2 blood cultures for MRSA; No cardiac history in the past Call Completed: No 06/08/16 11:19 Consult to Pastoral Services [CONS] Routine Comment: pt request 06/09/16 12:14 Consult to Invasive Line Access Team [CONS] Routine Reason for Consult: Picc Line Insertion Line Type: PICC - Patient Status Disposition: Transfer SNF Condition: Good Overall status at discharge: patient is progressing back to baseline - Discharge Instructions Instructions: Heart Failure (DC), Chest Pain (DC), Pacemaker (DC), Methicillin Resistant Staphylococcus Aureus (DC), Methicillin Resistant Staphylococcus Aureus (GEN), Diabetes Mellitus Type 2 in Adults (DC), Chronic Wound Care (DC), Chronic Wound Care (GEN) Follow Up With: Pranav Smith DPM [Partnered Physician] - 06/29/16 2:30 pm NO,PCP [Primary Care Provider] - - Diet and Activity Activity: increase activity as tolerated Diet: advance to your usual diet Hospital course: Mr. Mcneil is a 65 year old male who presented with right diabetic foot ulcer and was found to have osteo with bactermia, he was treated with broad spectrum abx and was seen by podiatry. He had Incision and drainage right foot, Amputation of the entire second digit right foot, Excision of ulceration plantar aspect right foot, Partial resection of second metatarsal, right foot, Bone biopsy and Flap advancement right foot. Pt will be continued on abx for a total of 6 weeks. He was also seen by cardiology for abnormal LVEF and systolic heart failure, he is started on diuretics and Continue asa, statin, and beta-kayley. He has been asked to follow up outpatient. Patient will be discharged to SNF where his vancomycin will be administered and monitored by that MD and pharmacist at the SNF. He should continue IV Vanc. till jul 14 with weekly lab monitoring. - Time Spent with Patient Total time spent providing and/or coordinating discharge services: - Constitutional Vitals: Temp Pulse Resp BP Pulse Ox 97.9 F 89 18 126/80 95 06/22/16 08:00 06/22/16 08:00 06/22/16 10:57 06/22/16 08:00 06/22/16 10:57 General appearance: Present: A&O X 3. Absent: no acute distress - Head Head exam: Present: atraumatic, normocephalic - Eye Eye exam: Present: PERRL, conjuntiva pink, sclera anicteric Pupils: Present: PERRL - Neck Neck exam general surgery: Present: supple, trachea midline. Absent: lymphadenopathy - Respiratory Respiratory exam: Present: CTAB. Absent: accessory muscle use, rales, rhonchi, wheezes - Cardiovascular Cardiovascular exam: Present: RRR, +S1, +S2. Absent: diastolic murmur, gallop, rubs, systolic murmur - GI/Abdominal GI/Abdominal exam: Present: normal bowel sounds, soft, no peritoneal signs. Absent: distended, tenderness - Extremities Exam Extremities exam: Present: warm, radial pulses palpable and symetrical. Absent : calf tenderness, cyanotic, pedal edema Additional comments: right foot wound dressing clean and intact. moving all extremities. - Neurological Exam Neurological exam: Present: CN II-XII intact, oriented X3, no focal deficits. Absent: pronater drift, facial droop, speech deficit - Skin Skin exam: Present: dry, intact
[2016-06-22] MEDS ORDERED: *HR* Morphine 2 MG/ML SYRINGE IVP ONE (17:42)
--- NOTE | 2016-06-22 17:47 | Physician Discharge Referral ---
ExtendedCare Referral Info Transfer To: SNF Institutional Level of Care: Skilled - Diagnosis (1) Bacteremia due to methicillin resistant Staphylococcus aureus Status: Acute (2) Cellulitis Status: Acute (3) Sepsis Status: Acute (4) HTN (hypertension) Status: Chronic (5) Osteomyelitis Status: Acute (6) Ischemic cardiomyopathy Status: Chronic - Transfer Medications Prescriptions: HYDROcodone/Acet 7.5/325 mg [[place] 7.5-325 mg] 1 tab PO Q6HR PRN #20 tablet PRN Reason: Pain Vancomycin HCl in Dextrose 5 % [Vancomycin-D5w 1 G/250 ml] 1 gm IV Q12HR 22 Days Home Medications: Aspirin [Lo-Dose Aspirin EC] 162 mg PO DAILY 06/05/16 [History] Escitalopram [Lexapro] 20 mg PO DAILY 06/05/16 [History] Gabapentin [Neurontin] 800 mg PO TID 06/05/16 [History] Lactulose 15 ml PO BID 06/05/16 [History] Prazosin [Minipress] 1 mg PO HS 06/05/16 [History] Atorvastatin [Lipitor] 80 mg PO HS tablet 06/22/16 [Rx] Furosemide [Lasix] 20 mg PO BIDDIURETIC tablet 06/22/16 [Rx] HYDROcodone/Acet 7.5/325 mg [[place] 7.5-325 mg] 1 tab PO Q6HR PRN #20 tablet 05/27 [Rx] Insulin DETEMIR [Levemir] 25 unit SQ BID [id number] 06/22/16 [Rx] Insulin LISPRO [HumaLOG] 15 units SQ TIDAC vial 06/22/16 [Rx] Lisinopril [Zestril] 5 mg PO DAILY tablet 06/22/16 [Rx] Metoprolol XL (24 HR) Succ [Toprol Xl] 50 mg PO DAILY tab.er.24h 06/22/16 [Rx] Nicotine Patch [Nicoderm] 21 mg TD DAILY PRN #0 patch.td24 06/22/16 [Rx] Rifampin [Rifadin] 300 mg PO BIDAC capsule 06/22/16 [Rx] Tiotropium [Spiriva] 18 mcg IH DAILYR inh 06/22/16 [Rx] Vancomycin HCl in Dextrose 5 % [Vancomycin-D5w 1 G/250 ml] 1 gm IV Q12HR 22 Days 06/22/16 [Rx] Allergies/Adverse Reactions: Allergies No Known Allergies Allergy (Verified 11/30/15 16:37) - Respiratory Orders Smoking Cessation: Smoking cessation has been advised. For more information, call the [place] Tobacco Quit Line at 8-606-UGTP-NOW. - Advance Directives Code Status: Full Code - Mobility Orders Ambulate - Diet Orders Cardiac CERTIFICATION: I certify that the transfer of the above named patient to an Extended Care Facility is necessary for the continuing treatment of the diagnosis listed. The above information is true and accurate reflection of patient's current condition. Confidential - Redisclosure prohibited without a patient's written consent.
[2016-06-22] MEDS ORDERED: Aminoglycoside Consult 1 EACH MC ONE (19:04)
== END 2016-06-22 19:05 | DRG 853 ==
LOC: EMEROO 11:03 → 3NENU 11:03 → SUATTDRO 13:51 → OBSVTOIN 13:51 → 3NENU 14:31 → 2NENU 06-12 11:12
PROVIDERS: ADMIT Internal Medicine Sleep Medicine; ATTEND Family Medicine